=== PATIENT | female | born 1955 | race Caucasian/White ===

== ENCOUNTER 2019-12-10 | Outpatient (REF) | payer OTHER, SELFPAY | END 2019-12-10 00:01 | disposition home or self-care (01) | LOC: HO.LNP | PROVIDERS: Visit Provider Obstetrics & Gynecology | DX: Z13.89 Encounter for screening for other disorder (principal) ==

== ENCOUNTER → 2019-12-10 07:53 | Outpatient (BNVA) | payer OTHER, SELFPAY | PROVIDERS: PCP Internal Medicine; Referring Provider Internal Medicine; Visit Provider Obstetrics & Gynecology | DX: Z01.419 Encounter for gynecological examination (general) (routine) without abnormal findings (principal) | CPT/HCPCS: 87480; 87491; 87510; 87591; 87660 ==

== ENCOUNTER 2020-02-14 11:51 | Outpatient (REF) | payer OTHER, SELFPAY | END 2020-02-14 11:52 | disposition home or self-care (01) | LOC: HO.LAB 11:51 | PROVIDERS: Visit Provider Internal Medicine | DX: Z20.828 Contact with and (suspected) exposure to other viral communicable diseases (principal) | CPT/HCPCS: C9803; U0003 ==

== ENCOUNTER 2020-08-21 08:08 | Outpatient (REF) | payer OTHER, SELFPAY ==
[2020-08-21 09:26] LABS: Alanine Aminotransferase 18 U/L (0-31); Albumin Level 4.1 g/dL (3.5-5.0); Alkaline Phosphatase 56 U/L (39-117); Anion Gap 8 (12-20); Aspartate Amino Transferase 21 U/L (5-31); Bilirubin Total 0.9 mg/dL (0.0-1.0); Blood Urea Nitrogen 20 mg/dL (9-16); Calcium 9.4 mg/dL (8.4-10.2); Carbon Dioxide 30 mmol/L (22-29); Chloride 108 mmol/L (96-108); Cholesterol 204 mg/dL; Estimated Glomerular Filt Rate 52; Glucose Fasting 114 mg/dL (60-99); HDL Cholesterol 61 mg/dL; LDL Cholesterol Calculated 132 mg/dl; Potassium 4.3 mmol/L (3.3-5.1); Sodium 142 mmol/L (135-145); Total Protein 6.7 g/dL (6.5-8.0); Triglycerides 58 mg/dL
[2020-08-21 11:03] LABS: Glucose Urine UA NEG (NEG); Leukocyte Esterase Urine NEG (NEG); Nitrite Urine NEG (NEG); Specific Gravity - Urine 1.025 (1.005-1.025); Urine Blood NEG (NEG); Urine Ketones NEG (NEG); Urine Protein NEG (NEG-TRACE)
[2020-08-21 11:15] LABS: Appearance Urine CLEAR; Color Urine YELLOW
[2020-08-26 13:41] LABS: Vitamin D 25-OH, D2 <4 ng/mL; Vitamin D 25-OH, D3 28 ng/mL; Vitamin D 25-OH, Total 28 ng/mL (30-100)
== END 2020-08-21 08:09 | disposition home or self-care (01) ==
LOC: HO.LAB 08:08
PROVIDERS: PCP Internal Medicine; Visit Provider Internal Medicine
DX: R30.0 Dysuria (principal); E78.5 Hyperlipidemia, unspecified; E55.9 Vitamin D deficiency, unspecified
CPT/HCPCS: 36415; 80053; 80061; 81003; 82306

== ENCOUNTER 2020-11-04 15:59 | Outpatient (REF) | payer OTHER, SELFPAY ==
--- NOTE | ~2020-11-04 | MM_ITS ---
EXAMINATION: MM SCREENING DIGITAL BREAST TOMOSYNTHESIS, BILATERAL CLINICAL INFORMATION: Screening. Asymptomatic. The lifetime risk of breast cancer based on the Tyrer-Cuzick Model is 6%. COMPARISON: Mammography: 10/09/2019, 07/17/2018, 05/11/2017 TECHNIQUE: Digital breast tomosynthesis is performed in both the craniocaudal and mediolateral oblique views along with computer-aided detection (CAD). Synthesized 2D images are generated from the tomosynthesis. FINDINGS: The breasts are heterogeneously dense, which may obscure small masses (ACR BI-RADS breast composition Category c). Tissue composition borders on extremely dense. The parenchymal pattern is similar to prior studies. There is no developing density or interval significant mass or architectural abnormality. There are no abnormal calcifications. Biopsy clip marker again noted on right mid central 9:00 position. The axilla and skin contours are unremarkable. No significant changes. MM/MM tomosynthesis screening BI IMPRESSION: No mammographic evidence of malignancy. ASSESSMENT: BI-RADS 1: Negative RECOMMENDATION: Routine annual mammography screening. This patient's information was entered into a reminder system with a target due date for their next mammogram.
== END 2020-11-04 16:00 | disposition home or self-care (01) ==
LOC: HO.MAMMO 15:59
PROVIDERS: Visit Provider Internal Medicine
DX: Z12.31 Encounter for screening mammogram for malignant neoplasm of breast (principal)
CPT/HCPCS: 77063; 77067

== ENCOUNTER 2020-12-05 08:06 | Outpatient (REF) | payer OTHER, SELFPAY ==
[2020-12-05 09:14] LABS: Alanine Aminotransferase 17 U/L (0-31); Albumin Level 4.4 g/dL (3.5-5.0); Alkaline Phosphatase 63 U/L (39-117); Anion Gap 12 (12-20); Aspartate Amino Transferase 20 U/L (5-31); Bilirubin Total 1.4 mg/dL (0.0-1.0); Blood Urea Nitrogen 23 mg/dL (9-16); Calcium 9.6 mg/dL (8.4-10.2); Carbon Dioxide 26 mmol/L (22-29); Chloride 107 mmol/L (96-108); Estimated Glomerular Filt Rate 52; Glucose Fasting 113 mg/dL (60-99); Potassium 4.1 mmol/L (3.3-5.1); Sodium 141 mmol/L (135-145); Total Protein 7.3 g/dL (6.5-8.0)
== END 2020-12-05 08:07 | disposition home or self-care (01) ==
LOC: HO.LAB 08:06
PROVIDERS: PCP Internal Medicine; Visit Provider Internal Medicine
DX: I10 Essential (primary) hypertension (principal)
CPT/HCPCS: 36415; 80053

== ENCOUNTER 2021-01-18 08:24 | Outpatient (REF) | payer OTHER, SELFPAY ==
[2021-01-23 04:27] LABS: HPV 16 RNA NOT DETECTED (NOT DETECTED); HPV mRNA E6/E7 rflx Detected (Not Detected)
== END 2021-01-18 08:25 | disposition home or self-care (01) ==
LOC: HO.LAB 08:24
PROVIDERS: Visit Provider Advanced Practice Midwife
DX: Z01.419 Encounter for gynecological examination (general) (routine) without abnormal findings (principal); R23.2 Flushing; Z12.11 Encounter for screening for malignant neoplasm of colon
CPT/HCPCS: 87624; 87625; 88142

== ENCOUNTER 2021-02-24 12:47 | Outpatient (REF) | payer OTHER, SELFPAY | END 2021-02-24 12:48 | disposition home or self-care (01) | LOC: HO.LAB 12:47 | PROVIDERS: Visit Provider Obstetrics & Gynecology | DX: R87.610 Atypical squamous cells of undetermined significance on cytologic smear of cervix (ASC-US) (principal); R87.810 Cervical high risk human papillomavirus (HPV) DNA test positive | CPT/HCPCS: 57454; 88305; 88342; 88360 ==

== ENCOUNTER → 2021-03-15 15:26 | Outpatient (BNVA) | payer OTHER, SELFPAY | PROVIDERS: Visit Provider Obstetrics & Gynecology ==

== ENCOUNTER 2021-04-19 11:02 | Outpatient (REF) | payer OTHER, SELFPAY ==
[2021-04-19 12:06] LABS: Appearance Urine CLEAR; Color Urine YELLOW; Glucose Urine UA NEG (NEG); Leukocyte Esterase Urine NEG (NEG); Nitrite Urine NEG (NEG); Specific Gravity - Urine 1.015 (1.005-1.025); Urine Blood NEG (NEG); Urine Ketones NEG (NEG); Urine Protein NEG (NEG-TRACE)
== END 2021-04-19 11:03 | disposition home or self-care (01) ==
LOC: HO.LAB 11:02
PROVIDERS: PCP Internal Medicine; Visit Provider Internal Medicine
DX: R30.0 Dysuria (principal); I10 Essential (primary) hypertension; E78.5 Hyperlipidemia, unspecified; E55.9 Vitamin D deficiency, unspecified; R73.02 Impaired glucose tolerance (oral); R87.810 Cervical high risk human papillomavirus (HPV) DNA test positive; R87.610 Atypical squamous cells of undetermined significance on cytologic smear of cervix (ASC-US)
CPT/HCPCS: 81003

== ENCOUNTER 2021-04-26 05:59 | Outpatient (REF) | payer OTHER, SELFPAY ==
[2021-04-26 06:11] LABS: MANUAL DIFF FLAG NO
[2021-04-26 07:36] LABS: Basophils Percent Auto 0.9 % (0-2); Eosinophils Absolute Auto 0.2 X10*3/uL (0.0-0.4); Eosinophils Percent Auto 3.7 % (0-4); Hematocrit 39.5 % (37.0-47.0); Imm Gran Abs Auto 0.02 X10*3/uL (0.00-0.03); Imm Gran Pct Auto 0.5 % (0.0-0.4); Lymphocytes Absolute Auto 1.3 X10*3/uL (1.2-4.9); Lymphocytes Percent Auto 30.8 % (20-40); Mean Corpuscular HGB Conc 32.9 g/dl (31.0-35.0); Mean Corpuscular Hemoglobin 29.5 pg (27.0-33.0); Mean Corpuscular Volume 89.6 fL (80.0-98.0); Mean Platelet Volume 11.5 fL (9.4-12.3); Monocytes Absolute Auto 0.4 X10*3/uL (0.1-1.2); Monocytes Percent Auto 9.5 % (2-11); Neutrophils Absolute Auto 2.4 x10*3/uL (2.0-8.3); Neutrophils Percent Auto 54.6 % (45-73); Platelet Count 222 X10*3/uL (160-400); Red Blood Count 4.41 X10*6/uL (4.20-5.50); Red Cell Distribution Width 12.4 % (11.0-16.0); White Blood Count 4.3 X10*3/uL (4.8-10.8)
[2021-04-26 08:02] LABS: Alanine Aminotransferase 20 U/L (0-31); Albumin Level 4.3 g/dL (3.5-5.0); Alkaline Phosphatase 61 U/L (39-117); Anion Gap 13 (12-20); Aspartate Amino Transferase 22 U/L (5-31); Bilirubin Total 1.2 mg/dL (0.0-1.0); Blood Urea Nitrogen 27 mg/dL (9-16); Calcium 10.1 mg/dL (8.4-10.2); Carbon Dioxide 31 mmol/L (22-29); Chloride 101 mmol/L (96-108); Cholesterol 212 mg/dL; Estimated Glomerular Filt Rate 52; Glucose Fasting 109 mg/dL (60-99); HDL Cholesterol 64 mg/dL; LDL Cholesterol Calculated 134 mg/dl; Potassium 4.3 mmol/L (3.3-5.1); Sodium 141 mmol/L (135-145); Total Protein 7.3 g/dL (6.5-8.0); Triglycerides 73 mg/dL
[2021-04-30 13:31] LABS: Vitamin D 25-OH, D2 <4 ng/mL; Vitamin D 25-OH, D3 28 ng/mL; Vitamin D 25-OH, Total 28 ng/mL (30-100)
== END 2021-04-26 06:00 | disposition home or self-care (01) ==
LOC: HO.LAB 05:59
PROVIDERS: PCP Internal Medicine; Visit Provider Internal Medicine
DX: E55.9 Vitamin D deficiency, unspecified (principal); R73.02 Impaired glucose tolerance (oral); E78.5 Hyperlipidemia, unspecified; R87.610 Atypical squamous cells of undetermined significance on cytologic smear of cervix (ASC-US); R87.810 Cervical high risk human papillomavirus (HPV) DNA test positive
CPT/HCPCS: 36415; 80053; 80061; 82306; 85025

== ENCOUNTER 2021-05-27 15:41 | Outpatient (REF) | payer OTHER, SELFPAY ==
--- NOTE | ~2021-05-27 | US_ITS ---
EXAMINATION: US PELVIS CLINICAL INFORMATION: Pelvic and perineal pain. COMPARISON: None TECHNIQUE: Ultrasound of the pelvis is performed using both transabdominal and transvaginal transducers along with Doppler. Transvaginal imaging is performed due to inadequate visualization transabdominally. FINDINGS: Uterus: The uterus is anteverted and measures 7.3 x 3.1 x 4.8 cm. Nabothian cysts are visualized at the cervix. The double wall endometrial thickness is 2 mm. Small amount of fluid in the endometrial canal. The uterus is smooth in contour and has normal myometrial echogenicity. No visible fibroid. Adnexa: Both ovaries are visualized. There is normal color flow to the adnexa. There is no ovarian torsion. There is no pelvic ascites or fluid collection. Right ovary measures 1.6 x 0.8 x 1.1 cm. Left ovary measures 2.4 x 1.2 x 0.9 cm. US/US pelvic and transvaginal IMPRESSION: No suspicious findings. No adnexal mass. Trace fluid noted in the endometrial canal.
== END 2021-05-27 15:42 | disposition home or self-care (01) ==
LOC: HO.US 15:41
PROVIDERS: PCP Internal Medicine; Visit Provider Internal Medicine
DX: R10.2 Pelvic and perineal pain (principal)
CPT/HCPCS: 76830; 76856

== ENCOUNTER 2021-10-19 13:15 | Outpatient (REF) | payer OTHER, SELFPAY ==
--- NOTE | ~2021-10-19 | XR_ITS ---
EXAMINATION: XR CHEST CLINICAL INFORMATION: Chest pain COMPARISON: Chest x-ray 08/28/2006 TECHNIQUE: 2 views of the chest were obtained. FINDINGS: The lungs are clear. No airspace consolidation, pleural effusion, or pneumothorax. The cardiomediastinal silhouette is within normal limits. No acute osseous injury. Mild multilevel degenerative disc disease in the thoracic spine. XR/XR chest 2V IMPRESSION: No acute pulmonary process.
== END 2021-10-19 13:16 | disposition home or self-care (01) ==
LOC: HO.HMGCX 13:15
PROVIDERS: PCP Internal Medicine; Visit Provider Physician Assistant
DX: R07.89 Other chest pain (principal)
CPT/HCPCS: 71046

== ENCOUNTER 2021-11-06 08:02 | Outpatient (REF) | payer OTHER, SELFPAY ==
[2021-11-06 09:19] LABS: Alanine Aminotransferase 22 U/L (0-31); Albumin Level 4.1 g/dL (3.5-5.0); Alkaline Phosphatase 58 U/L (39-117); Anion Gap 15 (12-20); Aspartate Amino Transferase 19 U/L (5-31); Bilirubin Total 1.8 mg/dL (0.0-1.0); Blood Urea Nitrogen 20 mg/dL (9-16); Calcium 9.4 mg/dL (8.4-10.2); Carbon Dioxide 26 mmol/L (22-29); Chloride 103 mmol/L (96-108); Cholesterol 235 mg/dL; Estimated Glomerular Filt Rate 49; Glucose Fasting 110 mg/dL (60-99); HDL Cholesterol 58 mg/dL; LDL Cholesterol Calculated 166 mg/dl; Potassium 4.3 mmol/L (3.3-5.1); Sodium 140 mmol/L (135-145); Triglycerides 59 mg/dL
[2021-11-11 12:06] LABS: Vitamin D 25-OH, D2 <4 ng/mL; Vitamin D 25-OH, D3 30 ng/mL; Vitamin D 25-OH, Total 30 ng/mL (30-100)
== END 2021-11-06 08:03 | disposition home or self-care (01) ==
LOC: HO.LAB 08:02
PROVIDERS: PCP Internal Medicine; Visit Provider Internal Medicine
DX: E55.9 Vitamin D deficiency, unspecified (principal); E78.5 Hyperlipidemia, unspecified; I10 Essential (primary) hypertension
CPT/HCPCS: 36415; 80053; 80061; 82306

== ENCOUNTER 2021-11-09 15:47 | Outpatient (REF) | payer OTHER, SELFPAY ==
--- NOTE | ~2021-11-09 | MM_ITS ---
EXAMINATION: MM SCREENING DIGITAL BREAST TOMOSYNTHESIS, BILATERAL CLINICAL INFORMATION: Screening. Asymptomatic. The lifetime risk of breast cancer based on the Tyrer-Cuzick Model is 5.2%. COMPARISON: Mammography: November 04, 2020 and studies dating back to January 27, 2016 TECHNIQUE: Digital breast tomosynthesis is performed in both the craniocaudal and mediolateral oblique views along with computer-aided detection (CAD). Synthesized 2D images are generated from the tomosynthesis. FINDINGS: The breasts are heterogeneously dense, which may obscure small masses (ACR BI-RADS breast composition Category c). There are no new significant masses, abnormal calcifications, or other abnormalities. Circumscribed density seen about the deep aspect of the right breast in mediolateral oblique projection which is stable. MM/MM tomosynthesis screening BI IMPRESSION: No significant changes from prior exam. ASSESSMENT: BI-RADS 1: Negative RECOMMENDATION: Routine annual mammography screening. This patient's information was entered into a reminder system with a target due date for their next mammogram.
== END 2021-11-09 15:48 | disposition home or self-care (01) ==
LOC: HO.MAMMO 15:47
PROVIDERS: PCP Internal Medicine; Visit Provider Internal Medicine
DX: Z12.31 Encounter for screening mammogram for malignant neoplasm of breast (principal)
CPT/HCPCS: 77063; 77067

== ENCOUNTER → 2022-02-15 14:43 | Outpatient (BNVA) | payer OTHER, SELFPAY | PROVIDERS: PCP Internal Medicine; Visit Provider Nurse Practitioner | DX: R19.5 Other fecal abnormalities (principal) ==

== ENCOUNTER 2022-04-26 12:58 | Outpatient (REF) | payer MEDICARE, SELFPAY ==
[2022-04-26 16:00] LABS: Syphilis Screen Nonreactive (Nonreactive)
[2022-04-26 16:02] LABS: HBc Num1 0.11 S/CO (0.00-0.79); HIV AB/AG Nonreactive (Nonreactive); HIV Num 1 0.05 S/CO (0.00-0.99); Hepatitis B Core Antibody Nonreactive (Nonreactive); ~HepC Num1 0.14 S/CO (0.00-0.79); ~Hepatitis C Antibody Nonreactive (Nonreactive)
[2022-04-26 18:24] LABS: CT PCR NOT DETECTED (Not Detect.); NG PCR NOT DETECTED (Not Detect.)
== END 2022-04-26 12:59 | disposition home or self-care (01) ==
LOC: HO.LAB 12:58
PROVIDERS: PCP Internal Medicine; Visit Provider Advanced Practice Midwife
DX: Z01.419 Encounter for gynecological examination (general) (routine) without abnormal findings (principal); Z11.3 Encounter for screening for infections with a predominantly sexual mode of transmission; Z11.4 Encounter for screening for human immunodeficiency virus [HIV]; Z20.2 Contact with and (suspected) exposure to infections with a predominantly sexual mode of transmission; Z86.19 Personal history of other infectious and parasitic diseases
CPT/HCPCS: 0353U; 86704; 86780; 86803; 87389; 87480; 87510; 87624; 87625; 87660; 88142

== ENCOUNTER 2022-04-26 13:30 | Outpatient (REF) | payer MEDICARE, SELFPAY ==
[2022-04-27 13:17] LABS: BV Int Neg Control Negative (Negative); BV Int Pos Control Positive (Positive)
[2022-04-30 01:44] LABS: HPV 16 RNA NOT DETECTED (NOT DETECTED); HPV mRNA E6/E7 rflx Detected (Not Detected)
== END 2022-04-26 13:31 | disposition home or self-care (01) ==
LOC: HO.LNP 13:30
PROVIDERS: Visit Provider Advanced Practice Midwife
DX: Z01.419 Encounter for gynecological examination (general) (routine) without abnormal findings (principal); Z20.2 Contact with and (suspected) exposure to infections with a predominantly sexual mode of transmission; Z86.19 Personal history of other infectious and parasitic diseases
CPT/HCPCS: 87480; 87510; 87624; 87625; 87660; 88142

== ENCOUNTER 2022-05-18 09:04 | Day surgery (SDC) | payer MEDICARE, SELFPAY ==
[2022-05-12 15:02] VITALS: BMI 23.9
--- NOTE | 2022-05-17 13:10 | P.CONAN_ITS ---
Documented by User: Milena Miller NP 05/17/22 13:12 HPI - Anesthesia Eval Consult details Narrative: 67yo F for Colonoscopy PMFSH Active Problems Active Problems: All Active Problems (Updated 05/16/22 @ 17:00 by Willow Murphy MD) Epigastric pain (Acute) Physical exam (Acute) Positive colorectal cancer screening using Cologuard test (Acute) Colon cancer screening (Acute) Pre-op examination (Acute) Pelvic pain in female (Acute) ASCUS with positive high risk HPV cervical (Acute) Impaired glucose tolerance (Acute) Right elbow pain (Acute) Vitamin D insufficiency (Acute) Hypertension (Acute) Dyslipidemia (Acute) Past Medical History Medical History (Updated 05/18/22 @ 09:20 by Merry Osorio, RN) BONIFACIO I (cervical intraepithelial neoplasia I) Dyslipidemia GERD (gastroesophageal reflux disease) Hypercholesterolemia Hypertension Impaired glucose tolerance Pelvic pain in female Right elbow pain Vitamin D deficiency Vitamin D insufficiency Family History Family History Father Lung cancer Mother Stroke Hypertension Surgical History Surgical History (Updated 05/18/22 @ 09:16 by Merry Osorio RN) H/O right breast biopsy Hx of colonoscopy Social History Social History Housing: House Alcohol intake: never Patient Tobacco Use Status: Former Tobacco user Quit Date: 2009 Tobacco use type: Cigarette e-Cigarette/Vaping Use: Never Used Second Hand Smoke Exposure: No service: No Current occupational status: employed Sexual orientation: Straight/Heterosexual Gender identity: Female Cognitive needs: No Hearing needs: No Vision needs: Yes Meds Allergies Allergy/AdvReac Type Severity Reaction Status Date / Time bee pollen [BEE STINGS] Allergy Intermediate Swelling Verified 05/16/22 16:53 Exam Exam Date and Time: May 17, 2022 1310 Height,Weight and Vital Signs: Height 5 ft 7 in Weight 69.4 kg Pertinent Lab Results Pertinent Lab Results: Laboratory Tests 04/26/21 11/06/21 06:08 08:13 WBC 4.3 L Hgb 13.0 Hct 39.5 Plt Count 222 Sodium 140 Potassium 4.3 Chloride 103 Carbon Dioxide 26 BUN 20 H Creatinine 1.12 Narrative Narrative: EKG 09/2021 NSR @ 66 Assessment and Plan Assessment Anesthesia Assessment: Chart Reviewed Documented by User: Kehinde Puente MD 05/18/22 16:21 [facility] Past Medical History Medical History (Updated 05/18/22 @ 09:20 by Merry Osorio RN) BONIFACIO I (cervical intraepithelial neoplasia I) Dyslipidemia GERD (gastroesophageal reflux disease) Hypercholesterolemia Hypertension Impaired glucose tolerance Pelvic pain in female Right elbow pain Vitamin D deficiency Vitamin D insufficiency Functional capacity: independent ambulation Family History Family History Father Lung cancer Mother Stroke Hypertension Family history of problems with anesthesia: No Surgical History Surgical History (Updated 05/18/22 @ 09:16 by Merry Osorio RN) H/O right breast biopsy Hx of colonoscopy History of Problems with Anesthesia: No Social History Social History Housing: House Alcohol intake: never Patient Tobacco Use Status: Former Tobacco user Quit Date: 2009 Tobacco use type: Cigarette e-Cigarette/Vaping Use: Never Used Second Hand Smoke Exposure: No service: No Current occupational status: employed Sexual orientation: Straight/Heterosexual Gender identity: Female Cognitive needs: No Hearing needs: No Vision needs: Yes Meds Allergies Allergy/AdvReac Type Severity Reaction Status Date / Time bee pollen [BEE STINGS] Allergy Intermediate Swelling Verified 05/16/22 16:53 Exam Airway Mallampati Class: III TM Dist: >3cm Neck ROM: Full Loose/Missing/Broken Teeth: Yes Heart: S1,S2 Lungs: b/l breath souds Assessment and Plan Assessment Anesthesia Assessment: Anesthesia Plan Discussed Final Anesthetic Review Family History of Problems with Anesthesia: No History of Problems with Anesthesia: No NPO: Yes ASA Class: II Final Preanesthetic Review: Meds/Allgs Chart Reviewed, Consent Obtained/Reviewed and Anes Risks/Benef Reviewed Patient Risk: Intermediate Procedure Risk: Intermediate Anesthetic Plan Anesthetic Plan: MAC: Disposition: Standard PACU
--- NOTE | 2022-05-18 09:13 | MHC.SHP ---
Pre-Procedural Eval Section A Date of Service: 05/18/22 Section B Chief Complaint: Other fecal abnormalities Details of Present Illness: pos cologuard Relevant Family History (Specify if Yes): No Relevant Social History: None Present Medications: see Short Stay Collaborative assessment Medical History: Significant History (Dyslipidemia GERD (gastroesophageal reflux disease) Hypercholesterolemia Hypertension Impaired glucose tolerance Pelvic pain in female Right elbow pain Vitamin D deficiency Vitamin D insufficiency) History of Previous Operations: Relevant previous surgery/procedure and date(s) (H/O right breast biopsy) Allergies: Allergies Allergy/AdvReac Type Severity Reaction Status Date / Time bee pollen [BEE STINGS] Allergy Intermediate Swelling Verified 05/16/22 16:53 Review of Systems Sugical H&P ROS: Negative: Constitution, Cardiovascular, Respiratory, Neurological, Psychiatric, Hem-Onc, Allergic/Immunologic, Gastrointestinal, Genitourinary, Musculoskeletal, Integumentary, Endocrine and Eyes/Ears/Nose/Throat Exam Surgical H&P Exam: Normal: HEENT, Normal: Heart, Normal: Lungs, Normal: Extremities, Normal: Abdomen, Normal: Skin and Normal: Neurological Plan Diagnosis/Plan: Unchanged I have reviewed the history and physical and performed a pertinent physical examination on my patient. No changes have occurred unless specified. Time Spent With Patient Time: Total time managing care of this patient today ____ minutes.
[2022-05-18 09:32] VITALS: BP 166/64; PULSE 71; RESP 15; TEMP 36.8; O2SAT 99
[2022-05-18] MEDS: Lactated Ringers 1,000 ML 100 ML IVCONT (09:38)
--- NOTE | 2022-05-18 09:50 | P.OP_ITS ---
Operative Note Operative Note Date of Service: 05/18/22 Narrative: Operative Information Procedure Description: Colonoscopy Indication: pos cologuard test Anesthesia: MAC COLONOSCOPY Instrument: Olympus variable stiffness pediatric scope 190L Colonoscopy Monitoring: Vital signs and clinical assessment, continuous EKG monitoring, Pulse oximetry, Carbon Dioxide monitoring and blood pressure monitoring were done throughout the procedure. Colon withdrawal time was 16 minutes. Procedure: The patient was placed in the left lateral decubitis position and pre-procedure medications were administered. After a digital rectal examination of the ano-rectum, the video colonoscope was inserted into the rectum and advanced through the colon to the cecum/TI. The colonoscope was slowly withdrawn in a retrograde panoramic fashion and the colon mucosa was carefully examined including a retroflexed view of the rectum. Findings and interventions are described below. Procedure Difficulty: easy Findings: Terminal Ileum-normal Cecum:normal Ascending Colon: 5-8 mm sessile polyp removed with cold forceps Transverse Colon - 9-10 mm sessile polyp removed with cold snare, few inverted tics noted Descending Colon:normal Sigmoid Colon: mild diverticulosis noted Rectum: Retroflexion with small internal hemorrhoids, grade I Anorectum - normal Colon preparation: [place] Bowel Preparation Scale Right colon; 2 Transverse colon: 2 Left colon; 3 (0 = Unprepared colon segment with mucosa not seen due to solid stool that cannot be cleared. 1 = Portion of mucosa of the colon segment seen, but other areas of the colon segment not well seen due to staining, residual stool and/or opaque liquid. 2 = Minor amount of residual staining, small fragments of stool and/or opaque liquid, but mucosa of colon segment seen well. 3 = Entire mucosa of colon segment seen well with no residual staining, small fragments of stool or opaque liquid) Impression and Post Procedure Diagnosis: polyps internal hemorrhoids diverticular disease Plan: High fiber diet leaflet Avoid straining at stool, epsom salts and sitz bath, anusol supps or cream Repeat Colonoscopy in 5 years due to polyps or earlier if clinically indicated Above findings were reviewed with the patient and relevant handouts were provided if indicated.
[2022-05-18 10:44] VITALS: BP 105/53; PULSE 66; RESP 16; TEMP 36.3; O2SAT 98
[2022-05-18 10:59] VITALS: BP 143/68; PULSE 64; RESP 18; TEMP 36.6; O2SAT 100
== END 2022-05-18 11:27 | disposition home or self-care (01) ==
PROVIDERS: PCP Internal Medicine; Visit Provider Internal Medicine Gastroenterology
PROC: 0DJD8ZZ Inspection of Lower Intestinal Tract, Via Natural or Artificial Opening Endoscopic (ICD-10-PCS; CPT 45378; principal; 2022-05-18 10:10)
DX: R19.5 Other fecal abnormalities (principal); D12.2 Benign neoplasm of ascending colon; D12.3 Benign neoplasm of transverse colon; K57.30 Diverticulosis of large intestine without perforation or abscess without bleeding; K64.0 First degree hemorrhoids; R10.2 Pelvic and perineal pain; K21.9 Gastro-esophageal reflux disease without esophagitis; E78.00 Pure hypercholesterolemia, unspecified; I10 Essential (primary) hypertension; R73.02 Impaired glucose tolerance (oral); E55.9 Vitamin D deficiency, unspecified; Z79.899 Other long term (current) drug therapy; Z87.891 Personal history of nicotine dependence
CPT/HCPCS: 45385; 45380; 88305

== ENCOUNTER → 2022-06-03 14:55 | Outpatient (BNVA) | payer MEDICARE, SELFPAY | PROVIDERS: PCP Internal Medicine; Visit Provider Nurse Practitioner | DX: D12.6 Benign neoplasm of colon, unspecified (principal) | CPT/HCPCS: 99212 ==

== ENCOUNTER 2022-07-01 08:35 | Outpatient (REF) | payer MEDICARE, SELFPAY ==
--- NOTE | ~2022-07-01 | FL_ITS ---
EXAMINATION: XR FLUOROSCOPY UPPER GI WITH AIR CLINICAL INFORMATION: Epigastric pain. COMPARISON: None available. TECHNIQUE: Routine upper GI air-contrast study was performed in upright and lying position. FINDINGS: Following oral administration of thick barium and effervescent granules is normal propagation of bolus from the oral cavity through the pharynx, esophagus into stomach without any evidence of obstruction, narrowing or stricture. On placing patient supine and prone lying the course, caliber and peristalsis of the stomach, duodenal bulb and the sweep is normal. The mucosal pattern of the stomach and duodenum is normal. There is gastroesophageal reflux. There is no evidence of hernia. FLUOROSCOPY TIME: 2 minutes. DOSE AREA PRODUCT: 21.742 uGy-m2 (microgray-meter squared) FL/FL upper GI w air IMPRESSION: Unremarkable upper GI air-contrast study.
== END 2022-07-01 08:36 | disposition home or self-care (01) ==
LOC: HO.XRAY 08:35
PROVIDERS: PCP Internal Medicine; Visit Provider Internal Medicine
DX: R10.13 Epigastric pain (principal)
CPT/HCPCS: 74246

== ENCOUNTER 2022-07-16 10:14 | Outpatient (REF) | payer MEDICARE, SELFPAY ==
[2022-07-16 10:21] LABS: MANUAL DIFF FLAG NO
[2022-07-16 10:30] LABS: Basophils Absolute Auto 0.1 X10*3/uL (0.0-0.2); Basophils Percent Auto 1.2 % (0-2); Eosinophils Absolute Auto 0.2 X10*3/uL (0.0-0.4); Eosinophils Percent Auto 4.5 % (0-4); Hematocrit 39.6 % (37.0-47.0); Hemoglobin 13.6 g/dl (12.0-16.0); Imm Gran Abs Auto 0.01 X10*3/uL (0.00-0.03); Imm Gran Pct Auto 0.2 % (0.0-0.4); Lymphocytes Absolute Auto 1.5 X10*3/uL (1.2-4.9); Lymphocytes Percent Auto 36.2 % (20-40); Mean Corpuscular HGB Conc 34.3 g/dl (31.0-35.0); Mean Corpuscular Hemoglobin 30.5 pg (27.0-33.0); Mean Corpuscular Volume 88.8 fL (80.0-98.0); Mean Platelet Volume 10.7 fL (9.4-12.3); Monocytes Absolute Auto 0.4 X10*3/uL (0.1-1.2); Monocytes Percent Auto 8.5 % (2-11); Neutrophils Absolute Auto 2.1 x10*3/uL (2.0-8.3); Neutrophils Percent Auto 49.4 % (45-73); Platelet Count 224 X10*3/uL (160-400); Red Blood Count 4.46 X10*6/uL (4.20-5.50); Red Cell Distribution Width 12.5 % (11.0-16.0); White Blood Count 4.3 X10*3/uL (4.8-10.8)
[2022-07-16 11:14] LABS: Alanine Aminotransferase 19 U/L (0-31); Albumin Level 4.2 g/dL (3.5-5.0); Alkaline Phosphatase 66 U/L (39-117); Anion Gap 10 (12-20); Aspartate Amino Transferase 20 U/L (5-31); Blood Urea Nitrogen 26 mg/dL (9-16); Calcium 9.7 mg/dL (8.4-10.2); Carbon Dioxide 28 mmol/L (22-29); Chloride 108 mmol/L (96-108); Cholesterol 218 mg/dL; Estimated Glomerular Filt Rate 49; Glucose Fasting 112 mg/dL (60-99); HDL Cholesterol 56 mg/dL; Iron 92 mcg/dL (30-160); LDL Cholesterol Calculated 147 mg/dl; Percent Iron Saturation 29 % (15-50); Potassium 4.8 mmol/L (3.3-5.1); Sodium 141 mmol/L (135-145); Total Iron Binding Capacity 314 mcg/dL (228-428); Triglycerides 78 mg/dL; Unsaturated Iron Binding 222 ug/dL
[2022-07-16 11:42] LABS: Folate 16.1 ng/mL (> or = 4.0); Vitamin B12 294 pg/mL (200-900); Vitamin D 25-OH Total 37.7 ng/mL (>30)
== END 2022-07-16 10:15 | disposition home or self-care (01) ==
LOC: HO.LAB 10:14
PROVIDERS: PCP Internal Medicine; Visit Provider Internal Medicine
DX: Z00.00 Encounter for general adult medical examination without abnormal findings (principal); E55.9 Vitamin D deficiency, unspecified; E78.5 Hyperlipidemia, unspecified; E53.8 Deficiency of other specified B group vitamins; D64.9 Anemia, unspecified
CPT/HCPCS: 36415; 80053; 80061; 82306; 82607; 82746; 83540; 85025

== ENCOUNTER 2022-08-22 08:18 | Outpatient (REF) | payer MEDICARE, SELFPAY ==
--- NOTE | ~2022-08-22 | US_ITS ---
EXAMINATION: US ABDOMEN COMPLETE CLINICAL INFORMATION: Unspecified abdominal pain. COMPARISON: Ultrasound abdomen complete 12/20/2016. Ultrasound abdomen limited 10/02/2014. TECHNIQUE: Real-time imaging of the abdominal viscera. FINDINGS: PANCREAS: Normal. ABDOMINAL AORTA: The proximal, mid, and distal segments are normal in caliber. INFERIOR VENA CAVA: Visualized portions are normal. LIVER: Normal. The liver is normal in size. The liver contour is normal. Parenchymal echogenicity is normal. No focal hepatic lesion. There is no intrahepatic biliary duct dilatation seen. GALLBLADDER: Normal. The gallbladder is physiologically distended without evidence of stones, sludge, polyps, wall thickening or pericholecystic fluid. COMMON BILE DUCT: Normal in caliber measuring 0.6 cm in diameter. RIGHT KIDNEY: Normal. No hydronephrosis. No renal calculi or focal parenchymal lesions. The kidney measures 10.5 cm in maximum dimension. LEFT KIDNEY: Normal. No hydronephrosis. No renal calculi or focal parenchymal lesions. The kidney measures 10.1 cm in maximum dimension. SPLEEN: Normal. The spleen measures 9.8 cm in maximum dimension. FREE FLUID: None. US/US abdomen complete IMPRESSION: Unremarkable examination.
== END 2022-08-22 08:19 | disposition home or self-care (01) ==
LOC: HO.US 08:18
PROVIDERS: PCP Internal Medicine; Visit Provider Internal Medicine
DX: R10.9 Unspecified abdominal pain (principal)
CPT/HCPCS: 76700

== ENCOUNTER → 2022-09-07 09:12 | Outpatient (BNV) | payer MEDICARE, SELFPAY | PROVIDERS: Visit Provider Internal Medicine | DX: D72.819 Decreased white blood cell count, unspecified (principal) | CPT/HCPCS: 99204 ==

== ENCOUNTER 2022-10-24 15:47 | Outpatient (REF) | payer MEDICARE, SELFPAY ==
[2022-10-24 15:58] LABS: MANUAL DIFF FLAG NO
[2022-10-24 16:17] LABS: Basophils Percent Auto 0.5 % (0-2); Eosinophils Absolute Auto 0.2 X10*3/uL (0.0-0.4); Eosinophils Percent Auto 2.6 % (0-4); Hematocrit 36.1 % (37.0-47.0); Hemoglobin 12.2 g/dl (12.0-16.0); Imm Gran Abs Auto 0.02 X10*3/uL (0.00-0.03); Imm Gran Pct Auto 0.3 % (0.0-0.4); Lymphocytes Percent Auto 26.5 % (20-40); Mean Corpuscular HGB Conc 33.8 g/dl (31.0-35.0); Mean Corpuscular Hemoglobin 30.1 pg (27.0-33.0); Mean Corpuscular Volume 89.1 fL (80.0-98.0); Mean Platelet Volume 10.8 fL (9.4-12.3); Monocytes Absolute Auto 0.6 X10*3/uL (0.1-1.2); Monocytes Percent Auto 7.6 % (2-11); Neutrophils Absolute Auto 4.8 x10*3/uL (2.0-8.3); Neutrophils Percent Auto 62.5 % (45-73); Platelet Count 221 X10*3/uL (160-400); Red Blood Count 4.05 X10*6/uL (4.20-5.50); Red Cell Distribution Width 12.4 % (11.0-16.0); White Blood Count 7.7 X10*3/uL (4.8-10.8)
[2022-10-24 16:44] LABS: Alanine Aminotransferase 15 U/L (0-31); Albumin Level 4.1 g/dL (3.5-5.0); Alkaline Phosphatase 58 U/L (39-117); Anion Gap 11 (12-20); Aspartate Amino Transferase 17 U/L (5-31); Blood Urea Nitrogen 17 mg/dL (9-16); Calcium 9.8 mg/dL (8.4-10.2); Carbon Dioxide 27 mmol/L (22-29); Chloride 106 mmol/L (96-108); Estimated Glomerular Filt Rate > 60; Glucose Random 91 mg/dL (60-115); Potassium 4.4 mmol/L (3.3-5.1); Sodium 140 mmol/L (135-145); Total Protein 7.1 g/dL (6.5-8.0)
[2022-10-24 17:15] LABS: Folate 15.6 ng/mL (> or = 4.0); Vitamin B12 395 pg/mL (200-900)
== END 2022-10-24 15:48 | disposition home or self-care (01) ==
LOC: HO.LAB 15:47
PROVIDERS: PCP Internal Medicine; Visit Provider Internal Medicine
DX: E53.8 Deficiency of other specified B group vitamins (principal); K21.9 Gastro-esophageal reflux disease without esophagitis; D64.9 Anemia, unspecified
CPT/HCPCS: 36415; 80053; 82607; 82746; 85025

== ENCOUNTER 2022-11-15 15:32 | Outpatient (REF) | payer MEDICARE, SELFPAY | END 2022-11-15 15:33 | disposition home or self-care (01) | LOC: HO.MAMMO 15:32 | PROVIDERS: PCP Internal Medicine; Visit Provider Internal Medicine | DX: Z12.31 Encounter for screening mammogram for malignant neoplasm of breast (principal) | CPT/HCPCS: 77063; 77067 ==

== ENCOUNTER → 2022-11-15 15:45 | Outpatient (BNV) | payer MEDICARE, SELFPAY | PROVIDERS: PCP Internal Medicine; Visit Provider Radiology Diagnostic Radiology | DX: Z12.31 Encounter for screening mammogram for malignant neoplasm of breast (principal) | CPT/HCPCS: 77063; 77067 ==

== ENCOUNTER 2022-12-29 17:24 | Emergency (ER) | payer MEDICARE, SELFPAY ==
--- NOTE | ~2022-12-29 | XR_ITS ---
EXAMINATION: XR CHEST CLINICAL INFORMATION: Hypertensive, palpitations. COMPARISON: Chest radiograph 10/19/2021. TECHNIQUE: PA view of the chest was obtained. FINDINGS: Normal appearance of the cardiomediastinal silhouette. No focal airspace opacity, pleural effusion or pneumothorax. No acute osseous findings. Visualized upper abdomen is within normal limits. XR/XR chest 1V IMPRESSION: No acute cardiopulmonary findings.
--- NOTE | 2022-12-29 17:32 | ECG_ITS ---
Test Reason : HIGH BP Blood Pressure : / mmHG Vent. Rate : 066 BPM Atrial Rate : 066 BPM P-R Int : 162 ms QRS Dur : 094 ms QT Int : 422 ms P-R-T Axes : 075 066 064 degrees QTc Int : 442 ms Normal sinus rhythm Normal ECG When compared with ECG of 25-DEC-2014 16:12, No significant change was found Referred By: Katelyn Guzman Electronically Signed By:ALONSO ROSADO MD
--- NOTE | 2022-12-29 17:34 | ED_ITS ---
HPI - General Adult General Chief complaint: Headache Stated complaint: elevated bp,headache Time Seen by Provider: 12/29/22 19:02 Source: patient Mode of arrival: ambulatory History of Present Illness HPI narrative: 67-year-old female who presents with headache that wraps around her head and is pressure and throbbing in nature without visual changes or speech changes and denies any unilateral numbness/weakness/tingling. Patient reports that she has recently been evaluated by an stock control clerk 2 months ago and that it was a dilated exam. She also endorses that she carries a diagnosis hypertension but when she developed a cough on lisinopril she was not transition on to an alternative blood pressure medication. Today when she felt the throbbing headache she took her blood pressure and noted that the systolic was over 200. She otherwise does not describe any neck pain or symptoms of infection such as fever or chills. Related Data Previous Rx's Medication Instructions Recorded epinephrine 0.3 mg/0.3 mL 0.3 mg (0.3 mL) IM Q10M PRN 08/25/20 injection, auto-injector (EpiPen anaphylaxis 30 days #1 ea 2-Mirza) cholecalciferol (vitamin D3) 25 25 mcg PO DAILY 90 days #90 caps 03/06/22 mcg (1,000 unit) capsule omeprazole 20 mg capsule,delayed 20 mg PO DAILY PRN heartburn 30 08/27/22 release days #30 caps hydrochlorothiazide 12.5 mg capsule 12.5 mg PO DAILY #14 caps 12/29/22 Allergies Allergy/AdvReac Type Severity Reaction Status Date / Time bee pollen [BEE STINGS] Allergy Intermediate Swelling Verified 08/03/22 08:02 Review of Systems 2 Review of Systems: Pertinent positives and negatives as stated in HPI FORMERLY [facility], [facility] Past Medical History Source: nursing notes reviewed Medical History Pelvic pain in female BONIFACIO I (cervical intraepithelial neoplasia I) Impaired glucose tolerance Right elbow pain Vitamin D insufficiency Dyslipidemia Vitamin D deficiency GERD (gastroesophageal reflux disease) Hypercholesterolemia Hypertension Surgical History Hx of colonoscopy H/O right breast biopsy Family History Family History Father Lung cancer Mother Stroke Hypertension Social History Social History Housing: House Alcohol intake: never Patient Tobacco Use Status: Former Tobacco user Quit Date: 2009 Tobacco use type: Cigarette e-Cigarette/Vaping Use: Never Used Second Hand Smoke Exposure: No Advance Directives: No Advance Directives Information Provided: Yes service: No Current occupational status: employed Current occupational exposures/hazards: No Sexual orientation: Straight/Heterosexual Gender identity: Female Cognitive needs: No Hearing needs: No Vision needs: Yes Physical Exam ED Vital Signs: Vital Signs - 24 hr 12/29/22 17:35 12/29/22 19:40 Temperature 98.3 F 97.7 F Pulse Rate 79 62 Respiratory Rate 18 16 Blood Pressure 186/92 H 165/56 H Pulse Oximetry 99 100 Oxygen Delivery Method Room Air Room Air BMI result Body Mass Index 26.1 VITAL SIGNS: Reviewed. GENERAL: Well developed, well nourished, in no acute distress. HEAD: Normocephalic/atraumatic EYES: PERRLA, EOMI no nystagmus EARS: Ext canals without abnormality, TMs non-bulging and non-erythematous NOSE: Nares patent bilateral OROPHARYNX: no oral lesions noted, posterior pharynx clear and non-erythematous without noted tonsillar enlargement/erythema/exudates NECK: Supple, no adenopathy LUNGS: Normal breath sounds. No adventitious sounds or accessory muscle use. SpO2<100> CARDIOVASCULAR: Regular rate and rhythm without noted murmurs, no JVD or lower extremity edema. ABDOMEN: Soft, non-tender, non-distended with bowel sounds. MUSCULOSKELETAL: No tenderness, deformities, or effusions noted on gross inspection. EXTREMITIES: No cyanosis, clubbing or edema. SKIN: Inspection of the skin reveals no rashes NEUROLOGIC: Alert and oriented x 4. Strength and sensation to light touch were grossly intact x 4 common no facial asymmetry, no pronator drift, cranial nerves 2-12 are grossly intact, heel to jerry is intact as well as past pointing. Course Course Course Narrative: 67 year old female hx of htn, GERD, dyslipidemia presents for fatigue, malise, headache ( diffuse, mild, pressure 6/10, atraumatic), nausea X 1 week Also reporting elevated BP readings at home 200/98 --> took boyfriends BP med lisinopril 4pm ( which she used to be on years ago but was dc secondary to SE cough) here with daughter. Plan- labs, ekg, trop Medical Decision Making Medical Decision Making MDM Narrative: 67-year-old female with history and clinical presentation, DDX: Headache related to elevated blood pressure, elevated blood pressure related to not being managed on medication as well as stress. There are no focal findings, there is no evidence of infection in either the history or clinical exam. Patient will be provided with Tylenol as well as started on hydrochlorothiazide for a very short period of time to bridge her until she is able contact her primary care doctor. I reviewed all investigations and hematologic indices are negative for leukocytosis or left shift, there is no anemia or thrombocytopenia. Chemistry indices do not demonstrate and PRO and there is no electrolyte or liver enzyme derangement, high sensitivity troponin is undetectable in patient did not report chest pain. In other words, there is no evidence of end-organ damage, would not proceed with head CT is there are no focal findings are other concerns to suggest intracranial hemorrhage or ischemic event. COVID-19 testing is negative. Chest x-ray is negative for infiltrate or venous congestion and otherwise my interpretation is in agreement with radiology's impression. EKG does not demonstrate acute changes when compared to prior on 12/25/2014. Patient is otherwise discharged home in stable condition with a prescription for hydrochlorothiazide and instructions to follow-up with her primary care doctor. Differential Diagnosis Differential Diagnoses: The differential diagnosis associated with the presentation includes Please see the discussion above Admission/Observation Consideration of admission/observation: Escalation of care including admission/observation considered Please see the discussion above Lab Data [facility] Lab Attestation statement: I reviewed the patient's lab results. Please see the discussion above 12/29/22 18:04 12/29/22 18:04 Labs: Lab Results 12/29/22 Range/Units 18:04 WBC 4.8 (4.8-10.8) X10*3/uL RBC 4.09 L (4.20-5.50) X10*6/uL Hgb 12.6 (12.0-16.0) g/dl Hct 36.6 L (37.0-47.0) % MCV 89.5 (80.0-98.0) fL MCH 30.8 (27.0-33.0) pg MCHC 34.4 (31.0-35.0) g/dl RDW 12.5 (11.0-16.0) % Plt Count 236 (160-400) X10*3/uL MPV 10.7 (9.4-12.3) fL Immature Gran % (Auto) 0.2 (0.0-0.4) % Neut % (Auto) 56.3 (45-73) % Lymph % (Auto) 31.3 (20-40) % Gray % (Auto) 7.9 (2-11) % Eos % (Auto) 3.5 (0-4) % Baso % (Auto) 0.8 (0-2) % Lymph # (Auto) 1.5 (1.2-4.9) X10*3/uL Gray # (Auto) 0.4 (0.1-1.2) X10*3/uL Eos # (Auto) 0.2 (0.0-0.4) X10*3/uL Baso # (Auto) 0.0 (0.0-0.2) X10*3/uL Abs Immat Gran (auto) 0.01 (0.00-0.03) X10*3/uL Absolute Neuts (auto) 2.7 (2.0-8.3) x10*3/uL Absolute Nucleated RBC 0.000 (0.0-0.012) X10*3/uL Nucleated RBC % (auto) 0.0 (0.0-0.2) /100WBC Sodium 140 (135-145) mmol/L Potassium 4.2 (3.3-5.1) mmol/L Chloride 106 (96-108) mmol/L Carbon Dioxide 25 (22-29) mmol/L Anion Gap 13 (12-20) BUN 13 (9-16) mg/dL Creatinine 0.85 (0.5-1.4) mg/dL Estim Creat Clear Calc 60.6 Estimated GFR > 60 Random Glucose 129 H (60-115) mg/dL Calcium 10.0 (8.4-10.2) mg/dL Magnesium 2.2 (1.6-2.6) mg/dL Total Bilirubin 0.6 (0.0-1.0) mg/dL AST 24 (5-31) U/L ALT 20 (0-31) U/L Alkaline Phosphatase 66 (39-117) U/L Troponin I High Sens < 2.7 (<3.5-17.0) ng/L Total Protein 7.3 (6.5-8.0) g/dL Albumin 4.0 (3.5-5.0) g/dL COVID-19 (JOSÉ MIGUEL) Negative (Negative) COVID-19 Clin Com See Note Independent Interpretation I performed an independent interpretation of an: EKG Interpretation: Normal sinus rhythm, HR-66, no STEMI, FL/QRS/QTC is within normal limits. Radiology Impression Discussion of test interpretation with radiology: I have reviewed the radiologist's reading. Radiologist Impression: Please see the discussion above External Record Review External record reviewed: Outpatient record, Prior outpatient labs and Prior outpatient radiology Chronic Conditions Patient?s care impacted by: Hypertension and Other Impaired glucose tolerance Critical Care Time Critical Care Time Critical Care Time: Yes Total Critical Care Time: 30 Attestation: I personally attest to this time spent taking care of the patient. Discharge Plan Discharge Clinical Impression: Uncontrolled hypertension, Headache Patient Disposition: Home, Self-Care Instructions: DASH Eating Plan (ED), Hypertension (ED), General Headache (ED) Additional Instructions: 1. Resume all home medications as prescribed. 2. Please take the blood pressure medications as prescribed and use [id number] Tylenol for any additional headaches. 3. This note has been sent to your primary care provider but I recommend following up with a phone call on Monday morning to set up an appointment for re-evaluation further outpatient management. Return to the ER for any acute changes such as loss of vision, speech changes, difficulty walking. Prescriptions: New hydrochlorothiazide 12.5 mg capsule 12.5 mg PO DAILY Qty: 14 0RF No Action cholecalciferol (vitamin D3) 25 mcg (1,000 unit) capsule 25 mcg PO DAILY 90 Days Qty: 90 1RF omeprazole 20 mg capsule,delayed release(DR/EC) 20 mg PO DAILY PRN (Reason: heartburn) 30 Days Qty: 30 1RF epinephrine [EpiPen 2-Mirza] 0.3 mg/0.3 mL auto-injector 0.3 mg IM Q10M PRN (Reason: anaphylaxis) 30 Days Qty: 1 1RF Rx Instructions: for 2 doses Referrals: Willow Hill MD [Primary Care Provider] -
[2022-12-29 17:35] VITALS: BP 186/92; PULSE 79; RESP 18; TEMP 36.8; O2SAT 99; BMI 26.1
[2022-12-29 18:08] LABS: MANUAL DIFF FLAG NO
--- NOTE | 2022-12-29 18:08 | MHC.EDTECH ---
Patient ekg taken in triage and was read by Provider ,Blood drawn and covid swab collected and sent to lab .
[2022-12-29 18:22] LABS: COVID-19 Test Negative (Negative); IDNOW Serial# 9DB6401D
[2022-12-29 18:32] LABS: Basophils Percent Auto 0.8 % (0-2); Eosinophils Absolute Auto 0.2 X10*3/uL (0.0-0.4); Eosinophils Percent Auto 3.5 % (0-4); Hematocrit 36.6 % (37.0-47.0); Hemoglobin 12.6 g/dl (12.0-16.0); Imm Gran Abs Auto 0.01 X10*3/uL (0.00-0.03); Imm Gran Pct Auto 0.2 % (0.0-0.4); Lymphocytes Absolute Auto 1.5 X10*3/uL (1.2-4.9); Lymphocytes Percent Auto 31.3 % (20-40); Mean Corpuscular HGB Conc 34.4 g/dl (31.0-35.0); Mean Corpuscular Hemoglobin 30.8 pg (27.0-33.0); Mean Corpuscular Volume 89.5 fL (80.0-98.0); Mean Platelet Volume 10.7 fL (9.4-12.3); Monocytes Absolute Auto 0.4 X10*3/uL (0.1-1.2); Monocytes Percent Auto 7.9 % (2-11); Neutrophils Absolute Auto 2.7 x10*3/uL (2.0-8.3); Neutrophils Percent Auto 56.3 % (45-73); Platelet Count 236 X10*3/uL (160-400); Red Blood Count 4.09 X10*6/uL (4.20-5.50); Red Cell Distribution Width 12.5 % (11.0-16.0); White Blood Count 4.8 X10*3/uL (4.8-10.8)
[2022-12-29 18:33] LABS: Alanine Aminotransferase 20 U/L (0-31); Alkaline Phosphatase 66 U/L (39-117); Anion Gap 13 (12-20); Aspartate Amino Transferase 24 U/L (5-31); Bilirubin Total 0.6 mg/dL (0.0-1.0); Blood Urea Nitrogen 13 mg/dL (9-16); Carbon Dioxide 25 mmol/L (22-29); Chloride 106 mmol/L (96-108); Creatinine Clr Calc Pharmacy 60.6; Estimated Glomerular Filt Rate > 60; Glucose Random 129 mg/dL (60-115); Magnesium 2.2 mg/dL (1.6-2.6); Potassium 4.2 mmol/L (3.3-5.1); Sodium 140 mmol/L (135-145); Total Protein 7.3 g/dL (6.5-8.0)
[2022-12-29 18:38] LABS: Troponin-I High Sensitivity < 2.7 ng/L (<3.5-17.0)
[2022-12-29 19:40] VITALS: BP 165/56; PULSE 62; RESP 16; TEMP 36.5; O2SAT 100
[2022-12-29] MEDS: Acetaminophen 325 MG TABLET 975 MG PO (20:25)
[2022-12-29] MEDS: hydroCHLOROthiazide 12.5 MG TABLET PO (20:25)
[2022-12-29 20:28] VITALS: BP 146/64
== END 2022-12-29 20:33 | disposition home or self-care (01) ==
PROVIDERS: Physician Assistant; Emergency Provider Student in an Organized Health Care Education/Training Program; PCP Internal Medicine
DX: R51.9 Headache, unspecified (principal); I10 Essential (primary) hypertension; R05.9 Cough, unspecified; R00.2 Palpitations; Z11.52 Encounter for screening for COVID-19; Z20.822 Contact with and (suspected) exposure to COVID-19; Z79.899 Other long term (current) drug therapy
CPT/HCPCS: 36415; 71045; 80053; 83735; 84484; 85025; 87635; 93005; 99283; 99284

== ENCOUNTER 2022-12-30 12:53 | Outpatient (AMB) | payer MEDICARE, SELFPAY ==
[2022-12-30 12:53] VITALS: BP 130/80; PULSE 78; O2SAT 97; BMI 25.5
--- NOTE | 2022-12-30 12:53 | A.OFFPC_ITS ---
Vital Signs 12/30/22 12:53 Height 5 ft 3 in Weight 144 lb 4 oz BMI 25.5 BP 130/80 Blood Pressure Location Lt brachial Position Sitting Pulse 78 Pulse Source Pulse Oximeter Pulse Oximetry (%) 97 Oxygen Delivery Method Room Air Intake Visit Reasons: high bp / bp medication Vulnerability Assessment Analyst Required: No Accompanied by: Self / Same As Patient Allergies bee pollen [BEE STINGS] Allergy (Intermediate, Verified 12/30/22 13:17) Swelling Medication List - Last Reconciled 12/30/22 by Ethan Peters MD cholecalciferol (vitamin D3) 25 mcg PO DAILY 90 days epinephrine (EpiPen 2-Mirza) 0.3 mg (0.3 mL) IM Q10M PRN 30 days hydrochlorothiazide 12.5 mg PO DAILY omeprazole 20 mg PO DAILY PRN 30 days Tobacco use date assessed: 12/30/22 Fall risk assessment: No Falls in past year Last assessed Fall Risk: 12/30/22 Dental Screening Dental Screen Date: 12/30/22 Did you have a dental visit in the last 12 months?: Yes Did you have a dental problem in the last 6 months where you did not have access to dental care?: No Was dental information given to patient?: Patient has dentist HPI high bp / bp medication HPI Details Patient comes in today for her HDF follow up visit She went to the ER yesterday when she checked her blood pressure and found her systolic BP to be over 200 mm States that she has been experiencing recurrent throbbing headaches lately, leading her to check her blood pressure Was on Lisinopril several months ago but she stopped taking her Rx after she developed a recurrent cough while on the medication Recalls that at her last visit with her PCP a few months ago, was advised that despite being off her Lisinopril, her blood pressure was not significantly e levated (138/62) so she was recommended to just watch and monitor her BP regularly at the time but her BP has apparently gone up much higher since She was started on HCTZ 12.5 mg QD by the ER yesterday and she was instructed to see her PCP ALEX for follow up Patient states that she currently feels okay and is happy to learn that her blood pressure has gotten a lot better at present She denies any headaches or dizziness Denies any chest pains, no SOB No nausea/vomiting, no abdominal pain No change in bowel habits noted PFSH Medical History Pelvic pain in female BONIFACIO I (cervical intraepithelial neoplasia I) Impaired glucose tolerance Right elbow pain Vitamin D insufficiency Dyslipidemia Vitamin D deficiency GERD (gastroesophageal reflux disease) Hypercholesterolemia Hypertension Surgical History Hx of colonoscopy H/O right breast biopsy Family History Father Lung cancer Mother Stroke Hypertension Social History Housing: House Alcohol intake: never Patient Tobacco Use Status: Former Tobacco user Quit Date: 2009 Tobacco use type: Cigarette e-Cigarette/Vaping Use: Never Used Second Hand Smoke Exposure: No service: No Current occupational status: employed Current occupational exposures/hazards: No Sexual orientation: Straight/Heterosexual Gender identity: Female Cognitive needs: No Hearing needs: No Vision needs: Yes Questionnaire PHQ-9 Over the last 2 weeks, how often have you been bothered by any of the following problems? 1. Little interest or pleasure in doing things: not at all 2. Feeling down, depressed, or hopeless: not at all 3. Trouble falling or staying asleep, or sleeping too much: not at all 4. Feeling tired or having little energy: not at all 5. Poor appetite or overeating: not at all 6. Feeling bad about yourself - or that you are a failure or have let yourself or your family down: not at all 7. Trouble concentrating on things, such as reading the newspaper or watching television: not at all 8. Moving or speaking so slowly that other people could have noticed. Or the opposite - being so fidgety or restless that you have been moving around a lot more than usual: not at all 9. Thoughts that you would be better off or of hurting yourself in some way: not at all Total score: 0 Depression Screening Interpretation: Negative Depression Screening Done: Yes 66908 - PHQ-9 Billing: Yes Source: Developed by Drs. Alex Godinez, Mariah Chen, Jeff Junior and colleagues, with an educational cristobal from [employer]. Thrive Questionnaire Date Thrive assessed: 12/30/22 I am a: Patient What is your living situation today?: I have a steady place to live Within the past 12 months, did the food you bought not last and you didn't have the money to get more?: Never true Within the past 12 months, did you worry whether your food would run out before you got money to buy more?: Never true Do you have trouble paying for medicines?: No Do you have trouble getting transportation to medical appointments?: No Do you have trouble paying your heating and electricity bill?: No Do you have trouble taking care of your child, family member or friend?: No Do you have trouble with day-to-day activities such as bathing, preparing meals, shopping, managing finances, etc.?: No Are you currently unemployed and looking for a job?: No Are you interested in more education?: No Please select the resources that you would like help with: None Currently or been in a relationship where the following occur: no concerns reported AUDIT C Alcohol Use Questionnaire (AUDIT-C) 1. How often do you have a drink containing alcohol?: Never Total Score: 0 Score Reviewed/Action Taken: Yes SALONI-7 AMB Questionnaire SALONI-7 Date SALONI - 7 assessed: 12/30/22 Feeling nervous, anxious, or on edge: 0 = Not at all Not being able to stop or control worryin = Not at all Worrying too much about different things: 0 = Not at all Trouble relaxin = Not at all Being so restless that it is hard to sit still: 0 = Not at all Becoming easily annoyed or irritable: 0 = Not at all Feeling afraid as if something awful might happen: 0 = Not at all Total SALONI-7 score (0-4 normal; 5-9 mild; 10-14 moderate; 15-21 severe): 0 Source: Developed by Drs. Alex Godinez, Mariah Chen, Jeff Junior and colleagues, with an educational cristobal from [employer]. Review of Systems Const Denies chills, Denies fatigue, Denies fever(s) and Denies headache(s) ENT Denies dysphagia, Denies dizziness, Denies otalgia, Denies headache(s), Denies neck pain, Denies odynophagia and Denies sore throat Card Denies chest pain, Denies palpitations and Denies dyspnea Resp Denies cough and Denies dyspnea GI Denies abdominal pain, Denies constipation, Denies dysphagia, Denies heartburn, Denies diarrhea, Denies nausea, Denies odynophagia and Denies vomiting Denies difficulty voiding, Denies nocturia and Denies dysuria Musc Denies neck pain Neuro Denies dizziness and Denies headache(s) Endo Denies fatigue and Denies palpitations Physical exam (Primary Care) Vital Signs: Last Vital Signs Pulse 78 12/30/22 12:53 BP 130/80 12/30/22 12:53 Pulse Ox 97 12/30/22 12:53 Oxygen Delivery Method Room Air 12/30/22 12:53 BMI result Body Mass Index 25.5 Tobacco/Smoking Status: Tobacco use Status Tobacco use date assessed 12/30/22 12/30/22 12:59 Patient Tobacco Use Status Former Tobacco user 12/30/22 12:59 Tobacco use type Cigarette 12/30/22 12:59 e-Cigarette/Vaping Use Never Used 12/30/22 12:59 PHQ-9: PHQ-9 Score PHQ-9: Total score 0 12/30/22 19:05 Depression Screening Interpretation: Negative Thrive Assessment: Date of Thrive Assessment Date Thrive assessed 12/30/22 12/30/22 12:59 Currently or been in a relationship where the following occur: no concerns reported Const General: no acute distress and alert Neck Neck: Yes no lymphadenopathy and Yes supple Resp Auscultation: clear to auscultation bilaterally, no rales and no wheezes Cardio Rate: regular rate Rhythm: regular rhythm Heart sounds: no murmurs GI Palpation (GI): Soft to palpation, nontender and No hepatosplenomegaly present Extrem General: Yes no clubbing, cyanosis or edema Assessment and Plan Assessment & Plan (1) Benign essential hypertension: Code(s): I10 - Essential (primary) hypertension Plan: Reinforced low sodium diet - goal is systolic BP of at least 130 mm or less She is not able to tolerate Lisinopril due to side effects (cough) and appears to be responding well to HCTZ 12.5 mg QD, which was started at the ER yesterday As she was only prescribed a 2 weeks' supply of the Rx, will send in a new Rx for the same - continue HCTZ 12.5 mg QD Patient is advised to monitor her BP regularly Plan To return as scheduled next month for her annual physical examination with her PCP Medications: Changed From hydrochlorothiazide 12.5 mg PO DAILY 14 caps 0RF To hydrochlorothiazide 12.5 mg PO DAILY 30 days 30 caps 1RF Coding Level of Care Code Est Pt Level 3 (34433) Diagnoses Benign essential hypertension I10
== END 2022-12-30 13:24 | disposition home or self-care (01) ==
PROVIDERS: PCP Internal Medicine; Visit Provider Internal Medicine
DX: I10 Essential (primary) hypertension (principal)
CPT/HCPCS: 99213

== ENCOUNTER 2023-02-08 16:47 | Outpatient (AMB) | payer MEDICARE, SELFPAY ==
--- NOTE | 2023-02-08 16:51 | A.OFFPC_ITS ---
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 Accompanied by: Self / Same As Patient Allergies bee pollen [BEE STINGS] Allergy (Intermediate, Verified 02/08/23 17:00) Swelling Medication List - Last Reconciled 02/08/23 by Willow Murphy MD cholecalciferol (vitamin D3) 25 mcg PO DAILY 90 days epinephrine (EpiPen 2-Mirza) 0.3 mg (0.3 mL) IM Q10M PRN 30 days hydrochlorothiazide 12.5 mg PO DAILY 30 days omeprazole 20 mg PO DAILY PRN 30 days Tobacco use date assessed: 12/30/22 Fall risk assessment: No Falls in past year Last assessed Fall Risk: 02/08/23 Dental Screening Dental Screen Date: 02/08/23 Did you have a dental visit in the last 12 months?: Yes Did you have a dental problem in the last 6 months where you did not have access to dental care?: No Was dental information given to patient?: Patient has dentist HPI HPI Comments History of Present Illness Details This is a 67-year-old female that comes for her physical exam. Last mammogram was 2022 and was normal. Last Pap smear was 2022. Last colonoscopy was 2022 showing tubular adenoma. No chest pain or shortness of breath. PFSH Medical History Pelvic pain in female BONIFACIO I (cervical intraepithelial neoplasia I) Impaired glucose tolerance Right elbow pain Vitamin D insufficiency Dyslipidemia Vitamin D deficiency GERD (gastroesophageal reflux disease) Hypercholesterolemia Hypertension Surgical History Hx of colonoscopy H/O right breast biopsy Family History Father Lung cancer Mother Stroke Hypertension Social History Housing: House Alcohol intake: never Patient Tobacco Use Status: Former Tobacco user Quit Date: 2009 Tobacco use type: Cigarette e-Cigarette/Vaping Use: Never Used Second Hand Smoke Exposure: No service: No Current occupational status: employed Current occupational exposures/hazards: No Sexual orientation: Straight/Heterosexual Gender identity: Female Cognitive needs: No Hearing needs: No Vision needs: Yes Questionnaire Thrive Questionnaire Date Thrive assessed: 12/30/22 SALONI-7 AMB Questionnaire SALONI-7 Date SALONI - 7 assessed: 12/30/22 Source: Developed by Drs. Alex Godinez, Mariah Chen, Jeff Junior and colleagues, with an educational cristobal from [employer]. Review of Systems Const All systems reviewed & are unremarkable except as noted in HPI and below Eyes Reports no additional complaints, Denies change in vision and Denies other visual disturbances Card Denies chest pain at rest, Denies chest pain with activity, Denies edema, Denies irregular heart rhythm, Denies claudication, Denies dyspnea, Denies dyspnea on exertion, Denies orthopnea, Denies paroxysmal nocturnal dyspnea and Denies slow heart rate Resp Denies cough, Denies dyspnea and Denies dyspnea on exertion GI Denies abdominal pain, Denies change in bowel habits, Denies excessive flatus, Denies nausea and Denies vomiting Denies urinary incontinence, Denies urinary hesitancy and Denies urinary urgency Musc Denies abnormal gait, Denies atrophy, Denies deformity and Denies limited range of motion Skin/Breast Denies bleeding lesions, Denies changing lesions and Denies rash Neuro Denies abnormal gait and Denies lack of coordination Physical exam (Primary Care) Vital Signs: Last Vital Signs BP 140/70 H 02/08/23 16:52 BMI result Body Mass Index 26.2 Tobacco/Smoking Status: Tobacco use Status Tobacco use date assessed 12/30/22 02/08/23 16:52 Patient Tobacco Use Status Former Tobacco user 02/08/23 16:52 Tobacco use type Cigarette 02/08/23 16:52 e-Cigarette/Vaping Use Never Used 02/08/23 16:52 Thrive Assessment: Date of Thrive Assessment Date Thrive assessed 12/30/22 02/08/23 16:52 Const Orientation/consciousness: patient oriented x3 HENMT Head: Yes normal to inspection, Yes normocephalic and Yes atraumatic Ears: external ears normal Eyes General: appearance normal, both eyes and all related structures Eyelids: Yes eyelids normal Conjunctivae: conjunctivae normal Neck Neck: Yes normal visual inspection and Yes supple Resp Effort & Inspection: normal respiratory effort Auscultation: clear to auscultation bilaterally Cardio Jugular venous distension: no JVD Rate: regular rate Rhythm: regular rhythm Heart sounds: S1 normal heart sound present and S2 normal heart sound present GI Inspection: Yes normal to inspection Palpation (GI): Soft to palpation and nontender Auscultation: normal bowel sounds Skin General skin exam: no rashes or lesions noted Neuro General: patient oriented x3 and no focal motor deficits Extrem General: Yes full ROM Psych Appearance: grossly normal Office Procedures Flu Questionnaire Does the patient have a severe egg allergy?: No Immunizations flu vacc [id number] 6mos up(PF) 60 mcg(15 mcgx4)/0.5 mL IM syringe Performing Provider: Willow Murphy MD [facility] Documented (not given) by: DANIEL Robins on 02/08/23 16:56 Reason Not Given: Patient Refused Assessment and Plan Assessment & Plan (1) Physical exam: Code(s): Z00.00 - Encounter for general adult medical examination without abnormal findings Plan: Repeat in a year. Orders: Orders Vitamin D 25-OH Total Today E55.9 - Vitamin D deficiency, unspecified Lipid Panel Today E78.5 - Hyperlipidemia, unspecified, I10 - Essential (primary) hypertension Comprehensive [place]. Panel Fast Today I10 - Essential (primary) hypertension XR DEXA axial skeleton Today N95.9 - Unspecified menopausal and perimenopausal disorder Influenza [id number] Immunization Today Z23 - Encounter for immunization Medications: Refilled cholecalciferol (vitamin D3) 25 mcg PO DAILY 90 days 90 caps 1RF Coding Level of Care Code Est Pt Prev Care >65y(94512) Diagnoses Physical exam Z00.00 Time Spent (min) 31
[2023-02-08 16:52] VITALS: BP 140/70; BMI 26.2
== END 2023-02-08 17:09 | disposition home or self-care (01) ==
PROVIDERS: PCP Internal Medicine; Visit Provider Internal Medicine
DX: Z00.00 Encounter for general adult medical examination without abnormal findings (principal)
CPT/HCPCS: 99397

== ENCOUNTER 2023-03-02 14:57 | Outpatient (REF) | payer MEDICARE, SELFPAY | END 2023-03-02 14:58 | disposition home or self-care (01) | LOC: HO.MAMMO 14:57 | PROVIDERS: PCP Internal Medicine; Visit Provider Internal Medicine | DX: Z13.820 Encounter for screening for osteoporosis (principal); N95.9 Unspecified menopausal and perimenopausal disorder; Z78.0 Asymptomatic menopausal state | CPT/HCPCS: 77080 ==

== ENCOUNTER 2023-05-04 13:04 | Outpatient (AMB) | payer MEDICARE, SELFPAY ==
--- NOTE | 2023-05-04 13:08 | MHC.OFFVIS ---
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 She is doing well with no concerns. Attempting to eat a healthy diet with calcium and vitamin D and stays active with exercise. Currently not sexually active w/partner.. Denies any vaginal dryness or irritation. STI testing offered; she declines. Last pap smear; history of BONIFACIO 1, HPV positive in 2022 post colpo. Last mammogram; 2022. Colonoscopy is UTD. Denies any family history of breast, ovarian or colon cancer. [facility] Medical History Pelvic pain in female BONIFACIO I (cervical intraepithelial neoplasia I) Impaired glucose tolerance Right elbow pain Vitamin D insufficiency Dyslipidemia Vitamin D deficiency GERD (gastroesophageal reflux disease) Hypercholesterolemia Hypertension Surgical History Hx of colonoscopy H/O right breast biopsy Family History Father Lung cancer Mother Stroke Hypertension Social History Housing: House Alcohol intake: never Patient Tobacco Use Status: Former Tobacco user Quit Date: 2009 Tobacco use type: Cigarette e-Cigarette/Vaping Use: Never Used Second Hand Smoke Exposure: No service: No Current occupational status: employed Current occupational exposures/hazards: No Sexual orientation: Straight/Heterosexual Gender identity: Female Cognitive needs: No Hearing needs: No Vision needs: Yes Female Reproductive History Menstrual Total pregnancies: 3 Full term: 3 Number of Living Children: 3 Date of last pap smear: 04/26/22 (neg +HPV) History of abnormal pap smear: Yes (01/17 ascus +hpv 02/16 colpo cin1) Date of Mammogram: 11/15/22 (Birad 1) Date of last Bone Density Screenin03/02/23 Review of Systems Const All systems reviewed & are unremarkable except as noted in HPI and below Reports as per HPI Eyes Reports no additional complaints ENT Reports no additional complaints Card Reports no additional complaints Resp Reports no additional complaints GI Reports as per HPI and Reports no additional complaints Reports as per HPI Musc Reports no additional complaints Skin/Breast Reports as per HPI Neuro Reports no additional complaints Psych Reports no additional complaints Endo Reports no additional complaints Kailash/Lymph Reports no additional complaints Aller/Immun Reports no additional complaints Physical Exam Vital Signs: Last Vital Signs BP 118/76 05/04/23 13:17 BMI result Body Mass Index 26.2 Const General: cooperative, healthy appearing, no acute distress, well developed and alert Orientation/consciousness: patient oriented x3 HEENT Head: Yes normal to inspection Eyes General: appearance normal, both eyes and all related structures Neck Neck: Yes normal visual inspection Thyroid: Thyroid normal Chest Other: Right nipple inversion since development (per patient) Chest palpation & inspection: normal inspection of the chest and other (no puckering, dimpling, peau de orange, retraction, discharge, masses) Breast/axilla inspection: normal inspection of the breasts Breast/axilla palpation: normal palpation of the breasts Resp Effort & Inspection: normal respiratory effort GI Inspection: Yes normal to inspection Palpation (GI): Soft to palpation Rectal Exam - Female: deferred General: Yes bladder normal to palpation External Female Exam: normal external appearance and normal appearance of the urethra Speculum Exam - Vagina: normal appearance of the vagina, normal palpation, normal vaginal discharge and vagina atrophic Speculum Exam - Cervix: normal appearance of the cervix, normal palpation and Other cervical findings present (bled slightly with pap) Bimanual exam- vagina & uterus: normal bimanual exam, normal palpation, uterine size normal, bladder normal to palpation, normal palpation and non-tender Bimanual Exam- Adnexa, other: no masses Skin General skin exam: no rashes or lesions noted Rashes: no rashes Neuro General: patient oriented x3 Cognition (Neuro): normal cognition Extrem General: Yes normal to inspection Psych Attitude: cooperative Thought process: Normal thought process present Assessment & Plan Assessment & Plan (1) History of abnormal cervical Pap smear: Code(s): Z87.42 - Personal history of other diseases of the female genital tract (2) Encounter for well woman exam with routine gynecological exam: Code(s): Z01.419 - Encounter for gynecological examination (general) (routine) without abnormal findings Plan Discussed: Current recommendations for pap smears per ASCCP guidelines. Breast awareness, periodic self breast exams and yearly mammogram. Maintain a healthy lifestyle, well balanced diet including Calcium 1,200 mg and Vitamin D 600 IU daily, and routine exercise. Contact the office with any postmenopausal bleeding. Patient verbalizes understanding and agrees to the plan of care. She was given opportunity to ask questions and all questions were answered to the best of my ability. 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 This note is constructed using voice recognition software. While every effort has been made to ensure accuracy, it security architect errors may have been included. Coding Level of Care Code Est Pt Prev Care >65y(12859) Diagnoses History of abnormal cervical Pap smear Z87.42 Encounter for well woman exam with routine gynecological exam Z01.419
[2023-05-04 13:17] VITALS: BP 118/76; BMI 26.2
== END 2023-05-04 13:41 | disposition home or self-care (01) ==
LOC: HO.HWS 13:04
PROVIDERS: PCP Internal Medicine; Visit Provider Advanced Practice Midwife
DX: Z01.419 Encounter for gynecological examination (general) (routine) without abnormal findings (principal); Z87.42 Personal history of other diseases of the female genital tract
CPT/HCPCS: G0101; Q0091

== ENCOUNTER 2023-05-04 13:04 | Outpatient (REF) | payer MEDICARE, SELFPAY ==
[2023-05-11 05:09] LABS: HPV 16 RNA NOT DETECTED (NOT DETECTED); HPV mRNA E6/E7 rflx Detected (Not Detected)
== END 2023-05-04 13:05 | disposition home or self-care (01) ==
LOC: HO.LNP 13:04
PROVIDERS: PCP Internal Medicine; Visit Provider Advanced Practice Midwife
DX: Z01.419 Encounter for gynecological examination (general) (routine) without abnormal findings (principal); Z11.51 Encounter for screening for human papillomavirus (HPV); Z87.42 Personal history of other diseases of the female genital tract
CPT/HCPCS: 87624; 87625; 88142; G0101

== ENCOUNTER 2023-05-20 08:30 | Outpatient (REF) | payer MEDICARE, SELFPAY ==
[2023-05-20 09:41] LABS: Alanine Aminotransferase 20 U/L (0-31); Albumin Level 4.1 g/dL (3.5-5.0); Alkaline Phosphatase 57 U/L (39-117); Anion Gap 11 (12-20); Aspartate Amino Transferase 21 U/L (5-31); Bilirubin Total 0.8 mg/dL (0.0-1.0); Blood Urea Nitrogen 23 mg/dL (9-16); Calcium 9.9 mg/dL (8.4-10.2); Carbon Dioxide 31 mmol/L (22-29); Chloride 105 mmol/L (96-108); Cholesterol 241 mg/dL (<200); Estimated Glomerular Filt Rate 55; Glucose Fasting 127 mg/dL (60-99); HDL Cholesterol 58 mg/dL (>40); LDL Cholesterol Calculated 168 mg/dL (<100); Potassium 4.2 mmol/L (3.3-5.1); Sodium 143 mmol/L (135-145); Total Protein 7.3 g/dL (6.5-8.0); Triglycerides 76 mg/dL (<150)
[2023-05-20 10:02] LABS: Vitamin D 25-OH Total 35.9 ng/mL (>30)
== END 2023-05-20 08:31 | disposition home or self-care (01) ==
LOC: HO.LAB 08:30
PROVIDERS: PCP Internal Medicine; Visit Provider Internal Medicine
DX: E55.9 Vitamin D deficiency, unspecified (principal); E78.5 Hyperlipidemia, unspecified; I10 Essential (primary) hypertension
CPT/HCPCS: 36415; 80053; 80061; 82306

== ENCOUNTER 2023-05-29 16:53 | Outpatient (AMB) | payer MEDICARE, SELFPAY ==
[2023-05-29 16:58] VITALS: BP 160/74; BMI 27.1
--- NOTE | 2023-05-29 16:58 | A.OFFPC_ITS ---
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 Accompanied by: Self / Same As Patient Allergies bee pollen [BEE STINGS] Allergy (Intermediate, Verified 05/29/23 17:12) Swelling Medication List - Last Reconciled 05/29/23 by Willow Murphy MD cholecalciferol (vitamin D3) 25 mcg PO DAILY 90 days epinephrine (EpiPen 2-Mirza) 0.3 mg (0.3 mL) IM Q10M PRN 30 days hydrochlorothiazide 12.5 mg PO DAILY 90 days Tobacco use date assessed: 05/29/23 Fall risk assessment: No Falls in past year Last assessed Fall Risk: 05/29/23 Dental Screening Dental Screen Date: 05/29/23 Did you have a dental visit in the last 12 months?: Yes Did you have a dental problem in the last 6 months where you did not have access to dental care?: No Was dental information given to patient?: Patient has dentist HPI HPI Comments History of Present Illness Details This is a 68-year-old female with hypertension, pure hypercholesterol emia, impaired glucose tolerance and low vitamin-D that comes today for follow- up on her conditions. Blood pressure elevated and will be recheck in 3 weeks by nurse navigator. Cholesterol also elevated and I will start her on low-dose statin. Has elevated blood glucose but denies any polyuria, polydipsia or unintentional weight loss. She will start following a low-carbohydrate diet and fasting labs will be repeated in 4 months. On vitamin-D supplements for her low vitamin-D. No chest pain or shortness a breath. [facility] Medical History (Updated 05/29/23 @ 17:18 by Willow Murphy MD) Pelvic pain in female BONIFACIO I (cervical intraepithelial neoplasia I) Impaired glucose tolerance Right elbow pain Vitamin D insufficiency Dyslipidemia Vitamin D deficiency GERD (gastroesophageal reflux disease) Hypercholesterolemia Hypertension Surgical History Hx of colonoscopy H/O right breast biopsy Family History Father Lung cancer Mother Stroke Hypertension Social History Housing: House Alcohol intake: never Patient Tobacco Use Status: Former Tobacco user Quit Date: 2009 Tobacco use type: Cigarette e-Cigarette/Vaping Use: Never Used Second Hand Smoke Exposure: No service: No Current occupational status: employed Current occupational exposures/hazards: No Sexual orientation: Straight/Heterosexual Gender identity: Female Cognitive needs: No Hearing needs: No Vision needs: Yes Questionnaire PHQ-9 Over the last 2 weeks, how often have you been bothered by any of the following problems? 1. Little interest or pleasure in doing things: not at all 2. Feeling down, depressed, or hopeless: not at all 3. Trouble falling or staying asleep, or sleeping too much: not at all 4. Feeling tired or having little energy: not at all 5. Poor appetite or overeating: not at all 6. Feeling bad about yourself - or that you are a failure or have let yourself or your family down: not at all 7. Trouble concentrating on things, such as reading the newspaper or watching television: not at all 8. Moving or speaking so slowly that other people could have noticed. Or the opposite - being so fidgety or restless that you have been moving around a lot more than usual: not at all 9. Thoughts that you would be better off or of hurting yourself in some way: not at all Total score: 0 Depression Screening Interpretation: Negative Depression Screening Done: Yes 24784 - PHQ-9 Billing: Yes Source: Developed by Drs. Alex Godinez, Mariah Chen, Jeff Junior and colleagues, with an educational cristobal from [employer]. Thrive Questionnaire Date Thrive assessed: 05/29/23 I am a: Patient What is your living situation today?: I have a steady place to live Within the past 12 months, did the food you bought not last and you didn't have the money to get more?: Never true Within the past 12 months, did you worry whether your food would run out before you got money to buy more?: Never true Do you have trouble paying for medicines?: No Do you have trouble getting transportation to medical appointments?: No Do you have trouble paying your heating and electricity bill?: No Do you have trouble taking care of your child, family member or friend?: No Do you have trouble with day-to-day activities such as bathing, preparing meals, shopping, managing finances, etc.?: No Are you currently unemployed and looking for a job?: No Are you interested in more education?: No Please select the resources that you would like help with: None Currently or been in a relationship where the following occur: no concerns reported THRIVE Score: 0 AUDIT C Alcohol Use Questionnaire (AUDIT-C) 1. How often do you have a drink containing alcohol?: Never Total Score: 0 Score Reviewed/Action Taken: No SALONI-7 AMB Questionnaire SALONI-7 Date SALONI - 7 assessed: 05/29/23 Feeling nervous, anxious, or on edge: 0 = Not at all Not being able to stop or control worryin = Not at all Worrying too much about different things: 0 = Not at all Trouble relaxin = Not at all Being so restless that it is hard to sit still: 0 = Not at all Becoming easily annoyed or irritable: 0 = Not at all Feeling afraid as if something awful might happen: 0 = Not at all Total SALONI-7 score (0-4 normal; 5-9 mild; 10-14 moderate; 15-21 severe): 0 Source: Developed by Drs. Alex Godinez, Mariah Chen, Jeff Junior and colleagues, with an educational cristobal from [employer]. SALONI-7 Assessment Billing SALONI-7 Assessment Tool: SALONI-7 Assessment 73023 Review of Systems Const All systems reviewed & are unremarkable except as noted in HPI and below Eyes Reports no additional complaints, Denies change in vision and Denies other visual disturbances Card Denies chest pain at rest, Denies chest pain with activity, Denies edema, Denies irregular heart rhythm, Denies claudication, Denies dyspnea, Denies dyspnea on exertion, Denies orthopnea, Denies paroxysmal nocturnal dyspnea and Denies slow heart rate Resp Denies cough, Denies dyspnea and Denies dyspnea on exertion GI Denies abdominal pain, Denies change in bowel habits, Denies excessive flatus, Denies nausea and Denies vomiting Denies urinary incontinence, Denies urinary hesitancy and Denies urinary urgency Musc Denies abnormal gait, Denies atrophy, Denies deformity and Denies limited range of motion Skin/Breast Denies bleeding lesions, Denies changing lesions and Denies rash Neuro Denies abnormal gait and Denies lack of coordination Physical exam (Primary Care) Vital Signs: Last Vital Signs BP 160/74 H 05/29/23 16:58 BMI result Body Mass Index 27.1 Tobacco/Smoking Status: Tobacco use Status Tobacco use date assessed 05/29/23 05/29/23 17:03 Patient Tobacco Use Status Former Tobacco user 05/29/23 17:03 Tobacco use type Cigarette 05/29/23 17:03 e-Cigarette/Vaping Use Never Used 05/29/23 17:03 PHQ-9: PHQ-9 Score PHQ-9: Total score 0 05/29/23 17:14 Depression Screening Interpretation: Negative Thrive Assessment: Date of Thrive Assessment Date Thrive assessed 05/29/23 05/29/23 17:03 Currently or been in a relationship where the following occur: no concerns reported Cardio Jugular venous distension: no JVD Rate: regular rate Rhythm: regular rhythm Heart sounds: S1 normal heart sound present and S2 normal heart sound present Extrem General: Yes full ROM Assessment and Plan Assessment & Plan (1) Benign essential hypertension: Code(s): I10 - Essential (primary) hypertension Plan: Continue hydrochlorothiazide. Blood pressure goal is equal or less than 130/80. Recheck blood pressure with nurse navigator in 3 weeks. (2) Pure hypercholesterolemia: Code(s): E78.00 - Pure hypercholesterolemia, unspecified Plan: Start statins. Repeat lipid panel in 4 months. Start low-cholesterol diet. (3) Hypovitaminosis D: Code(s): E55.9 - Vitamin D deficiency, unspecified Plan: Continue vitamin-D supplements. (4) Impaired glucose tolerance: Code(s): R73.02 - Impaired glucose tolerance (oral) Plan: Start low-carbohydrate diet. Repeat fasting blood glucose in 4 months. Orders: Orders Lipid Panel 4 Months E78.5 - Hyperlipidemia, unspecified Comprehensive [place]. Panel Fast 4 Months E78.00 - Pure hypercholesterolemia, unspecified Medications: New rosuvastatin 10 mg PO BEDTIME 90 tabs 1RF 90 days E78.00 - Pure hypercholesterolemia, unspecified Coding Level of Care Code Est Pt Level 4 (55372) Diagnoses Benign essential hypertension I10 Pure hypercholesterolemia E78.00 Hypovitaminosis D E55.9 Impaired glucose tolerance R73.02 Additional Codes SALONI-7 Assessment Billing - SALONI-7 Assessment Tool: SALONI-7 Assessment [id number] ([id number]) Time Spent (min) 23
[2023-05-29 17:44] VITALS: BP 160/78
== END 2023-05-29 17:24 | disposition home or self-care (01) ==
PROVIDERS: PCP Internal Medicine; Visit Provider Internal Medicine
DX: I10 Essential (primary) hypertension (principal); E78.00 Pure hypercholesterolemia, unspecified; E55.9 Vitamin D deficiency, unspecified; R73.02 Impaired glucose tolerance (oral)
CPT/HCPCS: 99214

== ENCOUNTER 2023-05-31 21:00 | Emergency (ER) | payer MEDICARE, SELFPAY ==
--- NOTE | 2023-05-31 | ECG_ITS ---
Test Reason : CHEST PAIN Blood Pressure : / mmHG Vent. Rate : 067 BPM Atrial Rate : 067 BPM P-R Int : 172 ms QRS Dur : 098 ms QT Int : 424 ms P-R-T Axes : 071 039 042 degrees QTc Int : 448 ms Normal sinus rhythm Low voltage QRS Borderline ECG When compared with ECG of 29-DEC-2022 17:50, No significant change was found Referred By: Generic ED Physician Electronically Signed By:JEFF KIRK MD
--- NOTE | ~2023-05-31 | CT_ITS ---
EXAMINATION: CT HEAD WITHOUT CONTRAST CLINICAL INFORMATION: Headache. Elevated blood pressure. COMPARISON: Brain MRI performed 12/20/2018. TECHNIQUE: Contiguous axial imaging was performed from the skull base to vertex without intravenous administration of contrast. This CT examination was performed using dose optimization techniques as appropriate, variously including the following: *Automated exposure control *Adjustment of mA and/or kV according to patient size (this includes techniques or standardized protocols for targeted exams where dose is matched to indication/reason for exam; i.e. extremities or head) *Use of iterative reconstruction technique DLP: 604 mGy-cm FINDINGS: The lateral, third and fourth ventricles are normally outlined. The cortical sulci and basal cisterns are normally outlined as well. There is no acute territorial defect, hemorrhage or midline shift. The extra-axial spaces are unremarkable. Calvarium: Intact. Maxillofacial sinuses and mastoids: Clear as visualized. CT/CT head/brain wo IV con IMPRESSION: No acute intracranial pathology.
[2023-05-31 21:15] VITALS: BP 173/79; PULSE 79; RESP 19; TEMP 36.3; O2SAT 97; BMI 23.5
[2023-05-31 22:04] LABS: MANUAL DIFF FLAG NO
[2023-05-31 22:07] LABS: Basophils Percent Auto 0.5 % (0-2); Eosinophils Absolute Auto 0.2 X10*3/uL (0.0-0.4); Hematocrit 34.9 % (37.0-47.0); Imm Gran Abs Auto 0.01 X10*3/uL (0.00-0.03); Imm Gran Pct Auto 0.2 % (0.0-0.4); Lymphocytes Absolute Auto 2.1 X10*3/uL (1.2-4.9); Lymphocytes Percent Auto 36.1 % (20-40); Mean Corpuscular HGB Conc 34.4 g/dl (31.0-35.0); Mean Corpuscular Hemoglobin 30.4 pg (27.0-33.0); Mean Corpuscular Volume 88.4 fL (80.0-98.0); Mean Platelet Volume 11.2 fL (9.4-12.3); Monocytes Absolute Auto 0.4 X10*3/uL (0.1-1.2); Monocytes Percent Auto 7.5 % (2-11); Neutrophils Absolute Auto 2.9 x10*3/uL (2.0-8.3); Neutrophils Percent Auto 51.7 % (45-73); Platelet Count 190 X10*3/uL (160-400); Red Blood Count 3.95 X10*6/uL (4.20-5.50); Red Cell Distribution Width 13.2 % (11.0-16.0); White Blood Count 5.7 X10*3/uL (4.8-10.8)
[2023-05-31 22:25] LABS: Alanine Aminotransferase 27 U/L (0-31); Albumin Level 3.9 g/dL (3.5-5.0); Alkaline Phosphatase 52 U/L (39-117); Anion Gap 11 (12-20); Aspartate Amino Transferase 24 U/L (5-31); Bilirubin Direct 0.1 mg/dL (0.0-0.5); Bilirubin Total 0.3 mg/dL (0.0-1.0); Blood Urea Nitrogen 21 mg/dL (9-16); Calcium 9.5 mg/dL (8.4-10.2); Carbon Dioxide 26 mmol/L (22-29); Chloride 108 mmol/L (96-108); Creatinine Clr Calc Pharmacy 64.8; Estimated Glomerular Filt Rate > 60; Glucose Random 115 mg/dL (60-115); Potassium 3.5 mmol/L (3.3-5.1); Sodium 141 mmol/L (135-145); Total Protein 6.7 g/dL (6.5-8.0)
[2023-05-31 22:32] LABS: Troponin-I High Sensitivity < 2.7 ng/L (<3.5-17.0)
--- NOTE | 2023-06-01 00:26 | ED.GENADULT ---
HPI - General Adult General Chief complaint: General Medical Stated complaint: high BP, headache, heart palpitations Time Seen by Provider: 06/01/23 00:12 Source: patient and family (Daughter) Mode of arrival: ambulatory Limitations: no limitations History of Present Illness HPI narrative: 68-year-old female history essential hypertension, patient was started on HCTZ 12.5 mg in the ED about 5 months ago, patient was seen by her PCP found to have high blood pressure in her office and patient has a follow-up appointment with PCP in 3 weeks. Patient been having intermittent headache and intermittent feeling of palpitation for the past few weeks patient checked her blood pressure today found to be 170 systolic at home patient took extra 12.5 mg of HCTZ with no relief of her symptoms, patient in the ED has no headache or chest pain or shortness of breath, no vomiting, no nausea. Related Data Previous Rx's Medication Instructions Recorded epinephrine 0.3 mg/0.3 mL 0.3 mg (0.3 mL) IM Q10M PRN 08/25/20 injection, auto-injector (EpiPen anaphylaxis 30 days #1 ea 2-Mirza) cholecalciferol (vitamin D3) 25 25 mcg PO DAILY 90 days #90 caps 05/14/23 mcg (1,000 unit) capsule hydrochlorothiazide 12.5 mg capsule 12.5 mg PO DAILY 90 days #90 caps 05/14/23 simvastatin 10 mg tablet 10 mg PO BEDTIME 90 days #90 tabs 05/31/23 Allergies Allergy/AdvReac Type Severity Reaction Status Date / Time bee pollen [BEE STINGS] Allergy Intermediate Swelling Verified 05/31/23 21:15 Review of Systems Review of Systems: All other systems are reviewed and are negative Constitutional: Reports as per HPI and Reports no additional constitutional complaints Eyes: Reports as per HPI and Reports no additional eye complaints Reports system reviewed and no additional complaints, except as documented Cardiovascular: Reports as per HPI and Reports no additional cardiovascular complaints Respiratory: Reports as per HPI and Reports no additional respiratory complaints Gastrointestinal: Reports as per HPI and Reports no additional gastrointestinal complaints Genitourinary: Reports no additional female genitourinary complaints Musculoskeletal: Reports no additional musculoskeletal complaints Skin/Breast: Reports system reviewed and no additional complaints, except as docu Psychiatric: Reports no additional psychiatric complaints Endocrine: Reports no additional endocrine complaints Hematologic/Lymphatic: Reports no additional hematologic/lymphatic complaints Allergic/Immunologic: Reports no additional allergic/immunologic complaints Reports system reviewed and no additional complaints, except as documented and Reports Abnormal speech present [facility] Past Medical History Medical History Pelvic pain in female BONIFACIO I (cervical intraepithelial neoplasia I) Impaired glucose tolerance Right elbow pain Vitamin D insufficiency Dyslipidemia Vitamin D deficiency GERD (gastroesophageal reflux disease) Hypercholesterolemia Hypertension Surgical History Hx of colonoscopy H/O right breast biopsy Family History Family History Father Lung cancer Mother Stroke Hypertension Social History Social History Housing: House Alcohol intake: never Patient Tobacco Use Status: Former Tobacco user Quit Date: 2009 Tobacco use type: Cigarette Smoked in Last 30 Days: No e-Cigarette/Vaping Use: Never Used Second Hand Smoke Exposure: No Use of substances other than those prescribed or required for medical reasons: No Advance Directives: No Advance Directives Information Provided: Yes service: No Current occupational status: employed Current occupational exposures/hazards: No Sexual orientation: Straight/Heterosexual Gender identity: Female Cognitive needs: No Hearing needs: No Vision needs: Yes Physical Exam ED Vital Signs: Vital Signs - 24 hr 05/31/23 21:15 06/01/23 00:39 Temperature 97.3 F 98.2 F Pulse Rate 79 64 Respiratory Rate 19 16 Blood Pressure 173/79 H 168/74 H Pulse Oximetry 97 98 Oxygen Delivery Method Room Air Room Air BMI result Body Mass Index 23.5 Vital signs have been reviewed and appear to be correct. Blood pressure elevated. Heart rate normal. Respiratory rate normal. Temperature normal. Oxygen saturation normal. Appearance: Alert. Oriented X3. No acute distress. Head: Normal external exam. Normocephalic. Atraumatic. No Nettles signs noted. No raccoon eyes noted Eyes: PERRLA. EOMI. Conjunctiva and sclera normal. Eyelids normal. ENT: TM's Normal. Pharynx normal. Uvula midline. Moist mucous membranes. No trismus noted. No drooling noted. No muffled voice noted. Neck: Normal inspection. Neck supple. FROM. No adenopathy. Thyroid Normal. No meningeal signs. No neck mass noted. CVS: Normal heart rate and rhythm. Heart sound normal. No murmurs noted. Pulses normal throughout. Respiratory: No respiratory distress. Painless inspiration. Breath sounds normal. No wheezes/rales/rhonchi noted. Chest nontender. No accessory muscle usage noted or decreased air movement noted. Abdomen: Soft and nontender. Bowel sounds normal in all 4 quadrants. No distention noted. No organomegaly noted. No visible injury noted. Back: No CVA tenderness. Full range of motion noted. Skin: Skin warm and dry. Normal skin color. Normal skin turgor. No rashes/lesions/lacerations noted. Extremities: No lower extremity edema. Extremities exhibit normal range of motion. Extremities nontender. Neuro: Oriented X 3. Cranial nerve exam: II-XII are grossly intact No motor deficit. No sensory deficit. Reflexes normal. Course Reevaluation(s) Reevaluation #1: The plan was discussed with the patient and her daughter is to increase hydrochlorothiazide to 25 mg daily instead of 12.5 and keep the appointment with her doctor in 3 months. Normal neuro exam, head CT is unremarkable, no sign of emergent or urgent hypertension therefore there is no need for emergent intervention to control blood pressure. Patient was given Dr. Garcia's office information to set up an outpatient appointment for follow-up on patient palpitation and hypertension management. Time: 01:45 Medical Decision Making Differential Diagnosis Differential Diagnoses: The differential diagnosis associated with the presentation includes (Hypertensive urgency, intracranial bleed, electrolyte derangement, severe anemia, arrhythmia.) Admission/Observation Consideration of admission/observation: Escalation of care including admission/observation considered Lab Data MDM Lab Attestation statement: I reviewed the patient's lab results. 05/31/23 21:59 05/31/23 21:59 Labs: Lab Results 05/31/23 Range/Units 21:59 WBC 5.7 (4.8-10.8) X10*3/uL RBC 3.95 L (4.20-5.50) X10*6/uL Hgb 12.0 (12.0-16.0) g/dl Hct 34.9 L (37.0-47.0) % MCV 88.4 (80.0-98.0) fL MCH 30.4 (27.0-33.0) pg MCHC 34.4 (31.0-35.0) g/dl RDW 13.2 (11.0-16.0) % Plt Count 190 (160-400) X10*3/uL MPV 11.2 (9.4-12.3) fL Immature Gran % (Auto) 0.2 (0.0-0.4) % Neut % (Auto) 51.7 (45-73) % Lymph % (Auto) 36.1 (20-40) % Ada % (Auto) 7.5 (2-11) % Eos % (Auto) 4.0 (0-4) % Baso % (Auto) 0.5 (0-2) % Lymph # (Auto) 2.1 (1.2-4.9) X10*3/uL Ada # (Auto) 0.4 (0.1-1.2) X10*3/uL Eos # (Auto) 0.2 (0.0-0.4) X10*3/uL Baso # (Auto) 0.0 (0.0-0.2) X10*3/uL Abs Immat Gran (auto) 0.01 (0.00-0.03) X10*3/uL Absolute Neuts (auto) 2.9 (2.0-8.3) x10*3/uL Absolute Nucleated RBC 0.000 (0.0-0.012) X10*3/uL Nucleated RBC % (auto) 0.0 (0.0-0.2) /100WBC Sodium 141 (135-145) mmol/L Potassium 3.5 (3.3-5.1) mmol/L Chloride 108 (96-108) mmol/L Carbon Dioxide 26 (22-29) mmol/L Anion Gap 11 L (12-20) BUN 21 H (9-16) mg/dL Creatinine 0.83 (0.5-1.4) mg/dL Estim Creat Clear Calc 64.8 Estimated GFR > 60 Random Glucose 115 (60-115) mg/dL Calcium 9.5 (8.4-10.2) mg/dL Total Bilirubin 0.3 (0.0-1.0) mg/dL Direct Bilirubin 0.1 (0.0-0.5) mg/dL AST 24 (5-31) U/L ALT 27 (0-31) U/L Alkaline Phosphatase 52 (39-117) U/L Troponin I High Sens < 2.7 (<3.5-17.0) ng/L Total Protein 6.7 (6.5-8.0) g/dL Albumin 3.9 (3.5-5.0) g/dL Independent Interpretation I performed an independent interpretation of an: EKG (Normal sinus rhythm at 67 beats per minute, normal axis deviation, normal intervals, no significant change from previous EKG.) and CT Scan (Head: No acute intracranial pathology.) Radiology Impression Discussion of test interpretation with radiology: I have reviewed the radiologist's reading. Chronic Conditions Patient?s care impacted by: Hypertension Discharge Plan Discharge Clinical Impression: Hypertension Patient Disposition: Home, Self-Care Instructions: Hypertension (ED) Additional Instructions: Increased hydrochlorothiazide dose from 12.5 mg to 25 mg day V and keep your appointment with your PCP in 3 weeks. Keep monitoring your blood pressure you should see improvement BP numbers in 2-3 days. Seek immediate medical attention for CP, palpitation, severe headache, or vomiting. Prescriptions: No Action hydrochlorothiazide 12.5 mg capsule 12.5 mg PO DAILY 90 Days Qty: 90 1RF cholecalciferol (vitamin D3) 25 mcg (1,000 unit) capsule 25 mcg PO DAILY 90 Days Qty: 90 1RF simvastatin 10 mg tablet 10 mg PO BEDTIME 90 Days Qty: 90 1RF epinephrine [EpiPen 2-Mirza] 0.3 mg/0.3 mL auto-injector 0.3 mg IM Q10M PRN (Reason: anaphylaxis) 30 Days Qty: 1 1RF Rx Instructions: for 2 doses Referrals: Willow Hill MD [Primary Care Provider] - Red Garcia MD [Physician] -
[2023-06-01 00:39] VITALS: BP 168/74; PULSE 64; RESP 16; TEMP 36.8; O2SAT 98
== END 2023-06-01 01:51 | disposition home or self-care (01) ==
PROVIDERS: Emergency Provider Emergency Medicine; PCP Internal Medicine
DX: R51.9 Headache, unspecified (principal); I10 Essential (primary) hypertension; R00.2 Palpitations; Z87.891 Personal history of nicotine dependence; Z79.899 Other long term (current) drug therapy
CPT/HCPCS: 36415; 70450; 80048; 80076; 84484; 85025; 93005; 99284

== ENCOUNTER → 2023-05-31 21:50 | Outpatient (BNV) | payer MEDICARE, SELFPAY | PROVIDERS: Emergency Provider Emergency Medicine; PCP Internal Medicine; Visit Provider Internal Medicine Cardiovascular Disease | DX: R07.9 Chest pain, unspecified (principal) | CPT/HCPCS: 93010 ==

== ENCOUNTER 2023-06-21 07:25 | Outpatient (REF) | payer MEDICARE, SELFPAY | END 2023-06-21 07:26 | disposition home or self-care (01) | LOC: HO.LNP 07:25 | PROVIDERS: PCP Internal Medicine; Visit Provider Obstetrics & Gynecology | DX: A63.0 Anogenital (venereal) warts (principal) | CPT/HCPCS: 57454; 88300; 88305; 88342; 88360 ==

== ENCOUNTER 2023-06-21 07:25 | Outpatient (AMB) | payer MEDICARE, SELFPAY ==
[2023-06-21 07:27] VITALS: BP 120/78; BMI 23.5
--- NOTE | 2023-06-21 07:27 | A.OFFVIS_ITS ---
Vital Signs 06/21/23 07:27 Height 5 ft 7 in Weight 149 lb 14.629 oz BMI 23.5 BP 120/78 Intake Visit Reasons: Colposcopy Pharmacy Resource Tech Required: No Information Interpreted: non-clinical & clinical Quality Control Auditor: Quality Control Auditor Present (Dejah Noyola DANIEL) Accompanied by: Self / Same As Patient Allergies bee pollen [BEE STINGS] Allergy (Intermediate, Verified 06/21/23 07:33) Swelling Post menopausal: Yes HPI Comments Details: Presenting referred from [place] [facility] regarding normal Pap/HPV E6/E7 positive, HPV 16/18/45 negative, last year Pap smear was negative/HPV E6/E7 was positive, HPV 16/18/45 negative PFSH Medical History Pelvic pain in female BONIFACIO I (cervical intraepithelial neoplasia I) Impaired glucose tolerance Right elbow pain Vitamin D insufficiency Dyslipidemia Vitamin D deficiency GERD (gastroesophageal reflux disease) Hypercholesterolemia Hypertension Surgical History Hx of colonoscopy H/O right breast biopsy Family History Father Lung cancer Mother Stroke Hypertension Social History Housing: House Alcohol intake: never Patient Tobacco Use Status: Former Tobacco user Quit Date: 2009 Tobacco use type: Cigarette e-Cigarette/Vaping Use: Never Used Second Hand Smoke Exposure: No service: No Current occupational status: employed Current occupational exposures/hazards: No Sexual orientation: Straight/Heterosexual Gender identity: Female Cognitive needs: No Hearing needs: No Vision needs: Yes Review of Systems Const All systems reviewed & are unremarkable except as noted in HPI and below Reports as per HPI and Reports no additional complaints GI Reports no additional complaints Reports no additional complaints Physical Exam Vital Signs: Last Vital Signs BP 120/78 06/21/23 07:27 BMI result Body Mass Index 23.5 Office Procedures Colposcopy Before the procedure was started discussed with the patient the procedure, alternatives & all the risks associated with the procedure (bleeding, infection, injury to vagina, bladder, vessels, possible need for transfusion with all its risks) then patient signed the consent UPT done in the office & negative Pap smear = negative Pap/HPV E6/E7 positive, HPV 16/18/45 negative Speculum inserted, acetic acid used Colposcopy done Transformation zone seen, acetowhite lesions identified at 9+11+12+1+3+5 o?clock, cervical biopsies taken from 9+11+12+1+3+5 o?clock, ECC done afterwards. Vaginoscopy of the upper vagina showed no evidence of any aceto-white lesions Monsel solution used for hemostasis. The patient tolerated well . At the end the patient was instructed to call if temp>100.4, abdominal pain, n/v, bleeding; The patient was given the following instructions: nothing per vagina, no intercourse or bath tub use. All questions answered the patient verbalized understanding. Instructed the patient to make an appointment in 2 weeks for follow-up This note was generated with a voice recognition program. Some errors may have been overlooked during the review of this note. Sometimes these errors may affect the content or meaning of a given sentence. 27084-[id number] of cervix including upper vagina with biopsy and ECC Procedure code (CPT) selection complete Assessment & Plan Assessment & Plan (1) HPV in female: Code(s): B97.7 - Papillomavirus as the cause of diseases classified elsewhere Category: Medical Plan: Discussed with the patient the result of her normal Pap/HPV positive, its significance, risk of progression, persistence, and regression. the false positive/negative rate of a Pap smear as a screening test in detecting cervical cancer and the indication for a diagnostic test -colposcopy, biopsy, endocervical curettage. Colposcopy done, see procedure note. The patient verbalized understanding and agreed with the plan, all questions answered. Orders: Orders AMB Colposcopy Today B97.7 - Papillomavirus as the cause of diseases classified elsewhere Coding Level of Care Code Procedure Only Diagnoses HPV in female B97.7 CPT Codes Colposcopy - CPT: 42107-[id number] of cervix including upper vagina with biopsy and ECC ([id number])
== END 2023-06-21 08:30 | disposition home or self-care (01) ==
LOC: HO.HWS 07:25
PROVIDERS: PCP Internal Medicine; Visit Provider Obstetrics & Gynecology
DX: R87.810 Cervical high risk human papillomavirus (HPV) DNA test positive (principal)
CPT/HCPCS: 57454

== ENCOUNTER 2023-07-06 07:54 | Outpatient (REF) | payer MEDICARE, SELFPAY | END 2023-07-06 07:55 | disposition home or self-care (01) | LOC: HO.LNP 07:54 | PROVIDERS: PCP Internal Medicine; Visit Provider Obstetrics & Gynecology | DX: A63.0 Anogenital (venereal) warts (principal); B97.7 Papillomavirus as the cause of diseases classified elsewhere | CPT/HCPCS: 88305; 99212 ==

== ENCOUNTER 2023-07-06 07:54 | Outpatient (AMB) | payer MEDICARE, SELFPAY ==
--- NOTE | 2023-07-06 07:55 | MHC.OFFVIS ---
Vital Signs 07/06/23 08:00 BP 110/66 Intake Visit Reasons: Colpo results . Repeat ecc per Dr. Ybarra Allergies bee pollen [BEE STINGS] Allergy (Intermediate, Verified 06/21/23 07:33) Swelling HPI Comments Details: Presenting post colpo for follow-up. The patient is doing well with no complaints. The pathology showed the following: A. Endocervix, curettage: No tissue present for evaluation. B. Cervix, 1:00, biopsy: Squamous mucosa with atrophic and reactive changes; negative for dysplasia; no endocervical glandular component present. C. Cervix, 3:00, biopsy: Squamous mucosa with atrophic and reactive changes; negative for dysplasia; no endocervical glandular component present. D. Cervix, 5:00, biopsy: Squamous mucosa with atrophic and reactive changes; negative for dysplasia; no endocervical glandular component present. E. Cervix, 9:00, biopsy: Atrophic squamous and endocervical glandular mucosa with inflammation; negative for dysplasia. F. Cervix, 11:00, biopsy: Squamous mucosa with atrophic and reactive changes and detached endocervical glandular epithelium; negative for dysplasia. G. Cervix, 12:00, biopsy: Squamous mucosa with atrophic and reactive changes, and detached endocervical glandular epithelium; negative for dysplasia [facility] Medical History Pelvic pain in female BONIFACIO I (cervical intraepithelial neoplasia I) Impaired glucose tolerance Right elbow pain Vitamin D insufficiency Dyslipidemia Vitamin D deficiency GERD (gastroesophageal reflux disease) Hypercholesterolemia Hypertension Surgical History Hx of colonoscopy H/O right breast biopsy Family History Father Lung cancer Mother Stroke Hypertension Social History Housing: House Alcohol intake: never Patient Tobacco Use Status: Former Tobacco user Quit Date: 2009 Tobacco use type: Cigarette e-Cigarette/Vaping Use: Never Used Second Hand Smoke Exposure: No service: No Current occupational status: employed Current occupational exposures/hazards: No Sexual orientation: Straight/Heterosexual Gender identity: Female Cognitive needs: No Hearing needs: No Vision needs: Yes Review of Systems Const All systems reviewed & are unremarkable except as noted in HPI and below Reports as per HPI and Reports no additional complaints GI Reports no additional complaints Reports no additional complaints Assessment & Plan Assessment & Plan (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 Before the procedure was started discussed with the patient the procedure, alternatives & all the risks associated with the procedure (bleeding, infection, injury to vagina, bladder, vessels, possible need for transfusion with all its risks) then patient signed the consent ECC done. The patient tolerated well . At the end the patient was instructed to call if temp>100.4, abdominal pain, n/v, bleeding; The patient was given the following instructions: nothing per vagina, no intercourse or bath tub use. All questions answered the patient verbalized understanding. Instructed the patient to make an appointment in 2 weeks for follow-up This note was generated with a voice recognition program. Some errors may have been overlooked during the review of this note. Sometimes these errors may affect the content or meaning of a given sentence. Coding Level of Care Code Est Pt Level 3 (25780) Diagnoses HPV in female B97.7
[2023-07-06 08:00] VITALS: BP 110/66
== END 2023-07-06 08:21 | disposition home or self-care (01) ==
LOC: HO.HWS 07:54
PROVIDERS: PCP Internal Medicine; Visit Provider Obstetrics & Gynecology
DX: R87.810 Cervical high risk human papillomavirus (HPV) DNA test positive (principal)
CPT/HCPCS: 99213

== ENCOUNTER 2023-07-13 10:28 | Outpatient (AMB) | payer MEDICARE, SELFPAY ==
--- NOTE | 2023-07-13 10:36 | A.OFFVIS_ITS ---
Vital Signs 07/13/23 10:37 Height 5 ft 7 in Weight 149 lb 14.629 oz BMI 23.5 BP 116/60 Intake Visit Reasons: ecc results Pharmacovigilance Scientist Required: No Information Interpreted: non-clinical & clinical Accompanied by: Self / Same As Patient Allergies bee pollen [BEE STINGS] Allergy (Intermediate, Verified 07/13/23 10:39) Swelling Post menopausal: Yes HPI Comments Details: Presenting post ECC doing well with no complaints. The pathology showed the following: Endocervix, curettage: Fragments of benign endocervical glands and stroma with prior biopsy site changes; negative for squamous intraepithelial lesion. COMMENT: Note is made of the patient's previous Pap smear ([id number]; NILM; HPV+) On 06/21/2023 colposcopy was done the pathology report showed the following: A. Endocervix, curettage: No tissue present for evaluation. B. Cervix, 1:00, biopsy: Squamous mucosa with atrophic and reactive changes; negative for dysplasia; no endocervical glandular component present. C. Cervix, 3:00, biopsy: Squamous mucosa with atrophic and reactive changes; negative for dysplasia; no endocervical glandular component present. D. Cervix, 5:00, biopsy: Squamous mucosa with atrophic and reactive changes; negative for dysplasia; no endocervical glandular component present. E. Cervix, 9:00, biopsy: Atrophic squamous and endocervical glandular mucosa with inflammation; negative for dysplasia. F. Cervix, 11:00, biopsy: Squamous mucosa with atrophic and reactive changes and detached endocervical glandular epithelium; negative for dysplasia. G. Cervix, 12:00, biopsy: Squamous mucosa with atrophic and reactive changes, and detached endocervical glandular epithelium; negative for dysplasia. Comment: The patient's previous negative Pap test ([id number]) concurs with the current biopsy. PENDING SALE TO [facility] Medical History Pelvic pain in female BONIFACIO I (cervical intraepithelial neoplasia I) Impaired glucose tolerance Right elbow pain Vitamin D insufficiency Dyslipidemia Vitamin D deficiency GERD (gastroesophageal reflux disease) Hypercholesterolemia Hypertension Surgical History Hx of colonoscopy H/O right breast biopsy Family History Father Lung cancer Mother Stroke Hypertension Social History Housing: House Alcohol intake: never Patient Tobacco Use Status: Former Tobacco user Quit Date: 2009 Tobacco use type: Cigarette e-Cigarette/Vaping Use: Never Used Second Hand Smoke Exposure: No service: No Current occupational status: employed Current occupational exposures/hazards: No Sexual orientation: Straight/Heterosexual Gender identity: Female Cognitive needs: No Hearing needs: No Vision needs: Yes Review of Systems Const All systems reviewed & are unremarkable except as noted in HPI and below Reports as per HPI and Reports no additional complaints GI Reports no additional complaints Reports no additional complaints Physical Exam Vital Signs: Last Vital Signs BP 116/60 07/13/23 10:37 BMI result Body Mass Index 23.5 Assessment & Plan Assessment & Plan (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 Discussed with the patient the sensitivity specificity, positive and negative predictive value in detecting cervical cancer in addition discussed the regression, persistence and progression rates. Recommended co-testing in 12 months, if cytology and or HPV are abnormal will proceed was colposcopy biopsy and endocervical curettage, if lesions gets worse or stays persistent for 2 years will proceed with loop electric excision procedure. Instructions given to the patient to schedule a co test appointment in 1 year. All questions answered the patient verbalized understanding. Coding Level of Care Code Est Pt Level 3 (20755) Diagnoses HPV in female B97.7
[2023-07-13 10:37] VITALS: BP 116/60; BMI 23.5
== END 2023-07-13 11:29 | disposition home or self-care (01) ==
PROVIDERS: PCP Internal Medicine; Visit Provider Obstetrics & Gynecology
DX: R87.810 Cervical high risk human papillomavirus (HPV) DNA test positive (principal)
CPT/HCPCS: 99213

== ENCOUNTER → 2023-07-13 10:28 | Outpatient (BNVA) | payer MEDICARE, SELFPAY | PROVIDERS: PCP Internal Medicine; Visit Provider Obstetrics & Gynecology | DX: Z71.2 Person consulting for explanation of examination or test findings (principal); B97.7 Papillomavirus as the cause of diseases classified elsewhere | CPT/HCPCS: 99212 ==

== ENCOUNTER 2023-11-11 18:50 | Inpatient (IN) | payer MEDICARE, SELFPAY ==
--- NOTE | ~2023-11-11 | CT_ITS ---
EXAMINATION: CT ABDOMEN AND PELVIS WITH CONTRAST CLINICAL INFORMATION: Abdominal discomfort and UTI COMPARISON: None available. TECHNIQUE: Multidetector volumetric images were obtained from the superior aspect of the liver through the pubic symphysis following administration 85 mL of Omnipaque 350 intravenous contrast. Sagittal and coronal reformatted images were obtained on the technologist's workstation. Oral contrast: No This CT examination was performed using dose optimization techniques as appropriate, variously including the following: *Automated exposure control *Adjustment of mA and/or kV according to patient size (this includes techniques or standardized protocols for targeted exams where dose is matched to indication/reason for exam; i.e. extremities or head) *Use of iterative reconstruction technique DLP: 437 mGy-cm FINDINGS: LUNG BASES: The visualized lung bases are unremarkable. LIVER, GALLBLADDER, AND BILIARY TREE: The liver is normal in size, shape, and attenuation. No focal hepatic lesion or biliary ductal dilatation is present. The gallbladder is unremarkable with no evidence of radiopaque gallstones, gallbladder wall thickening, or obvious pericholecystic inflammatory changes. PANCREAS: Unremarkable. SPLEEN: Unremarkable. ADRENAL GLANDS: Unremarkable. KIDNEYS AND URETERS: There are multiple wedge-shaped areas of hypoattenuation seen in both kidneys which are heterogeneous. No discrete renal masses are seen. No hydronephrosis, hydroureter, or calculi seen. No perinephric stranding. BLADDER: Unremarkable. GASTROINTESTINAL TRACT: The small and large bowel are unremarkable. The appendix is unremarkable. ABDOMINAL WALL: No significant hernia is appreciated. LYMPH NODES: No retroperitoneal lymphadenopathy VASCULAR: Unremarkable. Reflux is present in both ovarian veins with moderate pelvic varices, left greater than right. Both renal veins appear normal. There are single renal arteries present bilaterally which are patent. PELVIC VISCERA: The uterus and adnexa are unremarkable. OSSEOUS STRUCTURES: Degenerative changes are present in the spine most marked from L4 through S1 CT/CT abdomen pelvis w IV con IMPRESSION: 1. Multiple wedge-shaped areas of hypoattenuation are present in both kidneys. The most likely diagnosis is multifocal bacterial nephritis (i.e, Pyelonephritis) along with renal infarcts. 2. 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 3. Degenerative changes in the spine. Fleischner guidelines were followed. Electronically signed by: Jeremi Lujan MD 11/12/2023 12:23 AM EDT RP
--- NOTE | ~2023-11-11 | XR_ITS ---
EXAMINATION: XR CHEST CLINICAL INFORMATION: Upper respiratory tract infection COMPARISON: 12/29/2022 TECHNIQUE: Frontal view of the chest was obtained. FINDINGS: No significant abnormality is noted involving the heart, lungs, mediastinum, bony thorax or soft tissues. XR/XR chest 1V IMPRESSION: Unremarkable examination. Electronically signed by: Jeremi Lujan MD 11/11/2023 10:47 PM EDT RP
--- NOTE | 2023-11-11 19:07 | ED_ITS ---
HPI - General Adult General Chief complaint: Fever Stated complaint: fatigue fever chills Time Seen by Provider: 11/11/23 19:27 Source: patient Mode of arrival: ambulatory Limitations: no limitations History of Present Illness ED Provider: Jackie MERRITT HPI narrative: This is a 68-year-old female past medical history significant for Lyme disease, upset HPV, GERD, tubular adenoma of colon, hypertension, dyslipidemia presenting to the emergency department complaints of fatigue, malaise, myalgias, global weakness, fevers, headache ( diffuse no visual changes, dizziness, trauma) ongoing for the past 4 days. Patient reports in July 2023 was dx w/ lyme but never saw a doctor for it and never was treated for it. She had atbx in July 2023 for dental implant but not for lyme specifically. Endorses headache, nausea, weakness, dizziness. Denies abd pain, vomiting, neck pain, cp, sob, vision changes, trauma. Related Data Previous Rx's ?Medication ?Instructions ?Recorded epinephrine 0.3 mg/0.3 mL 0.3 mg (0.3 mL) IM Q10M PRN 08/25/20 injection, auto-injector (EpiPen anaphylaxis 30 days #1 ea 2-Mirza) cholecalciferol (vitamin D3) 25 25 mcg PO DAILY 90 days #90 caps 05/14/23 mcg (1,000 unit) capsule simvastatin 10 mg tablet 10 mg PO BEDTIME 90 days #90 tabs 05/31/23 hydrochlorothiazide 25 mg tablet 25 mg PO DAILY 90 days #90 tabs 06/28/23 cefuroxime axetil 250 mg tablet 250 mg PO BID 7 days #14 tabs 11/11/23 doxycycline hyclate 100 mg capsule 100 mg PO BID 14 days #28 caps 11/11/23 Allergies Allergy/AdvReac Type Severity Reaction Status Date / Time bee pollen [BEE STINGS] Allergy Intermediate Swelling Verified 11/11/23 19:18 Review of Systems 2 Review of Systems: Yes all other systems are reviewed and are negative PMFSH Past Medical History Attestation statement: The following information was validated with the patient. Source: old records reviewed and nursing notes reviewed Medical History Pelvic pain in female BONIFACIO I (cervical intraepithelial neoplasia I) Impaired glucose tolerance Right elbow pain Vitamin D insufficiency Dyslipidemia Vitamin D deficiency GERD (gastroesophageal reflux disease) Hypercholesterolemia Hypertension Surgical History Hx of colonoscopy H/O right breast biopsy Family History Family History Father Lung cancer Mother Stroke Hypertension Social History Social History Housing: House Alcohol intake: never Patient Tobacco Use Status: Former Tobacco user Tobacco use type: Cigarette e-Cigarette/Vaping Use: Never Used Second Hand Smoke Exposure: No Advance Directives: No Advance Directives Information Provided: No Do you have a plan to hurt others: No Plan service: No Current occupational status: employed Current occupational exposures/hazards: No Sexual orientation: Straight/Heterosexual Gender identity: Female Cognitive needs: No Hearing needs: No Vision needs: Yes Physical Exam ED Vital Signs: Vital Signs - 24 hr 11/11/23 19:16 11/11/23 21:34 11/11/23 22:29 Temperature 99.8 F 97.9 F 98.3 F Pulse Rate 83 80 78 Respiratory Rate 14 18 20 Blood Pressure 106/60 124/68 117/56 L Pulse Oximetry 97 99 98 Oxygen Delivery Method Room Air Room Air Room Air 11/11/23 23:04 Temperature 98.5 F Pulse Rate 80 Respiratory Rate 19 Blood Pressure 94/48 L Pulse Oximetry 98 Oxygen Delivery Method Room Air BMI result Body Mass Index 24.6 vss Appearance: Alert.? Oriented X3.? No acute distress.? Head: Normocephalic, atraumatic, no step-offs or deformities Eyes: Pupils equal, round and reactive to light.? ENT: Pharynx normal.? Neck: Normal inspection.? Neck supple.? CVS: Normal heart rate and rhythm.? Pulses normal.? Respiratory: No respiratory distress.? Breath sounds normal.? Abdomen: Soft and nontender.?No suprapubic tenderness. No CVA tenderness b/l Skin: Skin warm and dry.? Normal skin color.? Normal skin turgor.? Extremities: No lower extremity edema.? No calf ttp. 5/5 strength to bilateral upper and lower extremities Neuro: Oriented X 3.? No motor deficit.? No sensory deficit. CN 2-12 intact Course Course Course Narrative: This is an RME performed by Nanci Simon CNP: Additional HPI, ROS, PE not included below will be deferred to primary provider. Patient is a 68-year-old female who presents to the emergency department for evaluation of 4 days high fever, H/A, nausea, fatigue, myalgias of bilateral legs, generalized weakness. Denies ABD pain, symptoms, known sick contacts. She presented to urgent care prior to arrival and tested negative for COVID-19 and influenza. Reports July of 2023 she tested seropositive for Lyme disease in [place], but she never saw a doctor this was just done at a lab. She was subsequently treated with a course of antibiotics due to a dental implant in July of 2023. Reevaluation(s) Reevaluation #1: CBC slight leukocytosis with a left shift. Chemistry with elevated BUN, will give IV hydration at this time and encourage p.o. hydration. BUN is chronically elevated however today slightly higher than usual. Total bilirubin 1.5 will obtain abd imaging at this time . Lipase normal. UA with evidence of infection. Lyme testing pending, flu, COVID, RSV pending, CT abdomen pelvis pending. Time: 20:09 Reevaluation #2: Flu, COVID, RSV negative. CT abdomen and pelvis still pending. Patient's pressure has been soft. Due to multiple things going on such as UTI possible tick-borne illness will admit patient for UTI, IV antibiotics, p.o. antibiotics doxycycline. Family and patient aware of this and are agreeable Time: 23:53 Medications Administered Discontinued Medications Generic Name Dose Route Start Last Admin Trade Name Thanh PRN Reason Stop Dose Admin Sodium Chloride 1,947 mls @ 1,947 mls/hr 11/11/23 20:11 11/11/23 22:27 Ns 30 ml/kg infuse over 1 hr (1947 ml) 11/11/23 21:10 Infused IV Infusion .Q1H STA Ceftriaxone Sodium 1 gm/ 50 mls @ 100 mls/hr 11/11/23 20:11 11/11/23 21:26 Sodium Chloride IV 11/11/23 20:40 Infused ONCE ONE Infusion Iohexol 85 ml 11/11/23 21:31 11/11/23 21:31 Iohexol 350 Mg/Ml 100 Ml Infus..Btl IV 11/11/23 21:32 85 ml ONCE ONE Administration Medical Decision Making Medical Decision Making [facility] Narrative: 2003 68-year-old female presents with fatigue, malaise, myalgias, headache ongoing for the past 4 days. Also reports high fevers at home. Also was told she had Lyme in July however did not receive treatment Physical exam benign. History and physical exam concerning for Lyme disease versus UTI versus metabolic derangements. Unlikely meningitis, encephalitis, intracranial hemorrhage, stroke, posterior stroke. Plan labs, tick panel, Lyme testing, chest x-ray Differential Diagnosis Differential Diagnoses: The differential diagnosis associated with the presentation includes History and physical exam concerning for Lyme disease versus UTI versus metabolic derangements. Unlikely meningitis, encephalitis, intracranial hemorrhage, stroke, posterior stroke. Admission/Observation Consideration of admission/observation: Escalation of care including admission/observation considered possible Lab Data [facility] Lab Attestation statement: I reviewed the patient's lab results. 11/11/23 19:27 11/11/23 19:27 Labs: Lab Results 11/11/23 11/11/23 11/11/23 Range/Units 19:27 19:33 20:31 WBC 12.0 H (4.8-10.8) X10*3/uL RBC 3.97 L (4.20-5.50) X10*6/uL Hgb 12.2 (12.0-16.0) g/dl Hct 34.2 L (37.0-47.0) % MCV 86.1 (80.0-98.0) fL MCH 30.7 (27.0-33.0) pg MCHC 35.7 H (31.0-35.0) g/dl RDW 12.7 (11.0-16.0) % Plt Count 187 (160-400) X10*3/uL MPV 10.6 (9.4-12.3) fL Immature Gran % (Auto) 0.5 H (0.0-0.4) % Neut % (Auto) 82.9 H (45-73) % Lymph % (Auto) 6.8 L (20-40) % [place] % (Auto) 9.3 (2-11) % Eos % (Auto) 0.2 (0-4) % Baso % (Auto) 0.3 (0-2) % Lymph # (Auto) 0.8 L (1.2-4.9) X10*3/uL [place] # (Auto) 1.1 (0.1-1.2) X10*3/uL Eos # (Auto) 0.0 (0.0-0.4) X10*3/uL Baso # (Auto) 0.0 (0.0-0.2) X10*3/uL Abs Immat Gran (auto) 0.06 H (0.00-0.03) X10*3/uL Absolute Neuts (auto) 10.0 H (2.0-8.3) x10*3/uL Absolute Nucleated RBC 0.000 (0.0-0.012) X10*3/uL Nucleated RBC % (auto) 0.0 (0.0-0.2) /100WBC Sodium 135 (135-145) mmol/L Potassium 3.5 (3.3-5.1) mmol/L Chloride 93 L (96-108) mmol/L Carbon Dioxide 30 H (22-29) mmol/L Anion Gap 16 (12-20) BUN 25 H (9-16) mg/dL Creatinine 1.37 (0.5-1.4) mg/dL Estim Creat Clear Calc 34.9 Estimated GFR 39 Random Glucose 133 H (60-115) mg/dL Lactic Acid 1.0 (0.5-2.0) mmol/L Calcium 9.9 (8.4-10.2) mg/dL Total Bilirubin 1.5 H (0.0-1.0) mg/dL AST 19 (5-31) U/L ALT 16 (0-31) U/L Alkaline Phosphatase 56 (39-117) U/L Total Protein 7.4 (6.5-8.0) g/dL Albumin 3.9 (3.5-5.0) g/dL Lipase 7 L (8-78) U/L Urine Color Dark Yellow Urine Appearance Turbid Urine pH 5.5 (5.0-9.0) Ur Specific [place] 1.020 (1.005-1.025) Urine Protein 30 (1+) H (Neg-Trace) mg/dL Urine Glucose (UA) Negative (Negative) mg/dL Urine Ketones Trace (Negative) mg/dL Urine Blood Small (1+) H (Negative) Urine Nitrite Positive H (Negative) Ur Leukocyte Esterase Large (3+) H (Negative) Urine RBC 6-10 H (0-2) /HPF Urine WBC >50 H (0-5) /HPF Ur Squamous Epith Cells 0-2 (0-2) /HPF Urine Bacteria 4+ (None Seen) Hyaline Casts 11-20 (0-2) /LPF Influenza Type A (PCR) NEGATIVE (Negative) Influenza Type B (PCR) NEGATIVE (Negative) RSV RNA Qual (PCR) NEGATIVE (Negative) SARS-CoV-2 RNA (RT-PCR) NEGATIVE (Negative) Independent Interpretation I performed an independent interpretation of an: Plain X-Ray (XR/XR chest 1V IMPRESSION: Unremarkable examination. ) Radiology Impression Discussion of test interpretation with radiology: I have reviewed the radiologist's reading. External Record Review External record reviewed: Office record, Outpatient record, Prior outpatient labs, Prior outpatient radiology and Primary care record Prescription Management I considered prescription management with: Antibiotic Chronic Conditions Patient?s care impacted by: Other (HPV, GERD, hyperlipidemia, hypertension) Critical Care Time Critical Care Time Critical Care Time: Yes Total Critical Care Time: 35 Attestation: I attest to this time spent taking care of the patient, obtaining history, physical, reviewing labs, imaging, treatment of patients condition +/- specialist/hospitalist consult Discharge Plan Discharge Clinical Impression: Fever, UTI (urinary tract infection), At high risk for tick borne illness Patient Disposition: Admitted As Inpatient Instructions: Urinary Tract Infection in Women (ED), Fever in Adults (ED) Additional Instructions: Take your medications as prescribed. If you were prescribed antibiotics today, it is important that you take your medication to their entirety, do not skip any doses, do not finish them early. Follow-up with your primary care provider this week. Return to the emergency department with new or worsening symptoms. Such as fevers, chills, chest pain, shortness of breath, nausea, vomiting, dizziness, headache, vision changes, lethargy In case of emergency call 911 Your test for Lyme disease and other tick-borne illnesses are still pending. I have sent doxycycline over to the pharmacy which treats Lyme disease, I have sent 14 days over, if test is positive he may require more days. Ceftin as an antibiotic that has been sent over for urinary tract infection. Prescriptions: New doxycycline hyclate 100 mg capsule 100 mg PO BID 14 Days Qty: 28 0RF cefuroxime axetil 250 mg tablet 250 mg PO BID 7 Days Qty: 14 0RF No Action cholecalciferol (vitamin D3) 25 mcg (1,000 unit) capsule 25 mcg PO DAILY 90 Days Qty: 90 1RF simvastatin 10 mg tablet 10 mg PO BEDTIME 90 Days Qty: 90 1RF hydrochlorothiazide 25 mg tablet 25 mg PO DAILY 90 Days Qty: 90 1RF epinephrine [EpiPen 2-Mirza] 0.3 mg/0.3 mL auto-injector 0.3 mg IM Q10M PRN (Reason: anaphylaxis) 30 Days Qty: 1 1RF Rx Instructions: for 2 doses Referrals: Willow Hill MD [Primary Care Provider] - 2 days Print Language: American
[2023-11-11 19:16] VITALS: BP 106/60; PULSE 83; RESP 14; TEMP 37.7; O2SAT 97; BMI 24.6
[2023-11-11 19:34] LABS: MANUAL DIFF FLAG NO
[2023-11-11 19:36] LABS: Basophils Percent Auto 0.3 % (0-2); Eosinophils Percent Auto 0.2 % (0-4); Hematocrit 34.2 % (37.0-47.0); Hemoglobin 12.2 g/dl (12.0-16.0); Imm Gran Abs Auto 0.06 X10*3/uL (0.00-0.03); Imm Gran Pct Auto 0.5 % (0.0-0.4); Lymphocytes Absolute Auto 0.8 X10*3/uL (1.2-4.9); Lymphocytes Percent Auto 6.8 % (20-40); Mean Corpuscular HGB Conc 35.7 g/dl (31.0-35.0); Mean Corpuscular Hemoglobin 30.7 pg (27.0-33.0); Mean Corpuscular Volume 86.1 fL (80.0-98.0); Mean Platelet Volume 10.6 fL (9.4-12.3); Monocytes Absolute Auto 1.1 X10*3/uL (0.1-1.2); Monocytes Percent Auto 9.3 % (2-11); Neutrophils Percent Auto 82.9 % (45-73); Platelet Count 187 X10*3/uL (160-400); Red Blood Count 3.97 X10*6/uL (4.20-5.50); Red Cell Distribution Width 12.7 % (11.0-16.0)
[2023-11-11 19:46] LABS: Appearance Urine Turbid; Color Urine Dark Yellow; Glucose Urine UA Negative (Negative); Leukocyte Esterase Urine Large (3+) (Negative); Nitrite Urine Positive (Negative); PH 5.5 (5.0-9.0); UMIC TRIGGER UACC YES; Urine Blood Small (1+) (Negative); Urine Ketones Trace mg/dL (Negative); Urine Protein 30 (1+) mg/dL (Neg-Trace)
[2023-11-11 19:54] LABS: Alanine Aminotransferase 16 U/L (0-31); Albumin Level 3.9 g/dL (3.5-5.0); Alkaline Phosphatase 56 U/L (39-117); Anion Gap 16 (12-20); Aspartate Amino Transferase 19 U/L (5-31); Bilirubin Total 1.5 mg/dL (0.0-1.0); Blood Urea Nitrogen 25 mg/dL (9-16); Calcium 9.9 mg/dL (8.4-10.2); Carbon Dioxide 30 mmol/L (22-29); Chloride 93 mmol/L (96-108); Creatinine Clr Calc Pharmacy 34.9; Estimated Glomerular Filt Rate 39; Glucose Random 133 mg/dL (60-115); Lipase 7 U/L (8-78); Potassium 3.5 mmol/L (3.3-5.1); Sodium 135 mmol/L (135-145); Total Protein 7.4 g/dL (6.5-8.0)
[2023-11-11 19:59] LABS: Bacteria Urine 4+ (None Seen); Squamous Epithelial Cell Urine 0-2 /HPF (0-2); UACC Culture Trigger YES; WBC Urine >50 /HPF (0-5)
[2023-11-11] MEDS: cefTRIAXone sodium 1 GM in 0.9 % Sodium Chloride 50 ML IV (20:56)
[2023-11-11 21:19] LABS: Influenza A PCR NEGATIVE (Negative); Influenza B PCR NEGATIVE (Negative); Resp Syncy Virus RNA Qual PCR NEGATIVE (Negative); SARS COV2 PCR INHOUSE NEGATIVE (Negative)
[2023-11-11] MEDS: iohexoL 350 MG/ML 100 ML INFUS..BTL 85 ML IV (21:31)
[2023-11-11 21:34] VITALS: BP 124/68; PULSE 80; RESP 18; TEMP 36.6; O2SAT 99
[2023-11-11 22:29] VITALS: BP 117/56; PULSE 78; RESP 20; TEMP 36.8; O2SAT 98
[2023-11-11 23:04] VITALS: BP 94/48; PULSE 80; RESP 19; TEMP 36.9; O2SAT 98
[2023-11-12] VITALS (7 sets, daily range): BP systolic 104–132; BP diastolic 47–60; PULSE 65–88; RESP 16–20; TEMP 36.1–37.9; O2SAT 94–97; BMI 24.5
[2023-11-12] MEDS: Doxycycline Monohydrate 100 MG CAPSULE PO ×3 (00:06→19:50)
--- NOTE | 2023-11-12 01:04 | P.HPHOSP_ITS ---
History of Present Illness Date of Service: 11/12/23 Attending physician on admission: Hebert Andrews Chief Complaint: Headache, fever and chills Jazmyn Narvaez this is a 68 years old woman with past medical history significant for hypertension on hydrochlorothiazide presents to the emergency department complaining of bilateral leg pain diastolic associated with fever and chills. She also reported generalized headache, fatigue and nausea without episodes of vomiting. She denied any sore throat, ear pain, cough, shortness of breath, abdominal pain or any acute urinary changes. Denied any rash. She stated that she has been taking Tylenol as needed. Patient mentioned that on June of this year she was found to have a tick inside her left ear. It is unclear to me if the patient was tested for Lyme or tested for Lyme disease. Denied tobacco smoking, alcohol abuse or illicit drug use. In the ED, she was found to have stable vital signs. Blood workup showed leukocytosis of 12.0, hemoglobin and platelets are normal. There is no lactic acidosis. There are no significant electrolyte imbalances. Chloride is 93. CO2 is 30. Anion gap is normal and BUN is 25. Creatinine is 1.37. LFTs are normal. Total bilirubin is 1.5. Urinalysis consistent with urinary tract infection, microscopic hematuria and proteinuria. Viral testing for influenza, RSV and COVID is negative. Abdominal pelvis CT scan showed finding likely consistent with multifocal bacterial nephritis/pyelonephritis along with renal infarcts. CXR is negative. ED tx: NS bolus 2 L, ceftriaxone 1 g IV, doxycycline 100 mg p.o. Review of Systems 2 Review of Systems: All 12 systems were reviewed and normal except as noted in HPI. [facility] Medical History Pelvic pain in female BONIFACIO I (cervical intraepithelial neoplasia I) Impaired glucose tolerance Right elbow pain Vitamin D insufficiency Dyslipidemia Vitamin D deficiency GERD (gastroesophageal reflux disease) Hypercholesterolemia Hypertension Family History Father Lung cancer Mother Stroke Hypertension Surgical History Hx of colonoscopy H/O right breast biopsy Social History Housing: House Alcohol intake: never Patient Tobacco Use Status: Former Tobacco user Tobacco use type: Cigarette e-Cigarette/Vaping Use: Never Used Second Hand Smoke Exposure: No Advance Directives: No Advance Directives Information Provided: No Do you have a plan to hurt others: No Plan service: No Current occupational status: employed Current occupational exposures/hazards: No Sexual orientation: Straight/Heterosexual Gender identity: Female Cognitive needs: No Hearing needs: No Vision needs: Yes Meds Allergies Allergy/AdvReac Type Severity Reaction Status Date / Time bee pollen [BEE STINGS] Allergy Intermediate Swelling Verified 11/11/23 19:18 Active Medications: Current Medications Acetaminophen (Acetaminophen 325 Mg Tablet) 975 mg PO Q6H PRN PRN Reason: Pain, Mild (Pain Scale 1-3), fever or headache Doxycycline Monohydrate (Doxycycline Monohydrate 100 Mg Capsule) 100 mg PO BID [facility] Heparin Sodium (Porcine) (Heparin Sodium,Porcine 5,000 Unit/Ml Vial) 5,000 unit SUBCUT Q8H [facility] Lactated Ringer's (Lr) 1,000 mls @ 999 mls/hr IV .Q1H1M [facility] Stop: 11/12/23 02:00 Ceftriaxone Sodium 1 gm/ (Sodium Chloride) 50 mls @ 100 mls/hr IV Q24H [facility] Lactated Ringer's (Lr) 1,000 mls @ 125 mls/hr IVCONT .Q8H [facility] Melatonin (Melatonin 3 Mg Tablet) 6 mg PO BEDTIME PRN PRN Reason: Insomnia Ondansetron HCl (Ondansetron Hcl 4 Mg/2 Ml Vial) 4 mg IVPUSH Q8H PRN PRN Reason: Nausea and Vomiting Sodium Chloride (0.9 % Sodium Chloride Flush 3 Ml Syringe) 3 ml IVFLUSH QSHIFT [facility] Physical Exam 2 Vital Signs and Narrative: Vital Signs: Last Vital Signs Temp 99.7 F 11/12/23 00:59 Pulse 88 11/12/23 00:59 Resp 18 11/12/23 00:59 BP 110/47 L 11/12/23 00:59 Pulse Ox 96 11/12/23 00:59 O2 Del Method Room Air 11/12/23 00:59 BMI result Body Mass Index 24.6 Constitutional - Awake and Alert, No apparent distress. Febrile. Acutely ill. Pleasant. Cooperative. HEENT - PERRL, EOMI. Dry oral mucosa. Tympanic membranes intact. Heart - S1S2, RRR. Lungs - Normal lung expansion, Normal respiratory effort, No respiratory distress, CTA bilaterally Abdomen - NT / ND; +BS; No rebound or guarding - No CVA tenderness Extremities - no calf tenderness bilaterally, no swelling Musculoskeletal - Normal inspection, normal ROM Skin - Warm/Dry. No rashes. No pallor. No jaundice. Neurological - Alert & oriented x3. No focal weakness grossly noted. Normal speech. Psychological - Appropriate affect Results Labs 11/11/23 19:27 11/11/23 19:27 Labs: Laboratory Results - last 24 hr 11/11/23 11/11/23 11/11/23 19:27 19:33 20:31 MCV 86.1 MCH 30.7 MCHC 35.7 H RDW 12.7 Plt Count 187 MPV 10.6 Immature Gran % (Auto) 0.5 H Neut % (Auto) 82.9 H Lymph % (Auto) 6.[address] [place] % (Auto) 9.3 Eos % (Auto) 0.2 Baso % (Auto) 0.3 Lymph # (Auto) 0.[address] [place] # (Auto) 1.1 Eos # (Auto) 0.0 Baso # (Auto) 0.0 Abs Immat Gran (auto) 0.06 H Absolute Neuts (auto) 10.0 H Absolute Nucleated RBC 0.000 Nucleated RBC % (auto) 0.0 Anion Gap 16 Estim Creat Clear Calc 34.9 Estimated GFR 39 Random Glucose 133 H Lactic Acid 1.0 Calcium 9.9 Total Bilirubin 1.5 H AST 19 ALT 16 Alkaline Phosphatase 56 Total Protein 7.4 Albumin 3.9 Lipase 7 L Urine Color Dark Yellow Urine Appearance Turbid Urine pH 5.5 Ur Specific [place] 1.020 Urine Protein 30 (1+) H Urine Glucose (UA) Negative Urine Ketones Trace Urine Blood Small (1+) H Urine Nitrite Positive H Ur Leukocyte Esterase Large (3+) H Urine RBC 6-10 H Urine WBC >50 H Ur Squamous Epith Cells 0-2 Urine Bacteria 4+ Hyaline Casts 11-20 Influenza Type A (PCR) NEGATIVE Influenza Type B (PCR) NEGATIVE RSV RNA Qual (PCR) NEGATIVE SARS-CoV-2 RNA (RT-PCR) NEGATIVE Imaging Radiologist's Impressions: Impressions Chest X-Ray 11/11/23 18:55 IMPRESSION: Unremarkable examination. Electronically signed by: Jeremi Lujan MD 11/11/2023 10:47 PM EDT RP Abdomen/Pelvis CT 11/11/23 21:00 IMPRESSION: 1. Multiple wedge-shaped areas of hypoattenuation are present in both kidneys. The most likely diagnosis is multifocal bacterial nephritis (i.e, Pyelonephritis) along with renal infarcts. 2. 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 3. Degenerative changes in the spine. Fleischner guidelines were followed. Electronically signed by: Jeremi Lujan MD 11/12/2023 12:23 AM EDT RP Assessment and Plan (1) UTI (urinary tract infection): Qualifiers: Urinary tract infection type: acute pyelonephritis Qualified Code(s): N 10 - Acute pyelonephritis Status: Acute (2) Benign essential hypertension: Status: Acute (3) PRO (acute kidney injury): Status: Acute Plan Jazmyn Narvaez this is a 68 y/o woman admitted with: * Pyelonephritis. Admit to hospitalist service. Continue IV fluids and other supportive therapy. Continue empiric IV antibiotic therapy with ceftriaxone. Blood and urine culture were obtained -will follow results. Lyme disease testing ordered by ED -will follow results. * Metabolic alkalosis, contraction. Due to dehydration. Continue IV fluids. Continue to monitor CO2 levels. * Acute kidney injury. Secondary to poor p.o. intake and febrile disease. Continue IV fluids. Continue to monitor renal function. Hydrochlorothiazide on hold. Avoid nephrotoxic agents. * Essential hypertension. Hydrochlorothiazide on hold, due to soft BP, dehydration. DVT prophylaxis: Heparin Code status: Full Patient will need hospitalization for at least 2 midnights for pyelonephritis/febrile illness treatment with IV antibiotic therapy, IV fluids and close monitoring of vital signs. Quality Stroke Does the patient have a stroke diagnosis?: No VTE Prior VTE?: No VTE Risk Level:: Medical - moderate - high VTE Device Contraindication: Treatment Not Indicated VTE Drug Contraindication: N/A - Med Ordered
[2023-11-12] MEDS: Lactated Ringers 1,000 ML 999 ML IV (01:23)
[2023-11-12] MEDS: Lactated Ringers 1,000 ML 125 ML IVCONT ×3 (01:24→18:12)
[2023-11-12] MEDS: ondansetron HCL 4 MG/2 ML VIAL IVPUSH (01:24)
[2023-11-12] MEDS: Heparin Sodium,Porcine 5,000 UNIT/ML VIAL 5000 UNIT SUBCUT ×3 (05:52→22:14)
--- NOTE | 2023-11-12 09:05 | PHA.MEDREC ---
Addendum entered by Tiffany Roe RPh 11/12/23 09:13: reviewed by [facility]. Original Note: Pharmacy Consult ? Medication Reconciliation Pharmacy has completed the medication reconciliation. Spoke with patient to confirm medications. She last took everything on Monday. She was not on any antibiotics before coming here.
[2023-11-12 10:14] LABS: MANUAL DIFF FLAG NO
--- NOTE | 2023-11-12 10:25 | PM.EVENT ---
Event Note Date of Service: 11/12/23 Event Note: a 68 y/o woman admitted with Pyelonephritis Pyelonephritis. Continue IV fluids and other supportive therapy. Continue empiric IV antibiotic therapy with ceftriaxone. Blood and urine culture were obtained -will follow results. Lyme disease testing ordered by ED -will follow results. Metabolic alkalosis, contraction. Due to dehydration. Continue IV fluids. Continue to monitor CO2 levels. Acute kidney injury. Secondary to poor p.o. intake and febrile disease. Continue IV fluids. Continue to monitor renal function. Hydrochlorothiazide on hold. Avoid nephrotoxic agents. Essential hypertension. Hydrochlorothiazide on hold, due to soft BP, dehydration. DVT prophylaxis: Heparin Attending Dr. Gregg Code status: Full Patient will need hospitalization for at least 2 midnights for pyelonephritis/febrile illness treatment with IV antibiotic therapy, IV fluids and close monitoring of vital signs. Time Spent With Patient Time: Total time managing care of this patient today ____ minutes.
[2023-11-12 10:26] LABS: Basophils Percent Auto 0.2 % (0-2); Hematocrit 29.2 % (37.0-47.0); Hemoglobin 10.2 g/dl (12.0-16.0); Imm Gran Abs Auto 0.04 X10*3/uL (0.00-0.03); Imm Gran Pct Auto 0.5 % (0.0-0.4); Lymphocytes Absolute Auto 0.9 X10*3/uL (1.2-4.9); Lymphocytes Percent Auto 10.4 % (20-40); Mean Corpuscular HGB Conc 34.9 g/dl (31.0-35.0); Mean Corpuscular Hemoglobin 30.5 pg (27.0-33.0); Mean Corpuscular Volume 87.4 fL (80.0-98.0); Mean Platelet Volume 10.7 fL (9.4-12.3); Monocytes Absolute Auto 1.1 X10*3/uL (0.1-1.2); Monocytes Percent Auto 12.1 % (2-11); Neutrophils Absolute Auto 6.7 x10*3/uL (2.0-8.3); Neutrophils Percent Auto 76.8 % (45-73); Platelet Count 148 X10*3/uL (160-400); Red Blood Count 3.34 X10*6/uL (4.20-5.50); White Blood Count 8.8 X10*3/uL (4.8-10.8)
[2023-11-12 11:42] LABS: Alanine Aminotransferase 16 U/L (0-31); Alkaline Phosphatase 45 U/L (39-117); Anion Gap 12 (12-20); Aspartate Amino Transferase 20 U/L (5-31); Bilirubin Total 0.7 mg/dL (0.0-1.0); Blood Urea Nitrogen 15 mg/dL (9-16); Calcium 8.5 mg/dL (8.4-10.2); Carbon Dioxide 28 mmol/L (22-29); Chloride 99 mmol/L (96-108); Creatinine Clr Calc Pharmacy 56.2; Estimated Glomerular Filt Rate > 60; Glucose Random 122 mg/dL (60-115); Sodium 136 mmol/L (135-145); Total Protein 5.8 g/dL (6.5-8.0)
[2023-11-12 11:50] LABS: Potassium 2.7 mmol/L (3.3-5.1)
[2023-11-12] MEDS: Atorvastatin Calcium 10 MG TABLET PO (11:51)
[2023-11-12] MEDS: Acetaminophen 325 MG TABLET 975 MG PO (12:17)
[2023-11-12] MEDS: Potassium Chloride ER 20 MEQ TAB.ER.PRT 40 MEQ PO (13:18)
[2023-11-12] MEDS: Potassium Chloride/H20 10 MEQ/100 ML PIGGYBACK 100 MEQ IV ×2 (13:19→14:28)
--- NOTE | 2023-11-12 15:45 | MHC.CM.PN ---
PT REPORTS SHE LIVES ALONE BUT IF SHE NEEDS ANYTHING HER DAUGHTERS ARE NEARBY SHE DENIES USE OF DME OR HOME SERVICES PT COMPLETED A HCP TODAY NAMING HER DAUGHTERS MARILYN AND BHAKTI HER AGENTS PCP: ELLEN FLORES IMM DELIVERED DCP: HOME NO SERVICES VIA FAMILY TRANSPORT
[2023-11-12] MEDS: 0.9 % Sodium Chloride Flush 3 ML SYRINGE IVFLUSH (15:47)
[2023-11-12] MEDS: cefTRIAXone sodium 1 GM in 0.9 % Sodium Chloride 50 ML IV (19:50)
[2023-11-13] MEDS: Lactated Ringers 1,000 ML 125 ML IVCONT ×2 (02:47→17:49)
[2023-11-13 03:32] VITALS: BP 122/60; PULSE 75; RESP 18; TEMP 37.3; O2SAT 95
[2023-11-13] MEDS: Heparin Sodium,Porcine 5,000 UNIT/ML VIAL 5000 UNIT SUBCUT ×3 (05:30→22:27)
[2023-11-13 07:45] VITALS: BP 128/61; PULSE 80; RESP 16; TEMP 37.8; O2SAT 96
[2023-11-13] MEDS: Atorvastatin Calcium 10 MG TABLET PO (07:47)
[2023-11-13] MEDS: Acetaminophen 325 MG TABLET 975 MG PO ×2 (07:47→17:44)
[2023-11-13] MEDS: Doxycycline Monohydrate 100 MG CAPSULE PO ×2 (07:47→19:37)
--- NOTE | 2023-11-13 09:07 | P.PNIM_ITS ---
Subjective Subjective Date of Service: 11/13/23 Review of Systems Follow up Pyelonephritis Feeling better appetite better Physical Exam 2 Vital Signs: Vital Signs: Last Vital Signs Temp 100.1 F 11/13/23 07:45 Pulse 80 11/13/23 07:45 Resp 16 11/13/23 07:45 BP 128/61 11/13/23 07:45 Pulse Ox 96 11/13/23 07:45 O2 Del Method Room Air 11/13/23 07:45 BMI result Body Mass Index 24.5 Appearing in no acute distress lung sounds are clear to auscultation heart regular rate rhythm, clear S1, S2 positive bowel sounds, abdomen is soft, nontender neuro patient is alert x3, no focal deficits Objective Data Active Medications Acetaminophen (Acetaminophen 325 Mg Tablet) 975 mg PO Q6H PRN PRN Reason: Pain, Mild (Pain Scale 1-3), fever or headache Last Admin: 11/13/23 07:47 Dose: 975 mg Documented By: THOMAS Atorvastatin Calcium (Atorvastatin Calcium 10 Mg Tablet) 10 mg PO DAILY [facility] Last Admin: 11/13/23 07:47 Dose: 10 mg Documented By: THOMAS Doxycycline Monohydrate (Doxycycline Monohydrate 100 Mg Capsule) 100 mg PO BID [facility] Last Admin: 11/13/23 07:47 Dose: 100 mg Documented By: THOMAS Heparin Sodium (Porcine) (Heparin Sodium,Porcine 5,000 Unit/Ml Vial) 5,000 unit SUBCUT Q8H [facility] Last Admin: 11/13/23 05:30 Dose: 5,000 unit Documented By: ALINA Ceftriaxone Sodium 1 gm/ (Sodium Chloride) 50 mls @ 100 mls/hr IV Q24H [facility] Last Infusion: 11/12/23 20:20 Dose: Infused Documented By: ALINA Lactated Ringer's (Lr) 1,000 mls @ 125 mls/hr IVCONT .Q8H [facility] Last Admin: 11/13/23 02:47 Dose: 125 mls/hr Documented By: ALINA Melatonin (Melatonin 3 Mg Tablet) 6 mg PO BEDTIME PRN PRN Reason: Insomnia Ondansetron HCl (Ondansetron Hcl 4 Mg/2 Ml Vial) 4 mg IVPUSH Q8H PRN PRN Reason: Nausea and Vomiting Last Admin: 11/12/23 01:24 Dose: 4 mg Documented By: LEATHA Sodium Chloride (0.9 % Sodium Chloride Flush 3 Ml Syringe) 3 ml IVFLUSH QSHIFT [facility] Last Admin: 11/13/23 07:49 Dose: Not Given Documented By: THOMAS Non-Admin Reason: IV Running Labs 11/13/23 09:02 11/13/23 09:02 Labs: Laboratory Results - last 24 hr 11/12/23 09:58 MCV 87.4 MCH 30.5 MCHC 34.9 RDW 13.0 Plt Count 148 L MPV 10.7 Immature Gran % (Auto) 0.5 H Neut % (Auto) 76.8 H Lymph % (Auto) 10.4 L Mcclain % (Auto) 12.1 H Eos % (Auto) 0.0 Baso % (Auto) 0.2 Lymph # (Auto) 0.9 L Mcclain # (Auto) 1.1 Eos # (Auto) 0.0 Baso # (Auto) 0.0 Abs Immat Gran (auto) 0.04 H Absolute Neuts (auto) 6.7 Absolute Nucleated RBC 0.000 Nucleated RBC % (auto) 0.0 Anion Gap 12 Estim Creat Clear Calc 56.2 Estimated GFR > 60 Random Glucose 122 H Calcium 8.5 D Magnesium 2.0 Total Bilirubin 0.7 AST 20 ALT 16 Alkaline Phosphatase 45 Total Protein 5.8 L Albumin 3.0 L Microbiology Microbiology Results: Microbiology 11/11/23 20:36 Blood Culture - Preliminary Blood - Venous Gram negative billie 11/11/23 19:33 Urine Culture - Final Urine clean catch - Clean Catch Midstream Escherichia coli 11/11/23 20:30 Blood Culture - Preliminary Blood - Venous No growth after 24 hours. Assessment and Plan (1) UTI (urinary tract infection): Status: Acute (2) Pyelonephritis: Status: Acute Plan 68 y/o woman admitted with Pyelonephritis GNR bacteremia, Ecoli UTI 1/2 positive continue Rocephin Pyelonephritis. Continue IV fluids and other supportive therapy. Continue ceftriaxone. Lyme disease testing ordered and pending Hypokalemia repleted Metabolic alkalosis, contraction. Due to dehydration. Continue IV fluids. Continue to monitor CO2 levels. Acute kidney injury. Secondary to poor p.o. intake and febrile disease. Continue IV fluids. Continue to monitor renal function. Hydrochlorothiazide on hold. Avoid nephrotoxic agents. Essential hypertension. Hydrochlorothiazide on hold, due to soft BP, dehydration. DVT prophylaxis: Heparin Attending Dr. Torres Code status: Full Quality Stroke Does the patient have a stroke diagnosis?: No VTE Prior VTE?: No VTE Risk Level:: Medical - moderate - high VTE Device Contraindication: Treatment Not Indicated VTE Drug Contraindication: N/A - Med Ordered
[2023-11-13 09:34] LABS: Hematocrit 30.7 % (37.0-47.0); Hemoglobin 10.7 g/dl (12.0-16.0); Mean Corpuscular HGB Conc 34.9 g/dl (31.0-35.0); Mean Corpuscular Hemoglobin 30.6 pg (27.0-33.0); Mean Corpuscular Volume 87.7 fL (80.0-98.0); Platelet Count 171 X10*3/uL (160-400); Red Cell Distribution Width 12.8 % (11.0-16.0); White Blood Count 7.3 X10*3/uL (4.8-10.8)
[2023-11-13 10:00] LABS: Anion Gap 13 (12-20); Blood Urea Nitrogen 11 mg/dL (9-16); Calcium 8.9 mg/dL (8.4-10.2); Carbon Dioxide 30 mmol/L (22-29); Chloride 99 mmol/L (96-108); Creatinine Clr Calc Pharmacy 48.7; Estimated Glomerular Filt Rate 57; Glucose Random 200 mg/dL (60-115); Potassium 3.5 mmol/L (3.3-5.1); Sodium 138 mmol/L (135-145)
--- NOTE | 2023-11-13 11:01 | MHC.CM.PN ---
PER MD ROUNDS, PT WILL LIKELY BE READY TO DC TOMORROW DCP: HOME WITH FAMILY SUPPORT DAUGHTER TO TRANSPORT
[2023-11-13 15:04] VITALS: BP 122/57; PULSE 72; RESP 18; TEMP 37.5; O2SAT 96
[2023-11-13 17:50] VITALS: TEMP 38.5
[2023-11-13 18:48] VITALS: TEMP 37.8
[2023-11-13 19:28] VITALS: BP 135/62; PULSE 73; RESP 16; TEMP 37.7; O2SAT 96
[2023-11-13] MEDS: cefTRIAXone sodium 1 GM in 0.9 % Sodium Chloride 50 ML IV (19:37)
[2023-11-13] MEDS: 0.9 % Sodium Chloride Flush 3 ML SYRINGE IVFLUSH (22:32)
[2023-11-14 03:40] VITALS: BP 142/64; PULSE 74; RESP 16; TEMP 36.7; O2SAT 94
[2023-11-14] MEDS: Heparin Sodium,Porcine 5,000 UNIT/ML VIAL 5000 UNIT SUBCUT ×3 (05:54→20:11)
[2023-11-14] MEDS: 0.9 % Sodium Chloride Flush 3 ML SYRINGE IVFLUSH ×3 (07:15→20:11)
[2023-11-14 07:36] VITALS: BP 151/70; PULSE 80; RESP 16; TEMP 37.3; O2SAT 94
[2023-11-14] MEDS: Atorvastatin Calcium 10 MG TABLET PO (08:39)
[2023-11-14] MEDS: Doxycycline Monohydrate 100 MG CAPSULE PO ×2 (08:39→20:11)
--- NOTE | 2023-11-14 08:44 | HO.PM.IMPN ---
Subjective Subjective Date of Service: 11/14/23 Review of Systems Follow up Pyelonephritis Feeling better appetite better Physical Exam Vital Signs: Vital Signs: Last Vital Signs Temp 99.2 F 11/14/23 07:36 Pulse 80 11/14/23 07:36 Resp 16 11/14/23 07:36 BP 151/70 H 11/14/23 07:36 Pulse Ox 94 11/14/23 07:36 O2 Del Method Room Air 11/14/23 07:36 BMI result Body Mass Index 24.5 Appearing in no acute distress lung sounds are clear to auscultation heart regular rate rhythm, clear S1, S2 positive bowel sounds, abdomen is soft, nontender neuro patient is alert x3, no focal deficits Objective Data Active Medications Acetaminophen (Acetaminophen 325 Mg Tablet) 975 mg PO Q6H PRN PRN Reason: Pain, Mild (Pain Scale 1-3), fever or headache Last Admin: 11/13/23 17:44 Dose: 975 mg Documented By: THOMAS Atorvastatin Calcium (Atorvastatin Calcium 10 Mg Tablet) 10 mg PO DAILY [facility] Last Admin: 11/14/23 08:39 Dose: 10 mg Documented By: DANDRE Doxycycline Monohydrate (Doxycycline Monohydrate 100 Mg Capsule) 100 mg PO BID [facility] Last Admin: 11/14/23 08:39 Dose: 100 mg Documented By: DANDRE Heparin Sodium (Porcine) (Heparin Sodium,Porcine 5,000 Unit/Ml Vial) 5,000 unit SUBCUT Q8H [facility] Last Admin: 11/14/23 05:54 Dose: 5,000 unit Documented By: ALINA Ceftriaxone Sodium 1 gm/ (Sodium Chloride) 50 mls @ 100 mls/hr IV Q24H [facility] Last Infusion: 11/13/23 20:28 Dose: Infused Documented By: ALINA Melatonin (Melatonin 3 Mg Tablet) 6 mg PO BEDTIME PRN PRN Reason: Insomnia Ondansetron HCl (Ondansetron Hcl 4 Mg/2 Ml Vial) 4 mg IVPUSH Q8H PRN PRN Reason: Nausea and Vomiting Last Admin: 11/12/23 01:24 Dose: 4 mg Documented By: LEATHA Sodium Chloride (0.9 % Sodium Chloride Flush 3 Ml Syringe) 3 ml IVFLUSH QSHIFT [facility] Last Admin: 11/14/23 07:15 Dose: 3 ml Documented By: DANDRE Labs 11/13/23 09:02 11/13/23 09:02 Labs: Laboratory Results - last 24 hr 11/13/23 09:02 MCV 87.7 MCH 30.6 MCHC 34.9 RDW 12.8 Plt Count 171 MPV 11.0 Absolute Nucleated RBC 0.000 Nucleated RBC % (auto) 0.0 Anion Gap 13 Estim Creat Clear Calc 48.7 Estimated GFR 57 Random Glucose 200 H Calcium 8.9 Microbiology Microbiology Results: Microbiology 11/11/23 20:36 Blood Culture - Final Blood - Venous Escherichia coli 11/11/23 20:30 Blood Culture - Preliminary Blood - Venous No growth after 48 hours. 11/11/23 19:33 Urine Culture - Final Urine clean catch - Clean Catch Midstream Escherichia coli Assessment and Plan (1) UTI (urinary tract infection): Status: Acute (2) Pyelonephritis: Status: Acute Plan 68 y/o woman admitted with Pyelonephritis Ecoli bacteremia, Ecoli UTI 1/2 positive continue Rocephin fevers overnight Pyelonephritis. s/p IV fluids Continue ceftriaxone. Lyme disease testing ordered and pending Hypokalemia repleted and resolved Metabolic alkalosis, contraction. Resolved Due to dehydration. s/p IV fluids. Acute kidney injury. Resolved Secondary to poor p.o. intake and febrile disease. s/p IV fluids. Continue to monitor renal function. Hydrochlorothiazide on hold. Avoid nephrotoxic agents. Essential hypertension. stop HCTZ and change to lisinopril DVT prophylaxis: Heparin Attending Dr. Torres Code status: Full Quality Stroke Does the patient have a stroke diagnosis?: No VTE Prior VTE?: No VTE Risk Level:: Medical - moderate - high VTE Device Contraindication: Treatment Not Indicated VTE Drug Contraindication: N/A - Med Ordered
[2023-11-14] MEDS: hydroCHLOROthiazide 25 MG TABLET PO (11:33)
[2023-11-14 15:33] VITALS: BP 103/54; PULSE 68; RESP 18; TEMP 36.4; O2SAT 98
--- NOTE | 2023-11-14 16:23 | W.PM.IDCN ---
History of Present Illness Data of Consult Service Date: 11/14/23 Requesting physician: Magdalena Sam Primary Care Provider: Willow Murphy MD HPI Reason for consult: E coli bacteremia,sepsis She presents with fever for four days as well as chills. She reports that she had weakness. She has no specific abdominal discomfort but some bilateral flank discomfort. She has no diarrhea. Blood cultures 11/10 1/ E coli as is urine. She has had left renal probable infarct,pyelonephritis. CXR is negative. She says she had blood test in [place] shows Lyme disease that she requested apparently as routine although no specific tick bites mentioned. PMFSH Past Medical History Medical History Pyelonephritis Pelvic pain in female BONIFACIO I (cervical intraepithelial neoplasia I) Impaired glucose tolerance Right elbow pain Vitamin D insufficiency Dyslipidemia Vitamin D deficiency GERD (gastroesophageal reflux disease) Hypercholesterolemia Hypertension Family History Family History Father Lung cancer Mother Stroke Hypertension Family history: reviewed and not pertinent Surgical History Surgical History Hx of colonoscopy H/O right breast biopsy Social History Social History Household Members: None Housing: House Do you presently have visiting nurse or other home services: No Alcohol intake: never Patient Tobacco Use Status: Former Tobacco user Tobacco use type: Cigarette Smoked in Last 30 Days: No e-Cigarette/Vaping Use: Never Used Second Hand Smoke Exposure: No Use of substances other than those prescribed or required for medical reasons: No Currently Displaying Signs/Symptoms of Drug Intoxication Withdrawal: No Have you been hit, kicked, punched, or otherwise hurt by someone within the past year? If so, by whom?: No Do you feel safe in your current relationship?: Yes Is there a partner from a previous relationship who is making you feel unsafe now?: No Are you made to feel afraid or neglected: No Advance Directives: No Advance Directives Information Provided: No Do you have a plan to hurt others: No Plan Recently lost weight without trying: No Eating poorly because of decreased appetite: No Nutrition Risks: No Nutritional Risk Patient : No : No Poor oral hygiene: No service: No Current occupational status: employed Current occupational exposures/hazards: No Sexual orientation: Straight/Heterosexual Gender identity: Female Cognitive needs: No Hearing needs: No Vision needs: Yes Meds Allergies Allergy/AdvReac Type Severity Reaction Status Date / Time bee pollen [BEE STINGS] Allergy Intermediate Swelling Verified 11/11/23 19:18 Active Medications: Current Medications Acetaminophen (Acetaminophen 325 Mg Tablet) 975 mg PO Q6H PRN PRN Reason: Pain, Mild (Pain Scale 1-3), fever or headache Last Admin: 11/13/23 17:44 Dose: 975 mg Atorvastatin Calcium (Atorvastatin Calcium 10 Mg Tablet) 10 mg PO DAILY [facility] Last Admin: 11/14/23 08:39 Dose: 10 mg Doxycycline Monohydrate (Doxycycline Monohydrate 100 Mg Capsule) 100 mg PO BID [facility] Last Admin: 11/14/23 08:39 Dose: 100 mg Heparin Sodium (Porcine) (Heparin Sodium,Porcine 5,000 Unit/Ml Vial) 5,000 unit SUBCUT Q8H [facility] Last Admin: 11/14/23 13:32 Dose: 5,000 unit Hydrochlorothiazide (Hydrochlorothiazide 25 Mg Tablet) 25 mg PO DAILY [facility]; Protocol Last Admin: 11/14/23 11:33 Dose: 25 mg Ceftriaxone Sodium 1 gm/ (Sodium Chloride) 50 mls @ 100 mls/hr IV Q24H [facility] Last Infusion: 11/13/23 20:28 Dose: Infused Melatonin (Melatonin 3 Mg Tablet) 6 mg PO BEDTIME PRN PRN Reason: Insomnia Ondansetron HCl (Ondansetron Hcl 4 Mg/2 Ml Vial) 4 mg IVPUSH Q8H PRN PRN Reason: Nausea and Vomiting Last Admin: 11/12/23 01:24 Dose: 4 mg Sodium Chloride (0.9 % Sodium Chloride Flush 3 Ml Syringe) 3 ml IVFLUSH QSHIFT [facility] Last Admin: 11/14/23 13:34 Dose: 3 ml Home Medications ?Medication ?Instructions ?Recorded ?Confirmed ?Last Taken ?Type biotin 1 mg tablet 1 mg PO DAILY 11/12/23 11/12/23 11/10/23 History ondansetron 4 mg disintegrating 4 mg PO Q8H PRN Nausea And Vomiting 11/12/23 11/12/23 11/10/23 History tablet Physical Exam Vital Signs: Vital Signs: Last Vital Signs Temp 97.6 F 11/14/23 15:33 Pulse 68 11/14/23 15:33 Resp 18 11/14/23 15:33 BP 103/54 L 11/14/23 15:33 Pulse Ox 98 11/14/23 15:33 O2 Del Method Room Air 11/14/23 15:33 BMI result Body Mass Index 24.5 Const: General: cooperative HEENT: Head: Yes normal to inspection Face and sinus: Yes normal facial exam Mouth: Normal oral and palatal mucosa present Teeth and gingiva: dentition normal Eyes: General: appearance normal, both eyes and all related structures Pupils: Equal, round and reactive pupils present Resp: Effort & Inspection: normal respiratory effort Cardio: Rate: regular rate Rhythm: regular rhythm GI: Palpation (GI): Soft to palpation and nontender : General: Yes no CVA tenderness Back/Spine/Pelvis: Back: no CVA tenderness Skin: General skin exam: no rashes or lesions noted Neuro: General: moves all extremities Cranial nerves: Yes Equal, round and reactive pupils present Extrem: General: Yes normal to inspection Psych: Appearance: grossly normal Results Labs 11/13/23 09:02 11/13/23 09:02 Microbiology Microbiology Results: Microbiology 11/11/23 20:36 Blood - Venous Blood Culture - Final Escherichia coli 11/11/23 20:30 Blood - Venous Blood Culture - Preliminary No growth after 48 hours. 11/11/23 19:33 Urine clean catch - Clean Catch Midstream Urine Culture - Final Escherichia coli Assessment and Plan (1) Pyelonephritis: Status: Acute (2) PRO (acute kidney injury): Status: Acute (3) UTI (urinary tract infection): Qualifiers: Urinary tract infection type: acute pyelonephritis Qualified Code(s): N10 - Acute pyelonephritis Status: Acute (4) Fever: Status: Acute Plan She has E coli pyelonephritis She has fairly sensitive organism She has no obstruction but possible renal infarct. Would continue Ceftriaxone and switch to po cephalosporin total 14 days antibiotics. Would stop Doxycycline as no signs of Lyme disease.
[2023-11-14 19:41] VITALS: BP 135/63; PULSE 66; RESP 18; TEMP 36.4; O2SAT 99
[2023-11-14] MEDS: cefTRIAXone sodium 1 GM in 0.9 % Sodium Chloride 50 ML IV (20:11)
[2023-11-14 22:43] LABS: Lyme Abs Screen <0.90 index
[2023-11-14 23:43] LABS: A. Phagocytphilium DNA,RT-PCR NOT DETECTED (NOT DETECTED); Babesia Microti DNA, RT-PCR NOT DETECTED (NOT DETECTED); Borrelia Miyamotoi,DNA RT-PCR NOT DETECTED (NOT DETECTED); E.Chaffeensis DNA RT-PCR NOT DETECTED (NOT DETECTED); Lyme(Borrelia ssp)DNA RT-PCR NOT DETECTED (NOT DETECTED)
[2023-11-15 03:52] VITALS: BP 142/67; PULSE 63; RESP 16; TEMP 36.8; O2SAT 97
[2023-11-15] MEDS: Heparin Sodium,Porcine 5,000 UNIT/ML VIAL 5000 UNIT SUBCUT (05:31)
[2023-11-15 07:34] VITALS: BP 139/63; PULSE 70; RESP 17; TEMP 36; O2SAT 94
[2023-11-15] MEDS: Atorvastatin Calcium 10 MG TABLET PO (08:27)
[2023-11-15] MEDS: Doxycycline Monohydrate 100 MG CAPSULE PO (08:27)
[2023-11-15] MEDS: hydroCHLOROthiazide 25 MG TABLET PO (08:27)
[2023-11-15] MEDS: 0.9 % Sodium Chloride Flush 3 ML SYRINGE IVFLUSH (08:27)
--- NOTE | 2023-11-15 10:47 | PM.DS ---
DS: Providers Provider Date of Service: 11/15/23 Date of admission: 11/12/23 00:56 Primary care physician: Willow Murphy MD Consults: 11/14/23 11:04 Consult to Infectious Diseases Routine Consulting Provider: [facility] Reason for consultation: ecoli bacteremia DS: Diagnosis Discharge Diagnosis (1) Pyelonephritis: Status: Acute (2) PRO (acute kidney injury): Status: Acute (3) UTI (urinary tract infection): Status: Acute (4) Fever: Status: Acute DS: Summary Hospital Course Hospital Course: History of presenting illness: Date of Service: 11/12/23 Attending physician on admission: Hebert Andrews Chief Complaint: Headache, fever and chills Jazmyn Narvaez this is a 68 years old woman with past medical history significant for hypertension on hydrochlorothiazide presents to the emergency department complaining of bilateral leg pain diastolic associated with fever and chills. She also reported generalized headache, fatigue and nausea without episodes of vomiting. She denied any sore throat, ear pain, cough, shortness of breath, abdominal pain or any acute urinary changes. Denied any rash. She stated that she has been taking Tylenol as needed. Patient mentioned that on June of this year she was found to have a tick inside her left ear. It is unclear to me if the patient was tested for Lyme or tested for Lyme disease. Denied tobacco smoking, alcohol abuse or illicit drug use. In the ED, she was found to have stable vital signs. Blood workup showed leukocytosis of 12.0, hemoglobin and platelets are normal. There is no lactic acidosis. There are no significant electrolyte imbalances. Chloride is 93. CO2 is 30. Anion gap is normal and BUN is 25. Creatinine is 1.37. LFTs are normal. Total bilirubin is 1.5. Urinalysis consistent with urinary tract infection, microscopic hematuria and proteinuria. Viral testing for influenza, RSV and COVID is negative. Abdominal pelvis CT scan showed finding likely consistent with multifocal bacterial nephritis/pyelonephritis along with renal infarcts. CXR is negative. ED tx: NS bolus 2 L, ceftriaxone 1 g IV, doxycycline 100 mg p.o. Hospital course: 68-year-old patient with past medical history of hypertension presented to [facility] due to symptoms of fever chills, generalized fatigue, nausea, and headache, patient had no urinary symptoms however urinalysis was positive for UTI, abdominal and pelvic CT scan showed findings consistent with pyelonephritis along with renal infarction, patient admitted to hospital with a diagnosis of acute pyelonephritis associated with the PRO and metabolic alkalosis, treated with IV fluids and IV antibiotics, urine and blood culture grew pansensitive E coli, treated with IV ceftriaxone with good response, renal function returned back to normal, all symptoms of weakness, headache ,and nausea resolved, therefore she is being discharged home to finish a total 14 day course of Ceftin patient is recommended to rest and drink plenty of fluids. Time Attestation Discharge Coordination Time (in mins): 36 Quality: Safe Use of Opioids Does Pt have an Active Cancer Diagnosis on the Problem List?: No Quality: Stroke Does the patient have a stroke diagnosis?: No Physical Exam Vital Signs: Vital Signs: Last Vital Signs Temp 96.8 F 11/15/23 07:34 Pulse 70 11/15/23 07:34 Resp 17 11/15/23 07:34 BP 139/63 11/15/23 07:34 Pulse Ox 94 11/15/23 07:34 O2 Del Method Room Air 11/15/23 07:34 BMI result Body Mass Index 24.5 Const: Other: General awake alert x3, in no acute distress. Neck no JVD. CVS regular rate rhythm, Respiratory lungs clear to auscultation, no respiratory distress, no wheeze, no rhonchi. Gastrointestinal abdomen soft, non tender, bowel sounds audible Extremities no edema. Neuro non focal Skin no rash Psych appropriate affect DS: Data Data Completed and Pending Labs on day of discharge: Laboratory Results - last 24 hr 11/11/23 19:27 A.phagocytophil DNA PCR NOT DETECTED Babesia microti DNA PCR NOT DETECTED Borrelia sp DNA (PCR) NOT DETECTED Lyme Screen IgG & IgM <0.90 Borrelia miyamotoi (PCR) NOT DETECTED E.chaffeensis DNA (PCR) NOT DETECTED Tick-borne Disease PCR SEE NOTE Preliminary micro results at discharge 11/11/23 20:30 Blood Culture - Preliminary Blood - Venous No growth after 48 hours. Discharge Plan Discharge Anticipated Discharge Date/Time: 11/15/23 10:36 Patient Disposition: Home, Self-Care Discharge Diagnosis: E coli bacteremia due to acute pyelonephritis Referrals: Willow Hill MD [Primary Care Provider] - 2 days Discharge Medications: New cefuroxime axetil 500 mg tablet 500 mg PO Q12H Qty: 22 0RF Continued cholecalciferol (vitamin D3) 25 mcg (1,000 unit) capsule 25 mcg PO DAILY 90 Days Qty: 90 1RF simvastatin 10 mg tablet 10 mg PO BEDTIME 90 Days Qty: 90 1RF hydrochlorothiazide 25 mg tablet 25 mg PO DAILY 90 Days Qty: 90 1RF ondansetron 4 mg tablet,disintegrating 4 mg PO Q8H PRN (Reason: Nausea And Vomiting) biotin 1 mg Tablet 1 mg PO DAILY Discharge Orders: Discharge Order (Routine); Ordered 11/15/23 Ordered By: Cassandra Tinoco Diet: Advance to usual diet Activity on Discharge: As tolerated Stand Alone Forms: Patient Portal Discharge page, Work/School Release Print Language: Citizen Of [place] Activity Restrictions/Additional Instructions: Take your medications as prescribed. If you were prescribed antibiotics today, it is important that you take your medication to their entirety, do not skip any doses, do not finish them early. Care Plan Goals: Take Ceftin 1 tablet twice daily starting today for total knee 11 days Drink fluids/rest Health Concerns: Continue all home medications Plan of Treatment: Outpatient follow-up with primary care physician call for appointment Assessment: As above Patient Instructions: Urinary Tract Infection in Women (ED), Fever in Adults (ED)
--- NOTE | 2023-11-15 10:50 | MHC.CM.PN ---
IMM 11/15/23 Patient is discharged to home with family support and transport.
== END 2023-11-15 11:54 | disposition home or self-care (01) | DRG 690 ==
LOC: HO.ED 23:54 → HO.EDOVER 11-12 01:03 → HO.S3 11-12 07:44
PROVIDERS: Nurse Practitioner Acute Care; Nurse Practitioner Family; Physician Assistant; Admitting Provider Internal Medicine; Emergency Provider Emergency Medicine Emergency Medical Services; PCP Internal Medicine; Visit Provider Hospitalist
DX: N10 Acute pyelonephritis (principal); E87.3 Alkalosis; R78.81 Bacteremia; N17.9 Acute kidney failure, unspecified; E86.0 Dehydration; B96.20 Unspecified Escherichia coli [E. coli] as the cause of diseases classified elsewhere; I10 Essential (primary) hypertension; E87.6 Hypokalemia; Z20.822 Contact with and (suspected) exposure to COVID-19; Z87.891 Personal history of nicotine dependence; Z79.899 Other long term (current) drug therapy
CPT/HCPCS: 0241U; 36415; 71045; 74177; 80048; 80053; 81001; 83605; 83690; 83735; 85025; 85027; 86617; 86618; 87040; 87077; 87086; 87088; 87186; 87205; 87468; 87469; 87478; 87484; 87798; 99285; J0696; J1644; J2405; J3480; J7120; Q9967

== ENCOUNTER → 2023-11-12 00:56 | Outpatient (BNV) | payer MEDICARE, SELFPAY | PROVIDERS: Admitting Provider Internal Medicine; Emergency Provider Emergency Medicine Emergency Medical Services; PCP Internal Medicine; Visit Provider Internal Medicine | DX: N12 Tubulo-interstitial nephritis, not specified as acute or chronic (principal); N17.9 Acute kidney failure, unspecified; N10 Acute pyelonephritis; R50.9 Fever, unspecified | CPT/HCPCS: 99222 ==

== ENCOUNTER → 2023-11-12 00:56 | Outpatient (BNV) | payer MEDICARE, SELFPAY | PROVIDERS: Admitting Provider Internal Medicine; Emergency Provider Emergency Medicine Emergency Medical Services; PCP Internal Medicine; Visit Provider Internal Medicine | DX: N12 Tubulo-interstitial nephritis, not specified as acute or chronic (principal); N17.9 Acute kidney failure, unspecified; N10 Acute pyelonephritis; R50.9 Fever, unspecified | CPT/HCPCS: 99223; 99232; 99239; 99499 ==

== ENCOUNTER 2023-11-24 08:55 | Outpatient (AMB) | payer MEDICARE, SELFPAY ==
--- NOTE | 2023-11-24 09:08 | A.OFFPC_ITS ---
Vital Signs 11/24/23 09:11 Height 5 ft 4 in Weight 141 lb BMI 24.2 BP 142/72 H Blood Pressure Location Lt brachial Position Sitting Pulse 73 Pulse Source Pulse Oximeter Pulse Oximetry (%) 98 Oxygen Delivery Method Room Air Intake Visit Reasons: [facility] [place]14 Allergies bee pollen [BEE STINGS] Allergy (Intermediate, Verified 11/11/23 19:18) Swelling Tobacco use date assessed: 05/29/23 Dental Screening Dental Screen Date: 05/29/23 HPI TCM TCM Information Date of Discharge 11/15/23 Discharged From [facility] Interactive Contact Date (Reference documentation from this date) 11/16/23 HPI Comments History of Present Illness Details 68 y/o female patient who presents to [facility] for HDF. Patient was admitted at [facility] on 11/12/23 due to Pyelonephritis and discharged home 11/15/23 on Oral Abx. Today patient asking to repeat Blood work to check if infection is gone. Denies fevers, chills, nausea or vomiting. [facility] Medical History Pyelonephritis Pelvic pain in female BONIFACIO I (cervical intraepithelial neoplasia I) Impaired glucose tolerance Right elbow pain Vitamin D insufficiency Dyslipidemia Vitamin D deficiency GERD (gastroesophageal reflux disease) Hypercholesterolemia Hypertension Surgical History Hx of colonoscopy H/O right breast biopsy Family History Father Lung cancer Mother Stroke Hypertension Social History Household Members: None Housing: House Do you presently have visiting nurse or other home services: No Alcohol intake: never Patient Tobacco Use Status: Former Tobacco user Tobacco use type: Cigarette e-Cigarette/Vaping Use: Never Used Second Hand Smoke Exposure: No service: No Current occupational status: employed Current occupational exposures/hazards: No Sexual orientation: Straight/Heterosexual Gender identity: Female Cognitive needs: No Hearing needs: No Vision needs: Yes Questionnaire Thrive Questionnaire Date Thrive assessed: 11/12/23 Are you currently unemployed and looking for a job?: No SALONI-7 AMB Questionnaire SALONI-7 Date SALONI - 7 assessed: 05/29/23 Source: Developed by Drs. Alex Godinez, Mariah Chen, Jeff Junior and colleagues, with an educational cristobal from [employer]. Review of Systems Const All systems reviewed & are unremarkable except as noted in HPI and below Physical exam (Primary Care) Vital Signs: Last Vital Signs Pulse 73 11/24/23 09:11 BP 142/72 H 11/24/23 09:11 Pulse Ox 98 11/24/23 09:11 Oxygen Delivery Method Room Air 11/24/23 09:11 BMI result Body Mass Index 24.2 Tobacco/Smoking Status: Tobacco use Status Tobacco use date assessed 05/29/23 11/24/23 09:08 Patient Tobacco Use Status Former Tobacco user 11/24/23 09:08 Tobacco use type Cigarette 11/24/23 09:08 e-Cigarette/Vaping Use Never Used 11/24/23 09:08 Thrive Assessment: Date of Thrive Assessment Date Thrive assessed 11/12/23 11/24/23 09:08 Const General: cooperative and no acute distress Orientation/consciousness: patient oriented x3 HENMT Head: Yes normocephalic General: Yes no CVA tenderness Back/Spine/Pelvis Back: no CVA tenderness Skin General skin exam: no rashes or lesions noted Neuro General: patient oriented x3, gait normal and moves all extremities Psych Speech and movement: Normal speech and movement present Assessment and Plan Assessment & Plan (1) Pyelonephritis: Code(s): N12 - Tubulo-interstitial nephritis, not specified as acute or chronic Plan: Currently taking Antibiotics. Will order CBC per Pt's request. F/U with PCP. Coding Level of Care Code TCM Mod MDM <= 7 Days Diagnoses Pyelonephritis N12 Time Spent (min) 20 Comment Spent reviewing hospital notes and patient education.
[2023-11-24 09:11] VITALS: BP 142/72; PULSE 73; O2SAT 98; BMI 24.2
== END 2023-11-24 10:40 | disposition home or self-care (01) ==
PROVIDERS: PCP Internal Medicine; Visit Provider Nurse Practitioner Family
DX: N12 Tubulo-interstitial nephritis, not specified as acute or chronic (principal)

== ENCOUNTER → 2023-11-24 08:55 | Outpatient (BNVA) | payer MEDICARE, SELFPAY | PROVIDERS: PCP Internal Medicine; Visit Provider Nurse Practitioner Family | DX: N12 Tubulo-interstitial nephritis, not specified as acute or chronic (principal) | CPT/HCPCS: 99212 ==

== ENCOUNTER 2023-12-12 15:50 | Outpatient (REF) | payer MEDICARE, SELFPAY ==
[2023-12-12 16:01] LABS: MANUAL DIFF FLAG NO
[2023-12-12 17:15] LABS: Basophils Percent Auto 0.7 % (0-2); Eosinophils Absolute Auto 0.2 X10*3/uL (0.0-0.4); Eosinophils Percent Auto 3.6 % (0-4); Hematocrit 37.3 % (37.0-47.0); Hemoglobin 12.7 g/dl (12.0-16.0); Imm Gran Abs Auto 0.02 X10*3/uL (0.00-0.03); Imm Gran Pct Auto 0.3 % (0.0-0.4); Lymphocytes Absolute Auto 2.1 X10*3/uL (1.2-4.9); Lymphocytes Percent Auto 34.3 % (20-40); Mean Corpuscular Hemoglobin 30.2 pg (27.0-33.0); Mean Corpuscular Volume 88.6 fL (80.0-98.0); Mean Platelet Volume 10.7 fL (9.4-12.3); Monocytes Absolute Auto 0.6 X10*3/uL (0.1-1.2); Monocytes Percent Auto 9.1 % (2-11); Neutrophils Absolute Auto 3.2 x10*3/uL (2.0-8.3); Platelet Count 214 X10*3/uL (160-400); Red Blood Count 4.21 X10*6/uL (4.20-5.50); Red Cell Distribution Width 13.1 % (11.0-16.0); White Blood Count 6.1 X10*3/uL (4.8-10.8)
== END 2023-12-12 15:51 | disposition home or self-care (01) ==
LOC: HO.LAB 15:50
PROVIDERS: PCP Internal Medicine; Visit Provider Nurse Practitioner Family
DX: N10 Acute pyelonephritis (principal); N12 Tubulo-interstitial nephritis, not specified as acute or chronic
CPT/HCPCS: 36415; 85025

== ENCOUNTER 2024-03-04 16:35 | Outpatient (AMB) | payer MEDICARE, SELFPAY ==
--- NOTE | 2024-03-04 16:38 | A.OFFPC_ITS ---
Vital Signs 03/04/24 16:41 Height 5 ft 4 in Weight 149 lb 6 oz BMI 25.6 BP 158/80 H Blood Pressure Location Lt brachial Position Sitting Pulse 72 Pulse Source Pulse Oximeter Pulse Oximetry (%) 99 Oxygen Delivery Method Room Air Intake Visit Reasons: Rsch - from 09/26 - BP -Glucose Wage And Salary Specialist Required: No Accompanied by: Self / Same As Patient Allergies bee pollen [BEE STINGS] Allergy (Intermediate, Verified 03/04/24 16:53) Swelling Medication List - Last Reconciled 03/04/24 by Willow Murphy MD biotin 1 mg PO DAILY cefuroxime axetil 500 mg PO Q12H cholecalciferol (vitamin D3) 25 mcg PO DAILY 90 days hydrochlorothiazide 25 mg PO DAILY 90 days ondansetron 4 mg PO Q8H PRN simvastatin 10 mg PO BEDTIME 90 days Tobacco use date assessed: 03/04/24 Fall risk assessment: No Falls in past year Last assessed Fall Risk: 03/04/24 Dental Screening Dental Screen Date: 03/04/24 Did you have a dental visit in the last 12 months?: Yes Did you have a dental problem in the last 6 months where you did not have access to dental care?: No Was dental information given to patient?: Patient has dentist HPI HPI Comments History of Present Illness Details The patient is a 68-year-old female presenting with complaints of oral lesion and concerns about elevated blood pressure. Initially noted after recent dental procedures, the patient describes the lesions as red and bumpy, affecting the tongue and gum, and persisting despite antibiotic treatment. The lesions have raised concerns for further evaluation by an ear, nose, and throat specialist. Past medical history is significant for a hospitalization due to pyelonephritis in October, essential hypertension, and hyperlipidemia. The patient is adherent to a medication regimen that includes hydrochlorothiazide and simvastatin. Previous colonoscopy showed a tubular adenoma. [facility] Medical History (Updated 03/04/24 @ 17:01 by Willow Murphy MD) Pyelonephritis Pelvic pain in female BONIFACIO I (cervical intraepithelial neoplasia I) Impaired glucose tolerance Right elbow pain Vitamin D insufficiency Dyslipidemia Vitamin D deficiency GERD (gastroesophageal reflux disease) Hypercholesterolemia Hypertension Surgical History Hx of colonoscopy H/O right breast biopsy Family History Father Lung cancer Mother Stroke Hypertension Social History Household Members: None Housing: House Do you presently have visiting nurse or other home services: No Alcohol intake: never Patient Tobacco Use Status: Former Tobacco user Tobacco use type: Cigarette e-Cigarette/Vaping Use: Never Used Second Hand Smoke Exposure: No service: No Current occupational status: employed Current occupational exposures/hazards: No Sexual orientation: Straight/Heterosexual Gender identity: Female Cognitive needs: No Hearing needs: No Vision needs: Yes Questionnaire PHQ-9 Over the last 2 weeks, how often have you been bothered by any of the following problems? 1. Little interest or pleasure in doing things: not at all 2. Feeling down, depressed, or hopeless: not at all 3. Trouble falling or staying asleep, or sleeping too much: not at all 4. Feeling tired or having little energy: not at all 5. Poor appetite or overeating: not at all 6. Feeling bad about yourself - or that you are a failure or have let yourself or your family down: not at all 7. Trouble concentrating on things, such as reading the newspaper or watching television: not at all 8. Moving or speaking so slowly that other people could have noticed. Or the opposite - being so fidgety or restless that you have been moving around a lot more than usual: not at all 9. Thoughts that you would be better off or of hurting yourself in some way: not at all Total score: 0 Depression Screening Interpretation: Negative Depression Screening Done: Yes 05211 - PHQ-9 Billing: Yes Source: Developed by Drs. Alex Godinez, Mariah Chen, Jeff Junior and colleagues, with an educational cristobal from [employer]. Thrive Questionnaire Date Thrive assessed: 03/04/24 I am a: Patient What is your living situation today?: I have a steady place to live Within the past 12 months, did the food you bought not last and you didn't have the money to get more?: Never true Within the past 12 months, did you worry whether your food would run out before you got money to buy more?: Never true Do you have trouble paying for medicines?: No Do you have trouble getting transportation to medical appointments?: No Do you have trouble paying your heating and electricity bill?: No Do you have trouble taking care of your child, family member or friend?: No Do you have trouble with day-to-day activities such as bathing, preparing meals, shopping, managing finances, etc.?: No Are you currently unemployed and looking for a job?: No Are you interested in more education?: No Please select the resources that you would like help with: None Currently or been in a relationship where the following occur: No concerns reported THRIVE Score: 0 AUDIT C Alcohol Use Questionnaire (AUDIT-C) 1. How often do you have a drink containing alcohol?: Never 3. How often do you have six or more drinks on one occasion?: Never Total Score: 0 Score Reviewed/Action Taken: No SALONI-7 AMB Questionnaire SALONI-7 Date SALONI - 7 assessed: 03/04/24 Feeling nervous, anxious, or on edge: 0 = Not at all Not being able to stop or control worryin = Not at all Worrying too much about different things: 0 = Not at all Trouble relaxin = Not at all Being so restless that it is hard to sit still: 0 = Not at all Becoming easily annoyed or irritable: 0 = Not at all Feeling afraid as if something awful might happen: 0 = Not at all Total SALONI-7 score (0-4 normal; 5-9 mild; 10-14 moderate; 15-21 severe): 0 Source: Developed by Drs. Alex Godinez, Mariah Chen, Jeff Junior and colleagues, with an educational cristobal from [employer]. SALONI-7 Assessment Billing SALONI-7 Assessment Tool: SALONI-7 Assessment 27551 Review of Systems Const All systems reviewed & are unremarkable except as noted in HPI and below ENT Reports other (tongue lesion) Card Denies chest pain at rest, Denies chest pain with activity, Denies edema, Denies irregular heart rhythm, Denies claudication, Denies dyspnea, Denies dyspnea on exertion, Denies orthopnea, Denies paroxysmal nocturnal dyspnea and Denies slow heart rate Resp Denies cough, Denies dyspnea and Denies dyspnea on exertion GI Denies abdominal pain, Denies change in bowel habits, Denies excessive flatus, Denies nausea and Denies vomiting Physical exam (Primary Care) Vital Signs: Last Vital Signs Pulse 72 03/04/24 16:41 BP 158/80 H 03/04/24 16:41 Pulse Ox 99 03/04/24 16:41 Oxygen Delivery Method Room Air 03/04/24 16:41 BMI result Body Mass Index 25.6 Tobacco/Smoking Status: Tobacco use Status Tobacco use date assessed 03/04/24 03/04/24 16:45 Patient Tobacco Use Status Former Tobacco user 03/04/24 16:38 Tobacco use type Cigarette 03/04/24 16:38 e-Cigarette/Vaping Use Never Used 03/04/24 16:38 PHQ-9: PHQ-9 Score PHQ-9: Total score 0 03/04/24 17:05 Depression Screening Interpretation: Negative Thrive Assessment: Date of Thrive Assessment Date Thrive assessed 03/04/24 03/04/24 16:45 Currently or been in a relationship where the following occur: No concerns reported HENMT Other: tongue lesion Resp Effort & Inspection: normal respiratory effort Auscultation: clear to auscultation bilaterally Cardio Jugular venous distension: no JVD Rate: regular rate Rhythm: regular rhythm Heart sounds: S1 normal heart sound present and S2 normal heart sound present Extrem General: Yes full ROM Coding Level of Care Code Est Pt Level 4 (05407) Complex EM visit Add On G2211 Diagnoses Tongue lesion K14.8 Benign essential hypertension I10 Pure hypercholesterolemia E78.00 Hypovitaminosis D E55.9 Additional Codes SALONI-7 Assessment Billing - SALONI-7 Assessment Tool: SALONI-7 Assessment 27245 ([id number]) PHQ-9 - 17505 - PHQ-9 Billing: Yes ([id number]) Time Spent (min) 21 Assessment & Plan Assessment & Plan (1) Tongue lesion: Code(s): K14.8 - Other diseases of tongue Category: Medical (2) Benign essential hypertension: Code(s): I10 - Essential (primary) hypertension Category: Medical (3) Pure hypercholesterolemia: Code(s): E78.00 - Pure hypercholesterolemia, unspecified Category: Medical (4) Hypovitaminosis D: Code(s): E55.9 - Vitamin D deficiency, unspecified Category: Medical Plan - Arrange referral to ENT specialist, Dr. Alex Crocker, for evaluation of oral lesions. - Blood pressure management: monitor and consider adjusting antihypertensive therapy. - Follow-up blood tests to assess renal function, random blood glucose levels, and lipid profile. - Schedule mammography for routine cancer screening. - Track blood pressure readings at home with a phone consultation follow-up in three weeks. - Note to verify patient's insurance coverage for upcoming consultations. Patient was informed and verbally consented to the use of an ambient scribe for clinic note documentation during this visit. During the visit, I discussed with the patient the necessity of an urgent ENT consultation for adequate evaluation and possible biopsy of the oral lesion. Emphasized the importance of monitoring blood pressure, given the current elevated readings. Advised laboratory tests to reassess renal function and blood glucose due to prior pyelonephritis and hyperglycemia. We also discussed rescheduling a mammogram and endorsed continuity of colon cancer surveillance following her history of tubular adenoma. The patient expressed concerns over healthcare costs which I acknowledged, advising her on steps to ensure coverage for assessments. Orders: Orders Lipid Panel Today E78.5 - Hyperlipidemia, unspecified Vitamin D 25-OH Total Today E55.9 - Vitamin D deficiency, unspecified Comprehensive [place]. Panel Fast Today I10 - Essential (primary) hypertension MM tomosynthesis screening BI Today Z12.31 - Encounter for screening mammogram for malignant neoplasm of breast Referrals Ear/Nose/Throat Referral K14.8 - Other diseases of tongue Patient Instructions: - Schedule an appointment with ENT for lesion evaluation. - Monitor your blood pressure at home, record readings, and follow up by phone in three weeks. - Schedule and attend upcoming blood tests. - Continue adherence to current medication regimen and monitor symptoms. - Ensure insurance covers necessary appointments to prevent unexpected charges. - Follow through with referrals for mammography and ENT visit. - Seek medical attention sooner if lesions worsen or new symptoms develop.
[2024-03-04 16:41] VITALS: BP 158/80; PULSE 72; O2SAT 99; BMI 25.6
== END 2024-03-04 17:10 | disposition home or self-care (01) ==
PROVIDERS: PCP Internal Medicine; Visit Provider Internal Medicine
DX: K14.8 Other diseases of tongue (principal); I10 Essential (primary) hypertension; E78.00 Pure hypercholesterolemia, unspecified; E55.9 Vitamin D deficiency, unspecified

== ENCOUNTER → 2024-03-04 16:35 | Outpatient (BNVA) | payer MEDICARE, SELFPAY | PROVIDERS: PCP Internal Medicine; Visit Provider Internal Medicine | DX: K14.8 Other diseases of tongue (principal); I10 Essential (primary) hypertension; E78.00 Pure hypercholesterolemia, unspecified; E55.9 Vitamin D deficiency, unspecified | CPT/HCPCS: 96127; 99212 ==

== ENCOUNTER 2024-03-15 14:02 | Outpatient (REF) | payer MEDICARE, SELFPAY | END 2024-03-15 14:03 | disposition home or self-care (01) | LOC: HO.MAMMO 14:02 | PROVIDERS: PCP Internal Medicine; Visit Provider Internal Medicine | DX: Z12.31 Encounter for screening mammogram for malignant neoplasm of breast (principal) | CPT/HCPCS: 77063; 77067 ==

== ENCOUNTER 2024-06-29 10:26 | Outpatient (REF) | payer MEDICARE, SELFPAY ==
--- OUTSIDE RECORDS SUMMARY | 2024-06-29 10:29 | XMS_ITS | Data Portability ---
Author Organization [place] - [facility], Allergy Address [address] [place] [id number] Care Team Providers Care Director Product Development Name Role Phone DIEGO GARCIA Referring Provider [phone] ELLEN CAPPS Primary Care Provider Assessment No assessment recorded. Plan of Treatment Reminders Order Date Submit Date Provider Last Modified By Organization Details Last Modified Time Details Appointments Establish ed 30 2024 04:00P M TRACEE Wylie MD Not available Not available Not available Lab None recorded. Referral None recorded. Procedures None recorded. Surgeries None recorded. Imaging None recorded. Medication Orders None recorded. Patient TargetsNo targets recorded. Patient InstructionsNo instructions recorded. Reason for Referral None Reported. Problems Name Problem SNOMED Code Status Onset Date Resolution Date Notes Provider Name and Address Organization Details Recorded Time Tension-t ype headache 596182530 Active 2018 Tension headache NOS; Note: Date Diagnosed: 12/31/2018 3:26 PM (G44.209) Not Available [facility] 4 03:19:33 Dysphonia 68785239 Active 2021 Hoarseness ; Note: Date Diagnosed: 11/02/2021 5:23 PM (R49.0) Not Available [facility] 4 03:19:34 Chronic sialadeni tis 444599617 Active 2020 Chronic sialoadeni tis; Note: Date Diagnosed: 08/11/2020 3:39 PM (K11.21) Not Available [facility] 4 03:19:33 Tinnitus of vascular origin 229794242 Active 2017 Pulsatile tinnitus, bilateral; Note: Date Diagnosed: 10/23/2017 4:16 PM (H93.A3) Not Available [facility] 4 03:19:33 Posterior rhinorrhe a 44579870 Active 2021 Postnasal drip; Note: Date Diagnosed: 12/23/2021 5:52 PM (R09.82) Not Available [facility] 4 03:19:33 Acute sialoaden itis 550019769 Active 2024 TRACEE NOLEN MD [address],[place] [facility], [place], [address] , [facility] - [facility] 5 10:50:18 Sialolith iasis 38678302 Active 2024 TRACEE NOLEN MD [address],[place] [address], [place], [phone] , [facility] - [facility] [place] 5 10:50:24 Problem Notes None recorded. Procedures Surgical History Date Name Laterality Status Provider Name and Address Organization Details Recorded Time salivary stone removal completed TRACEE NOLEN MD [address] [place] [address], [place], [phone], [facility] - [facility] [place] 03/15/2024 10:51:04 Imaging Results None recorded. Procedure Notes None recorded. Medical Equipment None Reported. Allergies No known drug allergies Medications Name Sig Start Date Stop Date Status Note LastModified by Organization Details LastModified Time ibuprofen 800 mg tablet TAKE 1 TABLET BY MOUTH EVERY 8 HOURS NEEDED FOR PAIN 03/15 completed Not Available Not Available Not Available simvastat in 10 mg tablet TAKE 1 TABLET BY MOUTH EVERYDAY AT BEDTIME active Not Available Not Available No t Available triamcino lone acetonide 55 mcg nasal spray aerosol 2018 active Medicati on ID: [id number] D uration Value: 30 Brand Name: triamcin olone acetonid e Send Method: E-Prescr ibed Sub s Allowed: subs OK Speci al Instruct ion: SPRAY 1 SPRAY INTO EACH NOSTRIL EVERY DAY Medi cationGe nericNam e: triamcin olone acetonid e Not Available Not Available Not Available hydrochlo rothiazid e 12.5 mg capsule TAKE 1 CAPSULE BY MOUTH EVERY DAY active Not Available Not Available No t Available amoxicill in 250 mg capsule TAKE 1 CAPSULE BY MOUTH EVERY 8 HOURS UNTIL FINISHED 03/15 completed Not Available Not Available Not Available hydrochlo rothiazid e 25 mg tablet TAKE 1 TABLET BY MOUTH EVERY DAY active Not Available Not Available No t Available ondansetr on 4 mg disintegr ating tablet TAKE 1 TABLET BY MOUTH EVERY 8 HOURS 03/15 completed Not Available Not Available Not Available Vitamin D3 25 mcg (1,000 unit) capsule TAKE 1 CAPSULE BY MOUTH DAILY FOR 90 DAYS active Not Available Not Available No t Available Allergy Relief (loratadi ne) 10 mg tablet 2018 active Medicati on ID: [id number] D uration Value: 30 Brand Name: loratadi ne Send Method: E-Prescr ibed Sub s Allowed: subs OK Speci al Instruct ion: TAKE 1 TABLET BY MOUTH EVERY DAY Medi cationGe nericNam e: loratadi ne Not Available Not Available Not Available Flonase Allergy Relief 50 mcg/actua tion nasal spray,zia pension [place] 2 spray into both nostrils once a day 03/15 completed Medicati on ID: [id number] D uration Value: 30 Brand Name: Flonase Allergy Relief S end Method: E-Prescr ibed Sub s Allowed: subs OK Medic ationGen ericName : Flonase Allergy Relief Not Available Not Available Not Available Vitals Date Recorded Body height Body mass index (BMI) Body weight Provider Name and Address Organization Details Last Updated DateTime 03/15/2024 152.4 cm 28.5 kg/m2 61651.49 g Huber Stevenson [place] - [facility] 03/15/2024 10:28:53 Social History None recorded. Functional Status None recorded. Mental Status None recorded. Family History Nothing Reported. Medical History No medical history recorded. Gynecological HistoryNo gynecological history recorded. Obstetrics History GPAL:G 0 P 0 0 0 0 Past Encounters Encounter ID Performer Location Encounter Start Date Encounter Closed Date Diagnosis/Indication Diagnosis SNOMED-CT Code Diagnosis ICD10 Code Diagnosis Note [id number] TRACEE NOLEN MD [facility] [id number] [place] [address] 03/15/2024 10:01:34 03/15/2024 10:50:26 Acute sialoadenitis 625689042 K11.21 resolved, no purulence after stone removal Sialolithiasis 69050104 K11.5 informed consent for stone removal obtained, stone removed, she tolerated well, i encouraged hydration and massage, f/u 4 months for a recheck. no need for additional abx. Health Concerns Section Related Observation LastModified by Organization Detai ls LastModified Time None Recorded Concern Status LastModified by Organization Details LastModified Time None Recorded Advance Directives Directive None Recorded Payers Encounter Date Sequence Insurance Name Policy Number Policy Dai Covered Member ID Dai Member ID Guarantor Name 03/15/2024 1 [place] [employer] Jazmyn Narvaez [id number] Jazmyn Narvaez 03/15/2024 2 [place] [id number] Jazmyn Narvaez [id number] Jazmyn Narvaez Notes Date Note Type Note Provider Name and Address Organization Details Recorded Time 03/15/2024 text/html She noted a michael le bump under the ventral surface of her tongue 2 weeks ago. She had some associated pain. She noted some adjacent redness. She was seen by her dentist. Her dentist put her on abx. After she took abx for 7 days and the pain and redness improved. She reports the bump is still there. She notes occasional right submandibular swelling after eating. TRACEE NOLEN MD [address] [place] [address], [phone], [facility] - [facility] 03/15/2024 10:52:48 OBGyn Episode No OBEpisode recorded.
[2024-06-29 11:39] LABS: Alanine Aminotransferase 23 U/L (0-31); Albumin Level 4.1 g/dL (3.5-5.0); Anion Gap 13 (12-20); Aspartate Amino Transferase 25 U/L (5-31); Bilirubin Total 1.1 mg/dL (0.0-1.0); Blood Urea Nitrogen 19 mg/dL (9-16); Calcium 9.7 mg/dL (8.4-10.2); Carbon Dioxide 30 mmol/L (22-29); Chloride 104 mmol/L (96-108); Cholesterol 169 mg/dL (<200); Estimated Glomerular Filt Rate 59; Glucose Fasting 113 mg/dL (60-99); HDL Cholesterol 63 mg/dL (>40); LDL Cholesterol Calculated 90 mg/dL (<100); Potassium 3.5 mmol/L (3.3-5.1); Sodium 143 mmol/L (135-145); Total Protein 7.1 g/dL (6.5-8.0); Triglycerides 84 mg/dL (<150)
[2024-06-29 12:01] LABS: Vitamin D 25-OH Total 39.1 ng/mL (>30)
[2024-06-29 13:12] LABS: Alkaline Phosphatase 48 U/L (39-117)
== END 2024-06-29 10:27 | disposition home or self-care (01) ==
LOC: HO.LAB 10:26
PROVIDERS: PCP Internal Medicine; Visit Provider Internal Medicine
DX: E78.5 Hyperlipidemia, unspecified (principal); E78.00 Pure hypercholesterolemia, unspecified; E55.9 Vitamin D deficiency, unspecified
CPT/HCPCS: 36415; 80053; 80061; 82306

== ENCOUNTER 2024-07-02 17:16 | Outpatient (AMB) | payer MEDICARE, SELFPAY ==
--- OUTSIDE RECORDS SUMMARY | 2024-07-02 17:19 | XMS_ITS | Data Portability ---
Author Organization [place] - [facility], Allergy Address [address] [facility] [address] [place] [id number] Care Team Providers Care Fans Clerk Name Role Phone DIEGO GARCIA Referring Provider ELLEN CAPPS Primary Care Provider Assessment No [...] Organization Details Recorded Time Tension-t ype headache 329755184 Active 2018 Tension headache NOS; Note: Date Diagnosed: 12/31/2018 3:26 PM (G44.209) Not Available [facility] 4 03:19:33 Dysphonia 01366338 Active 2021 Hoarseness ; Note: Date Diagnosed: 11/02/2021 5:23 PM (R49.0) Not Available [facility] 4 03:19:34 Chronic sialadeni tis 975921056 Active 2020 Chronic sialoadeni tis; Note: Date Diagnosed: 08/11/2020 3:39 PM (K11.21) Not Available [facility] 4 03:19:33 Tinnitus of vascular origin 584516137 Active 2017 Pulsatile tinnitus, bilateral; Note: Date Diagnosed: 10/23/2017 4:16 PM (H93.A3) Not Available [facility] 4 03:19:33 Posterior rhinorrhe a 21414031 Active 2021 Postnasal drip; Note: Date Diagnosed: 12/23/2021 5:52 PM (R09.82) Not Available [facility] 4 03:19:33 Acute sialoaden itis 972944099 Active 2024 TRACEE NOLEN MD [address],[place] [facility], [place], [address] , [facility] - [facility] 5 10:50:18 Sialolith iasis 00118483 Active 2024 TRACEE NOLEN MD [address],[place] [address], [place], [address] , [facility] - [facility] 5 10:50:24 Problem Notes None recorded. Procedures Surgical History Date Name Laterality Status Provider Name and Address Organization Details Recorded Time salivary stone removal completed TRACEE NOLEN MD [address],[place] [address], [place], [address], [facility] - [facility] 03/15/2024 10:51:04 Imaging Results None recorded. Procedure [...] spray aerosol 2018 active Medicati on ID: [id number] D uration Value: 30 Brand Name: triamcin [...] mg tablet 2018 active Medicati on ID: [id number] D uration Value: 30 Brand Name: loratadi ne Send Method: E-Prescr ibed Sub s Allowed: subs OK Speci al Instruct ion: TAKE 1 TABLET BY MOUTH EVERY DAY Medi cationGe nericNam e: loratadi ne Not Available Not Available Not Available Flonase Allergy Relief 50 mcg/actua tion nasal spray,zia pension [place] 2 spray into both nostrils once a day 03/15 completed Medicati on ID: [id number] D uration Value: 30 Brand Name: Flonase Allergy Relief S end Method: E-Prescr ibed Sub s Allowed: subs OK Medic ationGen ericName : Flonase Allergy Relief Not Available Not Available Not Available Vitals Date Recorded Body height Body mass index (BMI) Body weight Provider Name and Address Organization Details Last Updated DateTime 03/15/2024 152.4 cm 28.5 kg/m2 11864.49 g Huber Stevenson [place] - [facility] 03/15/2024 10:28:53 Social History None recorded. Functional Status None recorded. Mental Status None recorded. Family History Nothing Reported. Medical History No medical history recorded. Gynecological HistoryNo gynecological history recorded. Obstetrics History GPAL:G 0 P 0 0 0 0 Past Encounters Encounter ID Performer Location Encounter Start Date Encounter Closed Date Diagnosis/Indication Diagnosis SNOMED-CT Code Diagnosis ICD10 Code Diagnosis Note [id number] TRACEE NOLEN MD [facility] [address] [place] [address] 03/15/2024 10:01:34 03/15/2024 10:50:26 Acute sialoadenitis 860408673 K11.21 resolved, no purulence after stone removal Sialolithiasis 29553561 K11.5 informed consent for stone removal obtained, [...] ID Guarantor Name 03/15/2024 1 [place]IC[place] B-[place]: [employer] Jazmyn Narvaez [id number] 2 Jazmyn Narvaez 03/15/2024 2 [place] [id number] Jazmyn Narvaez [id number] Jazmyn Narvaez Notes Date Note Type [...] submandibular swelling after eating. TRACEE NOLEN MD [address] [place] [address], [phone], [facility] - [facility] 03/15/2024 10:52:48 OBGyn Episode No OBEpisode recorded.
[2024-07-02 17:20] VITALS: BP 130/70; BMI 25.9
--- NOTE | 2024-07-02 17:20 | MHC.PC.OV ---
Vital Signs 07/02/24 17:20 Height 5 ft 4 in Weight 151 lb BMI 25.9 BP 130/70 Blood Pressure Location Lt brachial Position Sitting Intake Visit Reasons: bp Intake Note: Patient here for a follow up BP C 40A Crew Chief Required: No Accompanied by: Self / Same As Patient Allergies bee pollen [BEE STINGS] Allergy (Intermediate, Verified 07/02/24 17:27) Swelling Medication List - Last Reconciled 07/02/24 by Willow Murphy MD biotin 1 mg PO DAILY cholecalciferol (vitamin D3) 25 mcg PO DAILY 90 days hydrochlorothiazide 25 mg PO DAILY 90 days ondansetron 4 mg PO Q8H PRN simvastatin 10 mg PO BEDTIME 90 days Tobacco use date assessed: 03/04/24 Fall risk assessment: No Falls in past year Last assessed Fall Risk: 07/02/24 Dental Screening Dental Screen Date: 03/04/24 HPI HPI Comments History of Present Illness Details The patient is a 69-year-old female presenting with chronic dry cough persisting for about three months. The cough is characterized by intermittent fits that occur both locally and during travels. It began after a recent hospitalization, but no other acute symptoms such as wheezing or leg swelling accompany the cough. The patient denies associated heartburn or significant respiratory discomfort. Additionally, the patient has a managed history of hypertension and hyperlipidemia, while recently, there has been a noted reduction in impaired glucose levels. The improvement is possibly attributed to increased consumption of vegetables and fruits during a stay in [place], adopting some practices observed in her cousin?s dietary habits. [facility] Medical History (Updated 07/02/24 @ 17:44 by Willow Murphy MD) Pyelonephritis Pelvic pain in female BONIFACIO I (cervical intraepithelial neoplasia I) Impaired glucose tolerance Right elbow pain Vitamin D insufficiency Dyslipidemia Vitamin D deficiency GERD (gastroesophageal reflux disease) Hypercholesterolemia Hypertension Surgical History Hx of colonoscopy H/O right breast biopsy Family History Father Lung cancer Mother Stroke Hypertension Social History Household Members: None Housing: House Do you presently have visiting nurse or other home services: No Alcohol intake: never Patient Tobacco Use Status: Former Tobacco user Tobacco use type: Cigarette e-Cigarette/Vaping Use: Never Used Second Hand Smoke Exposure: No service: No Current occupational status: employed Current occupational exposures/hazards: No Sexual orientation: Straight/Heterosexual Gender identity: Female Cognitive needs: No Hearing needs: No Vision needs: Yes Questionnaire PHQ-9 Over the last 2 weeks, how often have you been bothered by any of the following problems? 1. Little interest or pleasure in doing things: not at all 2. Feeling down, depressed, or hopeless: not at all 3. Trouble falling or staying asleep, or sleeping too much: not at all 4. Feeling tired or having little energy: not at all 5. Poor appetite or overeating: not at all 6. Feeling bad about yourself - or that you are a failure or have let yourself or your family down: not at all 7. Trouble concentrating on things, such as reading the newspaper or watching television: not at all 8. Moving or speaking so slowly that other people could have noticed. Or the opposite - being so fidgety or restless that you have been moving around a lot more than usual: not at all 9. Thoughts that you would be better off or of hurting yourself in some way: not at all Total score: 0 Depression Screening Interpretation: Negative Depression Screening Done: Yes 10501 - PHQ-9 Billing: Yes Source: Developed by Drs. Alex Godinez, Mariah Chen, Jeff Junior and colleagues, with an educational cristobal from [employer]. Thrive Questionnaire Date Thrive assessed: 07/02/24 I am a: Patient What is your living situation today?: I have a steady place to live Within the past 12 months, did the food you bought not last and you didn't have the money to get more?: Never true Within the past 12 months, did you worry whether your food would run out before you got money to buy more?: Never true Do you have trouble paying for medicines?: No Do you have trouble getting transportation to medical appointments?: No Do you have trouble paying your heating and electricity bill?: No Do you have trouble taking care of your child, family member or friend?: No Do you have trouble with day-to-day activities such as bathing, preparing meals, shopping, managing finances, etc.?: No Are you currently unemployed and looking for a job?: No Are you interested in more education?: No Please select the resources that you would like help with: None Currently or been in a relationship where the following occur: No concerns reported THRIVE Score: 0 AUDIT C Alcohol Use Questionnaire (AUDIT-C) 1. How often do you have a drink containing alcohol?: Monthly or less 2. How many drinks containing alcohol do you have on a typical day when you are drinking?: 1 or 2 3. How often do you have six or more drinks on one occasion?: Never Total Score: 1 Score Reviewed/Action Taken: No SALONI-7 AMB Questionnaire SALONI-7 Date SALONI - 7 assessed: 07/02/24 Feeling nervous, anxious, or on edge: 0 = Not at all Not being able to stop or control worryin = Not at all Worrying too much about different things: 0 = Not at all Trouble relaxin = Not at all Being so restless that it is hard to sit still: 0 = Not at all Becoming easily annoyed or irritable: 0 = Not at all Feeling afraid as if something awful might happen: 0 = Not at all Total SALONI-7 score (0-4 normal; 5-9 mild; 10-14 moderate; 15-21 severe): 0 Source: Developed by Drs. Alex Godinez, Mariah Chen, Jeff Junior and colleagues, with an educational cristobal from [employer]. SALONI-7 Assessment Billing SALONI-7 Assessment Tool: SALONI-7 Assessment 39827 Review of Systems Const All systems reviewed & are unremarkable except as noted in HPI and below Card Denies chest pain at rest, Denies chest pain with activity, Denies edema, Denies irregular heart rhythm, Denies claudication, Denies orthopnea, Denies paroxysmal nocturnal dyspnea and Denies slow heart rate Physical exam (Primary Care) Vital Signs: Last Vital Signs BP 130/70 07/02/24 17:20 BMI result Body Mass Index 25.9 Tobacco/Smoking Status: Tobacco use Status Tobacco use date assessed 03/04/24 07/02/24 17:24 Patient Tobacco Use Status Former Tobacco user 07/02/24 17:24 Tobacco use type Cigarette 07/02/24 17:24 e-Cigarette/Vaping Use Never Used 07/02/24 17:24 PHQ-9: PHQ-9 Score PHQ-9: Total score 0 07/02/24 17:24 Depression Screening Interpretation: Negative Thrive Assessment: Date of Thrive Assessment Date Thrive assessed 07/02/24 07/02/24 17:24 Currently or been in a relationship where the following occur: No concerns reported Resp Effort & Inspection: normal respiratory effort Auscultation: clear to auscultation bilaterally Cardio Jugular venous distension: no JVD Rate: regular rate Rhythm: regular rhythm Heart sounds: S1 normal heart sound present and S2 normal heart sound present Extrem General: Yes full ROM Coding Level of Care Code Est Pt Level 4 (51153) Complex EM visit Add On G2211 Diagnoses Chronic coughing R05.3 Pure hypercholesterolemia E78.00 Benign essential hypertension I10 Hypovitaminosis D E55.9 Impaired glucose tolerance R73.02 Additional Codes PHQ-9 - 99136 - PHQ-9 Billing: Yes ([id number]) SALONI-7 Assessment Billing - SALONI-7 Assessment Tool: SALONI-7 Assessment 61276 ([id number]) Time Spent (min) 23 Assessment & Plan Assessment & Plan (1) Chronic coughing: Code(s): R05.3 - Chronic cough Category: Medical (2) Pure hypercholesterolemia: Code(s): E78.00 - Pure hypercholesterolemia, unspecified Category: Medical (3) Benign essential hypertension: Code(s): I10 - Essential (primary) hypertension Category: Medical (4) Hypovitaminosis D: Code(s): E55.9 - Vitamin D deficiency, unspecified Category: Medical (5) Impaired glucose tolerance: Code(s): R73.02 - Impaired glucose tolerance (oral) Category: Medical Plan The patient?s chronic cough will be evaluated further with a chest x-ray, and a referral to a garbage collector driver for pulmonary function testing will be arranged to assess for any respiratory pathology. I stressed the importance of maintaining her dietary modifications, particularly focusing on glycemic control and ensuring continued compliance with her antihypertensive and cholesterol management medications. A multidisciplinary approach, including future reevaluation and follow-up in six months, will be essential in monitoring her chronic conditions and adjusting treatment as necessary. Patient was informed and verbally consented to the use of an ambient scribe for clinic note documentation during this visit. I discussed with the patient the potential causes of her chronic cough, including possible allergy-induced mechanisms or respiratory issues, and detailed why a chest x-ray and pulmonology referral would be prudent steps. The importance of obtaining a thorough pulmonary assessment was underscored, given the persistence of symptoms. Regarding her glucose tolerance, I reaffirmed the beneficial changes seen due to her current dietary habits and encouraged her to maintain these habits. I stressed the importance of follow-up for lipid profile and glucose levels in six months alongside routine health maintenance. Orders: Orders Comprehensive [place]. Panel Fast 6 Months E78.00 - Pure hypercholesterolemia, unspecified XR chest 2V Today R05.3 - Chronic cough Vitamin D 25-OH Total 6 Months E55.9 - Vitamin D deficiency, unspecified Lipid Panel 6 Months E78.5 - Hyperlipidemia, unspecified Referrals Pulmonology Referral R05.3 - Chronic cough Patient Instructions: - Continue current medications as prescribed. - Maintain a diet rich in vegetables and fruits to further improve glucose levels. - Undergo a scheduled chest x-ray. - Attend the referral appointment with the garbage collector driver for further evaluation of chronic cough. - Follow up in six months for reassessment of glucose levels and cholesterol. - Report any new or worsening symptoms, such as persistent wheezing or significant difficulty breathing.
== END 2024-07-02 17:43 | disposition home or self-care (01) ==
LOC: HO.HMCH 17:16
PROVIDERS: PCP Internal Medicine; Visit Provider Internal Medicine
DX: R05.3 Chronic cough (principal); E78.00 Pure hypercholesterolemia, unspecified; I10 Essential (primary) hypertension; E55.9 Vitamin D deficiency, unspecified; R73.02 Impaired glucose tolerance (oral)

== ENCOUNTER → 2024-07-02 17:16 | Outpatient (BNVA) | payer MEDICARE, SELFPAY | PROVIDERS: PCP Internal Medicine; Visit Provider Internal Medicine | DX: R05.3 Chronic cough (principal); E78.00 Pure hypercholesterolemia, unspecified; E55.9 Vitamin D deficiency, unspecified; I10 Essential (primary) hypertension; R73.02 Impaired glucose tolerance (oral) | CPT/HCPCS: 96127; 99212 ==

== ENCOUNTER 2024-09-05 18:51 | Emergency (ER) | payer MEDICARE, SELFPAY ==
--- NOTE | ~2024-09-05 | XR_ITS ---
CLINICAL HISTORY: CP Chest Radiographs, 2 views Comparison: 11/11/23 Findings: No cardiomegaly. Normal mediastinal contours. No pneumothorax. No opacity. No pleural effusion. Normal upper abdomen. No acute fracture. Impression: No acute findings. This document has been electronically signed by: Yarely Temple MD on 09/05/2024 20:30:36
--- NOTE | 2024-09-05 18:53 | ECG_ITS ---
Test Reason : CHEST PAIN Blood Pressure : */* mmHG Vent. Rate : 71 BPM Atrial Rate : 71 BPM P-R Int : 166 ms QRS Dur : 100 ms QT Int : 440 ms P-R-T Axes : 65 24 40 degrees QTcB Int : 478 ms Normal sinus rhythm Normal ECG When compared with ECG of 31-May-2023 21:50, No significant change was found Referred By: Generic ED Physician Electronically Signed By: Lux Champion
[2024-09-05 19:29] VITALS: BP 157/65; PULSE 68; RESP 16; TEMP 36.3; O2SAT 96; BMI 25.2
--- NOTE | 2024-09-05 19:30 | ED_ITS ---
HPI - Chest Pain General Chief Complaint: Chest Pain Stated Complaint: chest pain/heart racing,sob Time Seen by Provider: 09/05/24 20:51 Source: patient and family (Significant other at bedside corroborating history) Mode of arrival: ambulatory Limitations: no limitations History of Present Illness ED Provider: Robbie Lenz PA-C HPI narrative: 69-year-old female with medical history of HLD, GERD, HTN, BONIFACIO 1, presents to the ED due to 2 months of SOB on exertion, in 3 weeks of palpitations/racing heartbeat. Patient states SOB is worse when going upstairs. Palpitations are intermittenet and can happen with activity or at rest, is not associated with chest pain, or nausea. 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 She reports going home to take a nap and was awoken from her nap by the Feeling of a racing heart , palpitations and a mild frontal throbbing headache. She did not take any medications for headache. She states her symptoms have resolved at this time. She denies recent/prolonged travel, hormone therapy, recent illness, tobacco use, chest pain, nausea, vomiting, black/tarry stool, diarrhea, syncope, lightheadedness, fever, cough, visual changes. MD complaint: other (palpitations/racing heart) Onset (ago): week(s) Timing of current episode: episodic and now resolved Prior episodes: Yes Treatment prior to arrival: none Related Data Home Medications ?Medication ?Instructions ?Recorded ?Confirmed biotin 1 mg tablet 1 mg PO DAILY 11/12/2307/02 ondansetron 4 mg disintegrating 4 mg PO Q8H PRN Nausea And Vomiting 11/12/23 07/02/24 tablet Previous Rx's ?Medication ?Instructions ?Recorded simvastatin 10 mg tablet 10 mg PO BEDTIME 90 days #90 tabs 05/10/24 hydrochlorothiazide 25 mg tablet 25 mg PO DAILY 90 day s #90 tabs 05/20/24 cholecalciferol (vitamin D3) 25 25 mcg PO DAILY 90 day s #90 caps 08/23/24 mcg (1,000 unit) capsule Allergies Allergy/AdvReac Type Severity Reaction Status Date / Time bee pollen (BEE STINGS) Allergy Intermediate Swelling Verified 09/05/24 19:29 Review of Systems 2 Review of Systems: At this time, patients symptoms have completely resolved. CONST: Negative for fever, body aches and chills. HENT: Negative for neck pain/stiffness, headache, congestion, sore throat, swelling. EYES: Negative for discharge/pain or vision changes. RESP: Negative for cough/hemoptysis and shortness of breath. CV: Negative chest pain, difficulty breathing, palpitations. ABD: Negative pain, nausea, vomiting. : Negative increase frequency, dysuria, blood in urine or stool. MUSC: Negative for muscle aches, edema. SKIN: Negative rash, lesions/sores. NEURO: Negative headache, dizziness, weakness. [facility] Past Medical History Medical History Pyelonephritis Pelvic pain in female BONIFACIO I (cervical intraepithelial neoplasia I) Impaired glucose tolerance Right elbow pain Vitamin D insufficiency Dyslipidemia Vitamin D deficiency GERD (gastroesophageal reflux disease) Hypercholesterolemia Hypertension Surgical History Hx of colonoscopy H/O right breast biopsy Family History Family History Father Lung cancer Mother Stroke Hypertension Social History Social History Household Members: None Housing: House Do you presently have visiting nurse or other home services: No Alcohol intake: never Patient Tobacco Use Status: Former Tobacco user Tobacco use type: Cigarette Smoked in Last 30 Days: No e-Cigarette/Vaping Use: Never Used Second Hand Smoke Exposure: No Use of substances other than those prescribed or required for medical reasons: No Advance Directives: Yes Advance Directives on File: Yes Advance Directives Date on File: 11/17/23 service: No Current occupational status: employed Current occupational exposures/hazards: No Sexual orientation: Straight/Heterosexual Gender identity: Female Cognitive needs: No Hearing needs: No Vision needs: Yes Physical Exam 2 Vital Signs: Vital Signs: Last Vital Signs Temp 97.3 F 09/05/24 22:59 Pulse 67 09/05/24 22:59 Resp 17 09/05/24 22:59 BP 139/72 09/05/24 22:59 Pulse Ox 98 09/05/24 22:59 O2 Del Method Room Air 09/05/24 22:59 BMI result Body Mass Index 25.2 GENERAL APPEARANCE: ?AxOx4, generally well-appearing, no acute distress. HEENT: ?NC, AT. MMM. EOMI, clear conjunctiva, oropharynx clear. NECK: ?Supple without lymphadenopathy.? No stiffness or restricted ROM. HEART:? Normal rate and regular rhythm, normal S1/S1, no m/r/g, no evidence of fluid overload, no JVD. LUNGS:? CTAB, moving air well. No crackles or wheezes are heard. ABDOMEN: ?Soft, nontender, nondistended EXTREMITIES: ?Without cyanosis, clubbing or edema, no pitting edema of LE NEUROLOGICAL: ?Grossly nonfocal. Alert and oriented, moving all 4 extremities. Observed to ambulate with normal gait. Skin: ?Warm and dry without any rash. Course Course Course Narrative: This is an RME: Additional HPI, ROS, PE not included below will be deferred to primary provider. RME assessment and note performed by: Annabella Mejia PA-C This is a [id number], with a hx of HLD, HTN, who presents to the ER with a complaint of heart palpitations for several days. Reporting some headaches and dizziness. Reports that she also has had some SOB with walking up stairs. Plan: Labs, EKG, CXR Medical Decision Making Medical Decision Making MDM Narrative: 69-year-old female with medical history of HLD, GERD, HTN, BONIFACIO 1, presents to the ED due to 2 months of SOB on exertion, in 3 weeks of palpitations/racing heartbeat. Patient states SOB is worse when going upstairs. Palpitations are intermittent and can happen with activity or at rest and last for a few minutes at a time. The symptoms are not associated with chest pain, or nausea. 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 She reports going home to take a nap and was awoken from her nap by the Feeling of a racing heart , palpitations and a mild frontal throbbing headache. She did not take any medications for headache. She states her symptoms have resolved at this time. She denies recent/prolonged travel, hormone therapy, recent illness, tobacco use VSS, in no acute distress, nontoxic appearing. On physical exam there is no lower extremity edema/pitting edema, no calf tenderness. Lungs clear to auscultation bilaterally, cardiac exam reveals normal rate and rhythm without JVD. O2 saturation 99% on room air, I had patient ambulate around the room with pulse oximeter and saturation did not drop, patient not tachycardic or SOB at this time, patient without risk factors of PE- no recent travel, no hormone use, no smoking- less likely PE. Patient states during physical exam her symptoms have completely resolved. EKG normal sinus rhythm, CXR does not reveal cardiomegaly or acute cardiopulmonary processes. Labs incluidng troponin, BNP, TSH WNL- less likely ACS, CHF, or hyperthyroid When conversating with the patient she does state she is sometimes stressed or anxious about small things. At this time I believe patient needs further evaluation with possible Holter monitor from PCP to capture episodes of palpitations. Patient has close follow up with PCP, I counseled patient to call her PCP in the morning to make an appointment. 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 I answered all questions that the patient and her significant other had. They are both in agreement to plan and feel comfortable to discharge home with close follow up. I counseled the patient for strict return precautions. Differential Diagnosis Differential Diagnoses: The differential diagnosis associated with the presentation includes Dysrhythmia CHF Electrolyte imbalance Hyperthyroidism PE Admission/Observation Consideration of admission/observation: Escalation of care including admission/observation considered Lab Data MDM Lab Attestation statement: I reviewed the patient's lab results. 09/05/24 20:23 09/05/24 20:23 Labs: Lab Results 09/05/24 Range/Units 20:23 WBC 6.6 (4.8-10.8) X10*3/uL RBC 4.13 L (4.20-5.50) X10*6/uL Hgb 12.6 (12.0-16.0) g/dl Hct 35.5 L (37.0-47.0) % MCV 86.0 (80.0-98.0) fL MCH 30.5 (27.0-33.0) pg MCHC 35.5 H (31.0-35.0) g/dl RDW 12.6 (11.0-16.0) % Plt Count 201 (160-400) X10*3/uL MPV 10.5 (9.4-12.3) fL Immature Gran % (Auto) 0.3 (0.0-0.4) % Neut % (Auto) 54.6 (45-73) % Lymph % (Auto) 31.3 (20-40) % Ripley % (Auto) 10.1 (2-11) % Eos % (Auto) 3.1 (0-4) % Baso % (Auto) 0.6 (0-2) % Lymph # (Auto) 2.1 (1.2-4.9) X10*3/uL Ripley # (Auto) 0.7 (0.1-1.2) X10*3/uL Eos # (Auto) 0.2 (0.0-0.4) X10*3/uL Baso # (Auto) 0.0 (0.0-0.2) X10*3/uL Abs Immat Gran (auto) 0.02 (0.00-0.03) X10*3/uL Absolute Neuts (auto) 3.6 (2.0-8.3) x10*3/uL Absolute Nucleated RBC 0.000 (0.0-0.012) X10*3/uL Nucleated RBC % (auto) 0.0 (0.0-0.2) /100WBC Sodium 141 (135-145) mmol/L Potassium 3.4 (3.3-5.1) mmol/L Chloride 104 (96-108) mmol/L Carbon Dioxide 28 (22-29) mmol/L Anion Gap 12 (12-20) BUN 25 H (9-16) mg/dL Creatinine 1.05 (0.5-1.4) mg/dL Estim Creat Clear Calc 50.6 Estimated GFR 52 Random Glucose 91 (60-115) mg/dL Calcium 9.5 (8.4-10.2) mg/dL Magnesium 2.0 (1.6-2.6) mg/dL Total Bilirubin 0.8 (0.0-1.0) mg/dL Direct Bilirubin 0.3 (0.0-0.5) mg/dL AST 30 (5-31) U/L ALT 30 (0-31) U/L Alkaline Phosphatase 60 (39-117) U/L Troponin I High Sens 3.0 (<3.5-17.0) ng/L B-Natriuretic Peptide 26 (<100) pg/mL Total Protein 7.3 (6.5-8.0) g/dL Albumin 4.3 (3.5-5.0) g/dL TSH 3.52 (0.32-4.0) uIU/mL Independent Interpretation I performed an independent interpretation of an: EKG and Plain X-Ray Interpretation: I personally interpreted the EKG: Vent. Rate : 71 BPM Atrial Rate : 71 BPM P-R Int : 166 ms QRS Dur : 100 ms QT Int : 440 ms P-R-T Axes : 65 24 40 degrees QTcB Int : 478 ms Normal sinus rhythm Normal ECG I personally interpreted the chest x-ray which did not reveal any cardiomegaly, pulmonary edema, or pleural effusion I agree with the radiologist's interpretation. Radiology Impression Discussion of test interpretation with radiology: I have reviewed the radiologist's reading. Radiologist Impression: CXR Findings: No cardiomegaly. Normal mediastinal contours. No pneumothorax. No opacity. No pleural effusion. Normal upper abdomen. No acute fracture. Impression: No acute findings. This document has been electronically signed by: Yarely Temple MD on 09/05/2024 20:30:36 Dictated By: Yarely Murphy MD Signed By: <Electronically signed by Yarely Murphy MD in OV> 09/05/242031 Independent Historian Clinical information obtained from an independent historian. History obtained from or confirmed by: Other (Significant other) External Record Review External record reviewed: Inpatient record, Office record and Outpatient record Chronic Conditions Patient?s care impacted by: Hypertension Discharge Plan Discharge Clinical Impression: Intermittent palpitations Patient Disposition: Home, Self-Care Instructions: Heart Palpitations (ED) Additional Instructions: You were evaluated in the ED today due to intermittent heart palpitations and shortness of breath on activity. Your EKG was normal sinus rhythm and done not evaluate any emergent cardiac processes, your chest x-ray was normal. Your lab work including troponin and BNP were all within normal limits. Your physical exam did not reveal any fluid overload including pitting edema of your lower extremities, or any evidence of fluid on your lungs. Your vital signs were stable, your oxygen saturation was 99%. I recommend that you follow up with your PCP and discuss a possible Holter monitor to catch your episodes of palpitations. Please return to the emergency department if you experience chest pain, worsening shortness of breath, lightheadedness, visual changes, nausea, vomiting, fever over 100.4?, or any new/concerning/worsening symptoms. Prescriptions: No Action simvastatin 10 mg tablet 10 mg PO BEDTIME 90 Days Qty: 90 1RF hydrochlorothiazide 25 mg tablet 25 mg PO DAILY 90 Days Qty: 90 1RF cholecalciferol (vitamin D3) 25 mcg (1,000 unit) capsule 25 mcg PO DAILY 90 Days Qty: 90 1RF ondansetron 4 mg tablet,disintegrating 4 mg PO Q8H PRN (Reason: Nausea And Vomiting) biotin 1 mg Tablet 1 mg PO DAILY Interventions: ED Discharge Assessment Last Done: 09/05/24 22:59 Discharge Date/Time: 09/05/24 23:00 Print Language: Singaporean
[2024-09-05 20:29] LABS: MANUAL DIFF FLAG NO
[2024-09-05 20:31] LABS: Hematocrit 35.5 % (37.0-47.0); Hemoglobin 12.6 g/dl (12.0-16.0); Imm Gran Abs Auto 0.02 X10*3/uL (0.00-0.03); Imm Gran Pct Auto 0.3 % (0.0-0.4); Lymphocytes Absolute Auto 2.1 X10*3/uL (1.2-4.9); Mean Corpuscular HGB Conc 35.5 g/dl (31.0-35.0); Mean Corpuscular Hemoglobin 30.5 pg (27.0-33.0); Mean Corpuscular Volume 86.0 fL (80.0-98.0); NRBC Abs Auto 0.000 X10*3/uL (0.0-0.012); NRBC Pct Auto 0.0 /100WBC (0.0-0.2); Platelet Count 201 X10*3/uL (160-400); Red Blood Count 4.13 X10*6/uL (4.20-5.50); White Blood Count 6.6 X10*3/uL (4.8-10.8)
[2024-09-05 20:52] LABS: B Type Natriuretic Peptide 26 pg/mL (<100)
[2024-09-05 20:53] LABS: Alanine Aminotransferase 30 U/L (0-31); Albumin Level 4.3 g/dL (3.5-5.0); Alkaline Phosphatase 60 U/L (39-117); Anion Gap 12 (12-20); Aspartate Amino Transferase 30 U/L (5-31); Blood Urea Nitrogen 25 mg/dL (9-16); Calcium 9.5 mg/dL (8.4-10.2); Carbon Dioxide 28 mmol/L (22-29); Chloride 104 mmol/L (96-108); Creatinine Clr Calc Pharmacy 50.6; Estimated Glomerular Filt Rate 52; Magnesium 2.0 mg/dL (1.6-2.6); Potassium 3.4 mmol/L (3.3-5.1); Sodium 141 mmol/L (135-145); Total Protein 7.3 g/dL (6.5-8.0); Troponin-I High Sensitivity 3.0 ng/L (<3.5-17.0)
[2024-09-05 22:59] VITALS: BP 139/72; PULSE 67; RESP 17; TEMP 36.3; O2SAT 98
== END 2024-09-05 23:00 | disposition home or self-care (01) ==
PROVIDERS: Physician Assistant Medical; Emergency Provider Emergency Medicine Emergency Medical Services; PCP Internal Medicine
DX: R00.2 Palpitations (principal); R07.9 Chest pain, unspecified; E78.5 Hyperlipidemia, unspecified; R06.02 Shortness of breath; K21.9 Gastro-esophageal reflux disease without esophagitis; I10 Essential (primary) hypertension
CPT/HCPCS: 36415; 71046; 80048; 80076; 83735; 83880; 84443; 84484; 85025; 93005; 99283; 99284

== ENCOUNTER → 2024-09-05 18:53 | Outpatient (BNV) | payer MEDICARE, SELFPAY | PROVIDERS: Emergency Provider Emergency Medicine Emergency Medical Services; PCP Internal Medicine; Visit Provider Internal Medicine Cardiovascular Disease | DX: R07.9 Chest pain, unspecified (principal) | CPT/HCPCS: 93010 ==

== ENCOUNTER → 2024-09-05 19:30 | Outpatient (BNV) | payer MEDICARE, SELFPAY | PROVIDERS: Emergency Provider Emergency Medicine Emergency Medical Services; PCP Internal Medicine; Visit Provider Radiology Diagnostic Radiology | DX: R07.9 Chest pain, unspecified (principal) | CPT/HCPCS: 71046 ==

== ENCOUNTER 2024-09-25 12:41 | Outpatient (AMB) | payer MEDICARE, SELFPAY ==
--- NOTE | 2024-09-25 12:44 | A.OFFPC_ITS ---
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 She has a history of elevated blood pressure, with occasional spikes to 220 mmHg during stress, and is currently on hydrochlorothiazide 25 mg, though her blood pressure remains variably controlled. She reports palpitations that prompted an emergency room visit on September 05, where an EKG was normal. The palpitations are described as a sensation of turbulence in the chest, occurring intermittently, often at rest or postprandially. The patient also experiences dyspnea on exertion, particularly when climbing stairs, which she associates with increased cardiac workload. This has been ongoing for over a month and contributed to her emergency room visit. She has a known allergy to bees and reports a dry cough occurring once or twice daily, exacerbated by inadequate hydration. [facility] Medical History (Updated 09/25/24 @ 13:24 by Willow Murphy MD) Pyelonephritis Pelvic pain in female BONIFACIO I (cervical intraepithelial neoplasia I) Impaired glucose tolerance Right elbow pain Vitamin D insufficiency Dyslipidemia Vitamin D deficiency GERD (gastroesophageal reflux disease) Hypercholesterolemia Hypertension Surgical History Hx of colonoscopy H/O right breast biopsy Family History Father Lung cancer Mother Stroke Hypertension Social History Household Members: None Housing: House Do you presently have visiting nurse or other home services: No Alcohol intake: never Patient Tobacco Use Status: Former Tobacco user Tobacco use type: Cigarette e-Cigarette/Vaping Use: Never Used Second Hand Smoke Exposure: No Advance Directives Date on File: 11/17/23 service: No Current occupational status: employed Current occupational exposures/hazards: No Sexual orientation: Straight/Heterosexual Gender identity: Female Cognitive needs: No Hearing needs: No Vision needs: Yes Questionnaire Thrive Questionnaire Date Thrive assessed: 07/02/24 I am a: Patient What is your living situation today?: I have a steady place to live Within the past 12 months, did the food you bought not last and you didn't have the money to get more?: Never true Within the past 12 months, did you worry whether your food would run out before you got money to buy more?: Never true Do you have trouble paying for medicines?: No Do you have trouble getting transportation to medical appointments?: No Do you have trouble paying your heating and electricity bill?: No Do you have trouble taking care of your child, family member or friend?: No Do you have trouble with day-to-day activities such as bathing, preparing meals, shopping, managing finances, etc.?: No Are you currently unemployed and looking for a job?: No Are you interested in more education?: No Please select the resources that you would like help with: None Currently or been in a relationship where the following occur: No concerns reported THRIVE Score: 0 SALONI-7 AMB Questionnaire SALONI-7 Date SALONI - 7 assessed: 07/02/24 Source: Developed by Drs. Alex Godinez, Mariah Chen, Jeff Junior and colleagues, with an educational cristobal from [employer]. Review of Systems Const All systems reviewed & are unremarkable except as noted in HPI and below Card Denies chest pain at rest, Denies chest pain with activity, Denies edema, Denies irregular heart rhythm, Denies claudication, Denies dyspnea, Denies dyspnea on exertion, Denies orthopnea, Denies paroxysmal nocturnal dyspnea and Denies slow heart rate Resp Denies cough, Denies dyspnea and Denies dyspnea on exertion GI Denies abdominal pain, Denies change in bowel habits, Denies excessive flatus, Denies nausea and Denies vomiting Denies urinary incontinence, Denies urinary hesitancy and Denies urinary urgency Musc Denies atrophy, Denies deformity and Denies limited range of motion Physical exam (Primary Care) Vital Signs: Last Vital Signs BP 152/80 H 09/25/24 12:45 BMI result Body Mass Index 24.5 Tobacco/Smoking Status: Tobacco use Status Tobacco use date assessed 03/04/24 09/25/24 12:44 Patient Tobacco Use Status Former Tobacco user 09/25/24 12:44 Tobacco use type Cigarette 09/25/24 12:44 e-Cigarette/Vaping Use Never Used 09/25/24 12:44 Thrive Assessment: Date of Thrive Assessment Date Thrive assessed 07/02/24 09/25/24 12:44 Currently or been in a relationship where the following occur: No concerns reported Resp Effort & Inspection: normal respiratory effort Auscultation: clear to auscultation bilaterally Cardio Jugular venous distension: no JVD Rate: regular rate Rhythm: regular rhythm Heart sounds: S1 normal heart sound present, S2 normal heart sound present and Murmur heart sound present Extrem General: Yes full ROM Coding Level of Care Code Est Pt Level 4 (87084) Complex EM visit Add On G2211 Diagnoses Benign essential hypertension I10 Palpitations R00.2 Dyslipidemia E78.5 Hypovitaminosis D E55.9 Time Spent (min) 22 Assessment & Plan Assessment & Plan (1) Benign essential hypertension: Code(s): I10 - Essential (primary) hypertension Category: Medical (2) Palpitations: Code(s): R00.2 - Palpitations Category: Medical (3) Dyslipidemia: Code(s): E78.5 - Hyperlipidemia, unspecified Category: Medical (4) Hypovitaminosis D: Code(s): E55.9 - Vitamin D deficiency, unspecified Category: Medical Plan The plan includes conducting a stress test and a Holter monitor to evaluate the patient's intermittent palpitations and assess cardiac function over a 48-hour period. An ultrasound of the heart is also planned to check for any valvular abnormalities. The patient will be referred to cardiology for further evaluation and management of her cardiac symptoms. Additionally, a referral to nephrology is made for 24- hour blood pressure monitoring to better understand her hypertension management needs. No new medications are being started at this time, but her blood pressure will be re-evaluated in three weeks. Patient was informed and verbally consented to the use of an ambient scribe for clinic note documentation during this visit. Orders: Orders CA echo transthoracic complete Today R01.1 - Cardiac murmur, unspecified Referrals Nephrology Referral I10 - Essential (primary) hypertension Cardiology Referral R00.2 - Palpitations
[2024-09-25 12:45] VITALS: BP 152/80; BMI 24.5
== END 2024-09-25 13:26 | disposition home or self-care (01) ==
LOC: HO.HMCH 12:42
PROVIDERS: PCP Internal Medicine; Visit Provider Internal Medicine
DX: I10 Essential (primary) hypertension (principal); R00.2 Palpitations; E78.5 Hyperlipidemia, unspecified; E55.9 Vitamin D deficiency, unspecified

== ENCOUNTER → 2024-09-25 12:41 | Outpatient (BNVA) | payer MEDICARE, SELFPAY | PROVIDERS: PCP Internal Medicine; Visit Provider Internal Medicine | DX: I10 Essential (primary) hypertension (principal); R00.2 Palpitations; E78.5 Hyperlipidemia, unspecified; E55.9 Vitamin D deficiency, unspecified | CPT/HCPCS: 99212 ==

== ENCOUNTER 2024-09-30 14:21 | Outpatient (AMB) | payer MEDICARE, SELFPAY ==
[2024-09-30 14:25] VITALS: BP 140/70; PULSE 75; O2SAT 99; BMI 25.1
--- NOTE | 2024-09-30 14:25 | MHC.OFFVIS ---
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 She was referred by PCP for pulmonary evaluation for chronic cough. She reports cough has been present since March, without significant change and characterizes as dry. She denies dyspnea, wheezing or chest tightness. She denies chest congestion, fevers or chills. She denies known triggers. She denies prior h/o asthma/COPD or recurrent URIs. She endorses GERD however infrequent symptoms, has never trialed PPI. Prior CXR unremarkable. She denies seasonal allergies or post nasal drip. She denies occupational exposures. She denies any pertinent family history. 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 Patient also underwent home sleep study in 2019 which revealed mild to moderate MASTER with central apneas and recommendation for in lab titration study however patient had insurance coverage issues at the time and did not proceed. She continues with loud snoring and daytime fatigue. [facility] Medical History Pyelonephritis Pelvic pain in female BONIFACIO I (cervical intraepithelial neoplasia I) Impaired glucose tolerance Right elbow pain Vitamin D insufficiency Dyslipidemia Vitamin D deficiency GERD (gastroesophageal reflux disease) Hypercholesterolemia Hypertension Surgical History Hx of colonoscopy H/O right breast biopsy Family History Father Lung cancer Mother Stroke Hypertension Social History Household Members: None Housing: House Do you presently have visiting nurse or other home services: No Alcohol intake: never Patient Tobacco Use Status: Former Tobacco user Tobacco use type: Cigarette e-Cigarette/Vaping Use: Never Used Second Hand Smoke Exposure: No Advance Directives Date on File: 11/17/23 service: No Current occupational status: employed Current occupational exposures/hazards: No Sexual orientation: Straight/Heterosexual Gender identity: Female Cognitive needs: No Hearing needs: No Vision needs: Yes Review of Systems Const Denies chills, Denies excessive sweating, Denies fever(s), Denies headache(s) and Denies night sweats Eyes Denies dry eyes, Denies irritation and Denies itchy eyes ENT Reports Normal hearing present and Denies headache(s) Card Denies chest pain, Denies chest pain at rest, Denies chest pain with activity, Denies claudication, Denies leg edema, Denies dyspnea, Denies dyspnea on exertion, Denies orthopnea and Denies paroxysmal nocturnal dyspnea Resp Denies chest congestion, Denies excessive phlegm production, Denies pain on inspiration, Denies pain with cough, Denies dyspnea, Denies dyspnea on exertion, Denies stridor and Denies wheezing Musc Denies myalgias Neuro Reports Normal hearing present and Denies headache(s) Endo Denies excessive sweating Kailash/Lymph Denies lymphadenopathy Aller/Immun Denies itchy eyes, Denies seasonal rhinorrhea and Denies wheezing Physical Exam Vital Signs: Last Vital Signs Pulse 75 09/30/24 14:25 BP 140/70 H 09/30/24 14:25 Pulse Ox 99 09/30/24 14:25 Oxygen Delivery Method Room Air 09/30/24 14:25 BMI result Body Mass Index 25.1 Const General: cooperative, healthy appearing, comfortable, no acute distress, well developed and alert Orientation/consciousness: patient oriented x3 Limitations: no limitations HEENT Head: Yes normal to inspection, Yes normocephalic and Yes atraumatic Ears: hearing grossly normal bilaterally and external ears normal Eyes General: appearance normal, both eyes and all related structures Eyelids: Yes eyelids normal Sclerae: sclerae normal EOM: EOMs intact bilaterally Neck Neck: Yes normal visual inspection and Yes no lymphadenopathy Lymphatic: no lymphadenopathy noted Chest Chest palpation & inspection: normal inspection of the chest Resp Effort & Inspection: normal respiratory effort, able to speak in complete sentences, no audible wheezes, no cough, no stridor, not tachypneic, no tripod positioning and no use of accessory muscles Auscultation: diminished lung sounds Cardio Jugular venous distension: no JVD Rate: regular rate Rhythm: regular rhythm Skin Other: warm, dry General skin exam: no rashes or lesions noted Neuro General: patient oriented x3 Cranial nerves: Yes Normal hearing present Cognition (Neuro): normal cognition Gait exam (Neuro): Normal gait present Extrem General: Yes normal to inspection, Yes capillary refill normal, Yes no clubbing, cyanosis or edema and Yes no pedal edema Psych Appearance: grossly normal and well kempt Speech and movement: Normal speech and movement present and Clear speech present Affect: normal affect Attitude: cooperative Thought process: Normal thought process present Thought content: Normal thought content present Insight: Good insight present (Psych) Judgement: Good judgement present (Psych) Assessment & Plan Assessment & Plan (1) Chronic coughing: Code(s): R05.3 - Chronic cough Category: Medical (2) Personal history of tobacco use: Code(s): Z87.891 - Personal history of nicotine dependence Category: Social Hx (3) Daytime somnolence: Code(s): R40.0 - Somnolence Category: Medical (4) Loud snoring: Code(s): R06.83 - Snoring Category: Medical Plan Jazmyn presents for pulmonary evaluation for chronic cough that has been unchanged for the last 6 months. Will send for PFT to assess for any obstructive defect given smoking history. CXR unremarkable. Will send for Chest CT to assess for any underlying parenchymal conditions contributing to cough given possible occupational exposures x 25 years. Prior home sleep study revealed complex sleep apnea and patient interested in pursuing repeat testing as prior was from 2019. Will send for in lab sleep study for further evaluation. All questions were answered and patient is in agreement of plan. Will follow up to review results or sooner if needed. Orders: Orders CT chest wo IV con Today R05.3 - Chronic cough PFT pulmonary function test Today R05.3 - Chronic cough RT PSG in-lab sleep study Today R06.83 - Snoring, R40.0 - Somnolence Coding Level of Care Code New Pt Level 4 (96478) Diagnoses Chronic coughing R05.3 Personal history of tobacco use Z87.891 Daytime somnolence R40.0 Loud snoring R06.83
== END 2024-09-30 14:53 | disposition home or self-care (01) ==
LOC: HO.HPS 14:22
PROVIDERS: PCP Internal Medicine; Referring Provider Internal Medicine; Visit Provider Nurse Practitioner Family
DX: R05.3 Chronic cough (principal); Z87.891 Personal history of nicotine dependence; R40.0 Somnolence; R06.83 Snoring
CPT/HCPCS: 99204

== ENCOUNTER → 2024-09-30 14:21 | Outpatient (BNVA) | payer MEDICARE, SELFPAY | PROVIDERS: PCP Internal Medicine; Referring Provider Internal Medicine; Visit Provider Nurse Practitioner Family | DX: R05.3 Chronic cough (principal); Z87.891 Personal history of nicotine dependence; K21.9 Gastro-esophageal reflux disease without esophagitis; I10 Essential (primary) hypertension | CPT/HCPCS: 99202 ==

== ENCOUNTER 2024-10-09 10:54 | Outpatient (REF) | payer MEDICARE, SELFPAY | END 2024-10-09 10:55 | disposition home or self-care (01) | LOC: HO.LNP 10:54 | PROVIDERS: PCP Internal Medicine; Visit Provider Advanced Practice Midwife | DX: Z01.419 Encounter for gynecological examination (general) (routine) without abnormal findings (principal); N87.0 Mild cervical dysplasia; R87.810 Cervical high risk human papillomavirus (HPV) DNA test positive | CPT/HCPCS: 87626; 88175; G0101; Q0091 ==

== ENCOUNTER 2024-10-09 10:54 | Outpatient (AMB) | payer MEDICARE, SELFPAY ==
--- NOTE | 2024-10-09 10:56 | A.OFFVIS_ITS ---
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 Family Resource Management Specialist concerns: None. Currently not sexually active in years. Denies any vaginal dryness or irritation. STI testing offered; she declines. Attempting to eat a healthy diet with calcium and vitamin D and stays active with exercise. Last pap smear; 2023 colpo, history of BONIFACIO 1 positive HPV. Last mammogram; 2019. Colonoscopy is UTD. Denies any family history of breast, ovarian or colon cancer. [facility] Medical History BONIFACIO I (cervical intraepithelial neoplasia I) Encounter for well woman exam with routine gynecological exam Pyelonephritis Pelvic pain in female Impaired glucose tolerance Right elbow pain Vitamin D insufficiency Dyslipidemia Vitamin D deficiency GERD (gastroesophageal reflux disease) Hypercholesterolemia Hypertension Surgical History Hx of colonoscopy H/O right breast biopsy Family History Father Lung cancer Mother Stroke Hypertension Social History Household Members: None Housing: House Do you presently have visiting nurse or other home services: No Alcohol intake: never Patient Tobacco Use Status: Former Tobacco user Tobacco use type: Cigarette e-Cigarette/Vaping Use: Never Used Second Hand Smoke Exposure: No Advance Directives Date on File: 11/17/23 service: No Current occupational status: employed Current occupational exposures/hazards: No Sexual orientation: Straight/Heterosexual Gender identity: Female Cognitive needs: No Hearing needs: No Vision needs: Yes Female Reproductive History Menstrual control method: none Total pregnancies: 3 Full term: 3 Date of last pap smear: 05/08/23 (+ HPV ) History of abnormal pap smear: Yes (01/17 ascus +hpv 02/16 colpo cin1) Date of Mammogram: 03/15/24 (bi rad 1) Date of last Bone Density Screenin03/02/24 Review of Systems Const All systems reviewed & are unremarkable except as noted in HPI and below Reports as per HPI Eyes Reports no additional complaints ENT Reports no additional complaints Card Reports no additional complaints Resp Reports no additional complaints GI Reports as per HPI and Reports no additional complaints Reports as per HPI Musc Reports no additional complaints Skin/Breast Reports as per HPI Neuro Reports no additional complaints Psych Reports no additional complaints Endo Reports no additional complaints Kailash/Lymph Reports no additional complaints Aller/Immun Reports no additional complaints Physical Exam Vital Signs: Last Vital Signs BP 136/80 10/09/24 11:03 BMI result Body Mass Index 24.8 Const General: cooperative, healthy appearing, no acute distress, well developed and alert Orientation/consciousness: patient oriented x3 HEENT Head: Yes normal to inspection Eyes General: appearance normal, both eyes and all related structures Neck Neck: Yes normal visual inspection Thyroid: Thyroid normal Chest Chest palpation & inspection: normal inspection of the chest and other (no puckering, dimpling, peau de orange, retraction, discharge, masses) Breast/axilla inspection: normal inspection of the breasts Breast/axilla palpation: normal palpation of the breasts Resp Effort & Inspection: normal respiratory effort GI Inspection: Yes normal to inspection Palpation (GI): Soft to palpation Rectal Exam - Female: deferred General: Yes bladder normal to palpation External Female Exam: normal external appearance and normal appearance of the urethra Speculum Exam - Vagina: normal appearance of the vagina, normal palpation, normal vaginal discharge and vagina atrophic Speculum Exam - Cervix: normal appearance of the cervix, normal palpation and Other cervical findings present (Bled slightly with Pap, atrophic changes) Bimanual exam- vagina & uterus: normal bimanual exam, normal palpation, uterine size normal, bladder normal to palpation, normal palpation and non-tender Bimanual Exam- Adnexa, other: no masses Skin General skin exam: no rashes or lesions noted Rashes: no rashes Neuro General: patient oriented x3 Cognition (Neuro): normal cognition Extrem General: Yes normal to inspection Psych Attitude: cooperative Thought process: Normal thought process present Assessment & Plan Assessment & Plan (1) BONIFACIO I (cervical intraepithelial neoplasia I): Code(s): N87.0 - Mild cervical dysplasia Category: Medical Plan: Discussed abnormal Pap and HPV regression, follow up, and management. The patient expressed understanding and agreement with the plan of care. All of her questions and concerns were addressed to the best of my ability. (2) ASCUS with positive high risk HPV cervical: Code(s): R87.610 - Atypical squamous cells of undetermined significance on cytologic smear of cervix (ASC-US); R87.810 - Cervical high risk human papillomavirus (HPV) DNA test positive Category: Medical Plan: Pap obtained, await results for final plan of care. (3) Encounter for well woman exam with routine gynecological exam: Code(s): Z01.419 - Encounter for gynecological examination (general) (routine) without abnormal findings Category: Medical Plan Discussed: Current recommendations for pap smears per ASCCP guidelines. Breast awareness, periodic self breast exams and yearly mammogram. Maintain a healthy lifestyle, well balanced diet including Calcium 1,200 mg and Vitamin D 600 IU daily, and routine exercise. Contact the office with any postmenopausal bleeding. Patient verbalizes understanding and agrees to the plan of care. She was given opportunity to ask questions and all questions were answered to the best of my ability. RTO in 1 year for annual sales and service agent exam. This note is constructed using voice recognition software. While every effort has been made to ensure accuracy, real estate agent errors may have been included. Orders: Orders Pap Smear Today N87.0 - Mild cervical dysplasia, Z01.419 - Encounter for gynecological examination (general) (routine) without abnormal findings HPV High risk Today N87.0 - Mild cervical dysplasia, Z01.419 - Encounter for gynecological examination (general) (routine) without abnormal findings Coding Level of Care Code Est Pt Prev Care >65y(92082) Diagnoses BONIFACIO I (cervical intraepithelial neoplasia I) N87.0 ASCUS with positive high risk HPV cervical R87.610; R87.810 Encounter for well woman exam with routine gynecological exam Z01.419
[2024-10-09 11:03] VITALS: BP 136/80; BMI 24.8
== END 2024-10-09 11:48 | disposition home or self-care (01) ==
LOC: HO.HWS 10:55
PROVIDERS: PCP Internal Medicine; Visit Provider Advanced Practice Midwife
DX: Z91.89 Other specified personal risk factors, not elsewhere classified (principal); R87.610 Atypical squamous cells of undetermined significance on cytologic smear of cervix (ASC-US)
CPT/HCPCS: G0101; Q0091

== ENCOUNTER 2024-10-10 15:39 | Outpatient (AMB) | payer MEDICARE, SELFPAY ==
[2024-10-10 15:45] VITALS: BP 142/68; PULSE 68; O2SAT 98; BMI 24.6
--- NOTE | 2024-10-10 15:45 | HO.NEPHOV_ITS ---
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 Her blood pressure is generally well-controlled at home, with readings around 120/60 mmHg, but she has experienced episodes of significant elevation, reaching up to 220/100 mmHg. These episodes have led to two emergency room visits, where no significant abnormalities were found, and she was discharged with medication adjustments. The patient has been experiencing heart palpitations, which she associates with episodes of high blood pressure. She denies any history of surgeries, sweating, lightheadedness, urinary issues, or leg swelling. She has recently quit alcohol consumption approximately 50 days ago. The patient is currently on hydrochlorothiazide for hypertension management, but notes that increasing the dose causes her blood pressure to drop too low. 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 [facility] Medical History BONIFACIO I (cervical intraepithelial neoplasia I) Encounter for well woman exam with routine gynecological exam Pyelonephritis Pelvic pain in female Impaired glucose tolerance Right elbow pain Vitamin D insufficiency Dyslipidemia Vitamin D deficiency GERD (gastroesophageal reflux disease) Hypercholesterolemia Hypertension Surgical History Hx of colonoscopy H/O right breast biopsy Family History Father Lung cancer Mother Stroke Hypertension Social History Household Members: None Housing: House Do you presently have visiting nurse or other home services: No Alcohol intake: never Patient Tobacco Use Status: Former Tobacco user Tobacco use type: Cigarette e-Cigarette/Vaping Use: Never Used Second Hand Smoke Exposure: No Advance Directives Date on File: 11/17/23 service: No Current occupational status: employed Current occupational exposures/hazards: No Sexual orientation: Straight/Heterosexual Gender identity: Female Cognitive needs: No Hearing needs: No Vision needs: Yes Review of Systems Const Denies anorexia, Denies fever(s) and Denies weakness Eyes Denies blurry vision Card Denies no additional complaints, Reports rapid heart rate, Denies pedal edema, Denies lightheadedness and Denies dyspnea Resp Reports no additional complaints, Reports cough and Denies dyspnea GI Denies melena and Denies diarrhea Denies hematuria Musc Denies tingling Skin/Breast Denies rash Neuro Denies focal weakness, Denies tingling, Denies tremor(s) and Denies weakness Endo Denies flushing Physical Exam Vital Signs: Last Vital Signs Pulse 68 10/10/24 15:45 BP 142/68 H 10/10/24 15:45 Pulse Ox 98 10/10/24 15:45 Oxygen Delivery Method Room Air 10/10/24 15:45 BMI result Body Mass Index 24.6 Const General: comfortable Nutritional Appearance: well nourished Orientation/consciousness: patient oriented x3 HEENT Head: No normal to inspection Mouth: moist mucous membranes Neck Neck: Yes supple and Yes no JVD Resp Auscultation: clear to auscultation bilaterally and no rales Cardio Jugular venous distension: no JVD Palpation: no palpable S3 and no palpable S4 Heart sounds: no rubs GI Palpation (GI): Soft to palpation and nontender Percussion: No Fluid wave present General: Yes no CVA tenderness Back/Spine/Pelvis Back: no CVA tenderness Skin General skin exam: no rashes or lesions noted Neuro General: patient oriented x3 Extrem General: Yes no pedal edema and No clubbing Results Reviewed Results Reviewed: CT scan 2023 CT/CT abdomen pelvis w IV con IMPRESSION: 1. Multiple wedge-shaped areas of hypoattenuation are present in both kidneys. The most likely diagnosis is multifocal bacterial nephritis (i.e, Pyelonephritis) along with renal infarcts. 2. 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 3. Degenerative changes in the spine. Nephrology Results: Hgb, (12.0-16.0) 12.6 g/dl 09/05/24 WBC, (4.8-10.8) 6.6 X10*3/uL 09/05/24 Plt Count, (160-400) 201 X10*3/uL 09/05/24 Sodium, (135-145) 141 mmol/L 09/05/24 Potassium, (3.3-5.1) 3.4 mmol/L 09/05/24 Chloride, (96-108) 104 mmol/L 09/05/24 Carbon Dioxide, (22-29) 28 mmol/L 09/05/24 BUN, (9-16) 25 mg/dL H 09/05/24 Creatinine, (0.5-1.4) 1.05 mg/dL 09/05/24 Calcium, (8.4-10.2) 9.5 mg/dL 09/05/24 Assessment & Plan Assessment & Plan (1) Hypertension: Comment: no meds-states only high in md offices Code(s): I10 - Essential (primary) hypertension Category: Medical (2) Benign essential hypertension: Code(s): I10 - Essential (primary) hypertension Category: Medical (3) Palpitations: Code(s): R00.2 - Palpitations Category: Medical Plan 69-year-old woman with borderline hypertension. At home her blood pressure has been in the normal range. However the office readings elevated. This clearly raises the suspicion for white coat effect. However she has been experiencing palpitations. She has had spiking blood pressure in the range of 220 mm Hg. Secondary causes should be evaluated. Check metanephrines and 24 urine collection for catecholamines. In the past she had a CT scan which showed wedge-shaped deformities in the kidneys suggestive of either pyelonephritis or infarcts. We will check plasma renin and serum aldosterone as well.. Today I have not made any changes to her medications. Encouraged her to stay on low-sodium diet. Further workup will be determined by the outcome of the baseline investigations. Thank you Orders: Orders Metanephrines, 24hr Urine Today I10 - Essential (primary) hypertension Cortisol, Free 24Hr Urine Today I10 - Essential (primary) hypertension Aldosterone, 24Hr Urine Today I10 - Essential (primary) hypertension AMB 24 HR B/P Monitor PLACEMENT Today I10 - Essential (primary) hypertension Metanephrines, Plasma 3 Days I10 - Essential (primary) hypertension, R00.2 - Palpitations Catecholamines, Frac., Plasma 3 Days I10 - Essential (primary) hypertension, R00.2 - Palpitations VMA Today I10 - Essential (primary) hypertension Catecholamines, Frac., 24Ur Today I10 - Essential (primary) hypertension Aldosterone 3 Days I10 - Essential (primary) hypertension, R00.2 - Palpitations Renin 3 Days I10 - Essential (primary) hypertension, R00.2 - Palpitations Coding Level of Care Code New Pt Level 4 (89664) Diagnoses Essential hypertension I10 Benign essential hypertension I10 Palpitations R00.2
== END 2024-10-10 15:59 | disposition home or self-care (01) ==
LOC: HO.HKA 15:40
PROVIDERS: PCP Internal Medicine; Visit Provider Internal Medicine Hypertension Specialist
DX: I10 Essential (primary) hypertension (principal); R00.2 Palpitations
CPT/HCPCS: 99204

== ENCOUNTER → 2024-10-10 15:39 | Outpatient (BNVA) | payer MEDICARE, SELFPAY | PROVIDERS: PCP Internal Medicine; Visit Provider Internal Medicine Hypertension Specialist | DX: I10 Essential (primary) hypertension (principal); R00.2 Palpitations | CPT/HCPCS: 99202 ==

== ENCOUNTER → 2024-10-18 15:40 | Outpatient (BNVA) | payer MEDICARE, SELFPAY | PROVIDERS: PCP Internal Medicine; Visit Provider Internal Medicine Hypertension Specialist | DX: Z46.89 Encounter for fitting and adjustment of other specified devices (principal) | CPT/HCPCS: 93786; 93788 ==

== ENCOUNTER 2024-10-29 08:42 | Outpatient (REF) | payer MEDICARE, SELFPAY ==
[2024-11-03 13:34] LABS: Metanephrine, Free 24U 100 mcg/24 h (90-315); Normetanephrine, Free 24U 228 mcg/24 h (122-676); Total Metanephrine, Free 24U 328 mcg/24 h (224-832); Total Volume 24U 2700 mL
[2024-11-04 16:09] LABS: Total Volume, 24 Hr Urine 2700 mL
[2024-11-04 16:33] LABS: CATF, 24 Ur Volume 2700 mL; CATF-24Ur Creatinine 1.43 g/24 h (0.50-2.15); Catecholamines,Tot. (E+NE) 24U 33 mcg/24 h (26-121); Dopamine, 24 Ur 190 mcg/24 h (52-480); Epinephrine, 24 Ur 10 mcg/24 h (2-24); Norepinephrine, 24 Ur 23 mcg/24 h (15-100)
[2024-11-08 04:19] LABS: Aldosterone, 24Hr Urine 2.0 mcg/24 h; Creatinine 24Hr Urine 1.42 g/24 h (0.50-2.15); Total Volume 2700 mL
== END 2024-10-29 08:43 | disposition home or self-care (01) ==
LOC: HO.LNP 08:42
PROVIDERS: Visit Provider Internal Medicine Hypertension Specialist
DX: I10 Essential (primary) hypertension (principal)
CPT/HCPCS: 82088; 82384; 82530; 83835

== ENCOUNTER → 2024-11-01 19:30 | Outpatient (REF) | payer MEDICARE, SELFPAY | LOC: HO.SL 19:30 | PROVIDERS: PCP Internal Medicine; Visit Provider Nurse Practitioner Family | DX: G47.33 Obstructive sleep apnea (adult) (pediatric) (principal); R40.0 Somnolence; R06.83 Snoring | CPT/HCPCS: 95810 ==

== ENCOUNTER → 2024-11-01 21:16 | Outpatient (BNV) | payer MEDICARE, SELFPAY | PROVIDERS: PCP Internal Medicine; Visit Provider Internal Medicine | DX: G47.33 Obstructive sleep apnea (adult) (pediatric) (principal); R06.83 Snoring | CPT/HCPCS: 95810 ==

== ENCOUNTER → 2024-11-06 13:19 | Outpatient (REF) | payer MEDICARE, SELFPAY ==
--- NOTE | 2024-11-06 13:22 | CA_ITS ---
Transthoracic Echocardiogram Patient (Last, First, Middle): Jazmyn Narvaez, Gender: F Date of : 1955 Age: 69 Procedure Date: 11/06/2024 Procedure Type: Transthoracic Echocardiogram Location: OP Height: 165.1 cm Weight: 67.13 kg BSA: 1.74 m2 Heart Rate: bpm BP: 128 / 60 mmHg Web Producer: Referring MD: Willow Murphy MD String Laster: Red Garcia MD Symptoms: R01.1 - Cardiac murmur, unspecified Study Quality: Adequate ECG Rhythm: Sinus Conclusions: - 1. Normal LV ejection fraction of 60 65% with impaired relaxation filling pattern 2. Normal cardiac valvular Dopplers 3. Normal RV systolic pressure 4. No gross pericardial effusion Findings Left Ventricle Normal left ventricular size, thickness, and systolic function. The visually estimated ejection fraction is between 60-65%. Spectral Doppler is indicative of an impaired relaxation filling pattern. E/E prime ratio is between 8 and 15 consistent with indeterminate filling pressures. Right Ventricle Normal right ventricular cavity size and systolic function. Atria Both atria are normal in size. There is lipomatous hypertrophy of the interatrial septum. There is no evidence of interatrial shunt. Aortic Valve The aortic valve structure and function is likely normal. There is no aortic valve stenosis. There is no aortic valve regurgitation. Mitral Valve Normal mitral valve structure and function. There is trace mitral valve regurgitation. There is no mitral valve stenosis. Pulmonic Valve The pulmonic valve was not well visualized. Tricuspid Valve Likely normal tricuspid valve structure and function. There is trace tricuspid valve regurgitation. The right ventricular systolic pressure is normal. The right ventricular systolic pressure is 20 mmHg. Normal right atrial pressure. There is no evidence of pulmonary hypertension. Great Vessels The pulmonary artery was not well visualized. There is no dilatation of the ascending aorta measuring 3.40 cm. Venous The inferior vena cava is normal in size and collapses greater than 50% with inspiration. Pericardium/Pleural There is no evidence of pericardial effusion. Prior Study Comparison No prior study available for comparison. Measurements 2D Linear Measurements IVSd: 0.86 0.6-0.9/0.6-1.0 cm LVIDd: 4.22 3.9-5.3/4.2-5.9 cm LVIDd Index: 2.43 2.4-3.2/2.2-3.1 cm/m2 LVIDs: 2.31 2.0-3.6 cm LVPWd: 0.84 0.7-1.1 cm Ao Root: 3.00 2.1-3.5 cm LA Diam: 3.30 2.7-3.8/3.0-4.0 cm LAIDs Index: 1.90 1.5-2.3 cm/m2 LV Mass: 136.96 67-162/88-224 g LV Mass Index: 78.71 43-95/49-115 g/m2 LVOT Diam: 2.00 3.0+(-)1.3 cm 2D Systolic Function EF 4C: 62.80 >55% EF 2C: 62.40 >55% EF BiP: 59.90 >55% Mitral Valve MV Pk E: 0.63 MV PK A: 0.91 MV Decel Time: 280.00 E/A: 0.70 E'Lateral: 5.77 E'Medial: 5.00 E/E' Med: 12.70 E/E' Lat: 11.00 PHT: 82.00 MVA PHT: 2.68 Decel [place]: 2.26 Aortic Valve AoV Pk Félix: 1.55 AoV Mn Félix: 1.02 AoV VTI: 0.37 AoV Pk Grad: 10.00 Aov Mn Grad: 5.00 DARION Cont.VTI: 1.91 LVOT LVOT Pk Félix: 0.99 LVOT Mn Félix: 0.61 LVOT VTI: 0.22 LVOT Pk Grad: 4.00 LVOT Mn Grad: 2.00 LVOT Diam: 2.00 LVOT Area: 3.14 Diastolic Function MV Pk E: 0.63 MV Pk A: 0.91 E/A: 0.70 E'Medial: 5.00 E/E' Med: 12.70 E' Laterial: 5.77 E/E' Lat: 11.00 Right Ventricle TAPSE (mm): 29.00 TVS' Félix: 14.00 Tricuspid Valve TR Pk Félix: 2.06 TR Pk Grad: 17.00 RA Press: 3.00 RVSP: 20.00 Great Vessels Aorta Ao Root-2D: 3.00 2.0-3.7 cm Ao Asc: 3.40 2.1-3.4 cm Pulmonary Valve PV Pk Félix: 0.96 Peak PV Grad: 4.00 Updated in Other Vendor System with Status of Final Red Garcia MD electronically signed on 11/06/2024 2:58:27 PM with status of Final
== END ==
LOC: HO.CARD 13:19
PROVIDERS: PCP Internal Medicine; Visit Provider Internal Medicine
DX: I48.92 Unspecified atrial flutter (principal); R01.1 Cardiac murmur, unspecified
CPT/HCPCS: 93225; 93306

== ENCOUNTER → 2024-11-06 13:22 | Outpatient (BNV) | payer MEDICARE, SELFPAY | PROVIDERS: PCP Internal Medicine; Visit Provider Internal Medicine Cardiovascular Disease | DX: R01.1 Cardiac murmur, unspecified (principal); I51.89 Other ill-defined heart diseases | CPT/HCPCS: 93306 ==

== ENCOUNTER 2024-11-12 15:56 | Outpatient (REF) | payer MEDICARE, SELFPAY ==
--- NOTE | ~2024-11-12 | CT_ITS ---
CLINICAL HISTORY: R05.3 - Chronic cough CT chest without contrast Comparison: CR - XR CHEST 2V - 09/05/24 19:49 EDT CR/MS/SR - XR CHEST 1V - 11/11/23 19:48 EDT CR/MS/SR - XR CHEST 1V - 12/29/22 18:17 EDT Findings: No mediastinal mass or lymphadenopathy. No cardiomegaly. Moderate calcified coronary artery disease. Normal size thoracic aorta. Mild to moderate calcified atherosclerotic disease. Trace biapical scarring. Calcified granuloma. Minimal amount of subsegmental atelectasis versus linear scarring at the lung bases. No pneumothorax or pleural effusion. No acute osseous or soft tissue abnormality. No acute pathology in the imaged portion of the upper abdomen. Impression: No acute findings. This document has been electronically signed by: Yarely Temple MD on 11/13/2024 16:39:29
== END 2024-11-12 15:57 | disposition home or self-care (01) ==
LOC: HO.CT 15:56
PROVIDERS: PCP Internal Medicine; Visit Provider Nurse Practitioner Family
DX: R05.3 Chronic cough (principal)
CPT/HCPCS: 71250

== ENCOUNTER → 2024-11-12 15:59 | Outpatient (BNV) | payer MEDICARE, SELFPAY | PROVIDERS: PCP Internal Medicine; Visit Provider Radiology Diagnostic Radiology | DX: R05.3 Chronic cough (principal) | CPT/HCPCS: 71250 ==

== ENCOUNTER 2024-11-14 15:51 | Outpatient (AMB) | payer MEDICARE, SELFPAY ==
[2024-11-14 15:55] VITALS: BP 146/60; PULSE 67; O2SAT 97; BMI 24.6
--- NOTE | 2024-11-14 15:55 | HO.NEPHOV ---
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 Accompanied by: Self / Same As Patient Allergies bee pollen (BEE STINGS) Allergy (Intermediate, Verified 11/14/24 15:57) Swelling PFSH Medical History BONIFACIO I (cervical intraepithelial neoplasia I) Encounter for well woman exam with routine gynecological exam Pyelonephritis Pelvic pain in female Impaired glucose tolerance Right elbow pain Vitamin D insufficiency Dyslipidemia Vitamin D deficiency GERD (gastroesophageal reflux disease) Hypercholesterolemia Hypertension Surgical History Hx of colonoscopy H/O right breast biopsy Family History Father Lung cancer Mother Stroke Hypertension Social History Household Members: None Housing: House Do you presently have visiting nurse or other home services: No Alcohol intake: never Patient Tobacco Use Status: Former Tobacco user Tobacco use type: Cigarette e-Cigarette/Vaping Use: Never Used Second Hand Smoke Exposure: No Advance Directives Date on File: 11/17/23 service: No Current occupational status: employed Current occupational exposures/hazards: No Sexual orientation: Straight/Heterosexual Gender identity: Female Cognitive needs: No Hearing needs: No Vision needs: Yes Coding
--- NOTE | 2024-11-14 15:59 | HO.NEPHOV_ITS ---
Vital Signs 11/14/24 15:55 Height 5 ft 5 in Weight 148 lb BMI 24.6 BP 146/60 H Blood Pressure Location Lt brachial Position Sitting Pulse 67 Pulse Source Pulse Oximeter Pulse Oximetry (%) 97 Oxygen Delivery Method Room Air Intake Visit Reasons: 4-5wk f/u w/labs-LVM Allergies bee pollen (BEE STINGS) Allergy (Intermediate, Verified 11/14/24 15:57) Swelling Medication List - Last Reconciled 11/14/24 by Jhon Walker MD biotin 1 mg PO DAILY cholecalciferol (vitamin D3) 25 mcg PO DAILY 90 days hydrochlorothiazide 25 mg PO DAILY 90 days simvastatin 10 mg PO BEDTIME 90 days HPI Comments Details: The patient is a 69-year-old female presenting with concerns regarding fluctuating blood pressure and associated heart palpitations. Her blood pressure is generally well-controlled at home, with readings around 120/60 mmHg, but she has experienced episodes of significant elevation, reaching up to 220/100 mmHg. These episodes have led to two emergency room visits, where no significant abnormalities were found, and she was discharged with medication adjustments. The patient has been experiencing heart palpitations, which she associates with episodes of high blood pressure. She denies any history of surgeries, sweating, lightheadedness, urinary issues, or leg swelling. She has recently quit alcohol consumption approximately 50 days ago. The patient is currently on hydrochlorothiazide for hypertension management, but notes that increasing the dose causes her blood pressure to drop too low. 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 11/14/24 - The patient is a 69-year-old female presenting with a follow-up for blood pressure management. - White coat hypertension: Elevated readings in clinical settings, normal at home. - Blood pressure monitoring: Daytime average 120/70 mmHg, nighttime average 112/63 mmHg, 24-hour average 118/68 mmHg. - Calcification of coronary arteries: Age-related changes detected during a heart scan. - Pulmonary evaluation: Conducted due to coughing with phlegm, no significant lung findings. COUNTS INCLUDE 234 BEDS AT THE [facility] Medical History BONIFACIO I (cervical intraepithelial neoplasia I) Encounter for well woman exam with routine gynecological exam Pyelonephritis Pelvic pain in female Impaired glucose tolerance Right elbow pain Vitamin D insufficiency Dyslipidemia Vitamin D deficiency GERD (gastroesophageal reflux disease) Hypercholesterolemia Hypertension Surgical History Hx of colonoscopy H/O right breast biopsy Family History Father Lung cancer Mother Stroke Hypertension Social History Household Members: None Housing: House Do you presently have visiting nurse or other home services: No Alcohol intake: never Patient Tobacco Use Status: Former Tobacco user Tobacco use type: Cigarette e-Cigarette/Vaping Use: Never Used Second Hand Smoke Exposure: No Advance Directives Date on File: 11/17/23 service: No Current occupational status: employed Current occupational exposures/hazards: No Sexual orientation: Straight/Heterosexual Gender identity: Female Cognitive needs: No Hearing needs: No Vision needs: Yes Physical Exam Vital Signs: Last Vital Signs Pulse 67 11/14/24 15:55 BP 146/60 H 11/14/24 15:55 Pulse Ox 97 11/14/24 15:55 Oxygen Delivery Method Room Air 11/14/24 15:55 BMI result Body Mass Index 24.6 Comfortable Neck supple no JVD. Lungs entry equal no rales. Heart S1-S2 heard no gallop or rub. Abdomen soft nontender. Neuro alert awake oriented. No asterixis. Extremities no edema. Office Procedures 24 B/P Monitor Interpretation Details: BP well controlled Evidence of white coat HTN present CPT: 03058 24 Hour Blood Pressure Monitor Reading Procedure code (CPT) selection complete Results Reviewed Results Reviewed: CT scan 2023 CT/CT abdomen pelvis w IV con IMPRESSION: 1. Multiple wedge-shaped areas of hypoattenuation are present in both kidneys. The most likely diagnosis is multifocal bacterial nephritis (i.e, Pyelonephritis) along with renal infarcts. 2. 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 3. Degenerative changes in the spine. Assessment & Plan Assessment & Plan (1) Hypertension: Comment: no meds-states only high in md offices Code(s): I10 - Essential (primary) hypertension Category: Medical (2) Benign essential hypertension: Code(s): I10 - Essential (primary) hypertension Category: Medical (3) Palpitations: Code(s): R00.2 - Palpitations Category: Medical (4) White coat syndrome with diagnosis of hypertension: Code(s): I10 - Essential (primary) hypertension Category: Medical Plan 69-year-old woman with borderline hypertension. At home her blood pressure has been in the normal range. However the office readings elevated. This clearly raises the suspicion for white coat effect. However she has been experiencing palpitations. She has had spiking blood pressure in the range of 220 mm Hg. Secondary causes should be evaluated. Check metanephrines and 24 urine collection for catecholamines. In the past she had a CT scan which showed wedge-shaped deformities in the kidneys suggestive of either pyelonephritis or infarcts. We will check plasma renin and serum aldosterone as well.. Today I have not made any changes to her medications. Encouraged her to stay on low-sodium diet. Further workup will be determined by the outcome of the baseline investigations. Thank you 11/14/24 - 69-year-old female with HTN - BAsed on 24 hr ABPM, she has White coat hypertension: Elevated readings in clinical settings, normal at home. - 24 hr Blood pressure monitoring: Daytime average 120/70 mmHg, nighttime average 112/63 mmHg, 24-hour average 118/68 mmHg. No change in anti hypertensive Moitor BP at home - of note Calcification of coronary arteries seen on CT scan Orders: Orders AMB 24 HR B/P Monitor INTERPRETATION Today I10 - Essential (primary) hypertension Aldosterone 2 Months I10 - Essential (primary) hypertension Basic Metabolic Panel 2 Months I10 - Essential (primary) hypertension Renin 2 Months I10 - Essential (primary) hypertension Coding Level of Care Code Est Pt Level 4 (74947) Diagnoses Essential hypertension I10 Benign essential hypertension I10 Palpitations R00.2 White coat syndrome with diagnosis of hypertension I10 CPT Codes - CPT: 85751 24 Hour Blood Pressure Monitor Reading ([id number])
== END 2024-11-14 16:08 | disposition home or self-care (01) ==
LOC: HO.HKA 15:52
PROVIDERS: PCP Internal Medicine; Visit Provider Internal Medicine Hypertension Specialist
DX: I10 Essential (primary) hypertension (principal); R00.2 Palpitations
CPT/HCPCS: 93790; 99214

== ENCOUNTER → 2024-11-14 15:51 | Outpatient (BNVA) | payer MEDICARE, SELFPAY | PROVIDERS: PCP Internal Medicine; Visit Provider Internal Medicine Hypertension Specialist | DX: I10 Essential (primary) hypertension (principal); R00.2 Palpitations | CPT/HCPCS: 99212 ==

== ENCOUNTER 2024-11-20 15:38 | Outpatient (REF) | payer MEDICARE, SELFPAY ==
--- OUTSIDE RECORDS SUMMARY | 2024-11-20 18:08 | XMS_ITS | Data Portability ---
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 Plan of Treatment Reminders Order Date Submit Date Provider Last Modified By Organization Details Last Modified Time Details Appointments Establish ed 30 2024 03:30P M TRACEE Wylie MD Not available Not available Not available Lab None recorded. Referral None recorded. Procedures None recorded. Surgeries None recorded. Imaging None recorded. Medication Orders None recorded. Patient TargetsNo targets recorded. Patient InstructionsNo instructions recorded. Reason for Referral None Reported. Problems Name Problem SNOMED Code Status Onset Date Resolution Date Notes Provider Name and Address Organization Details Recorded Time Tinnitus of vascular origin 765252811 Active 2017 Pulsatile tinnitus, bilateral; Note: Date Diagnosed: 10/23/2017 4:16 PM (H93.A3) Not Available [facility] 4 03:19:33 Tension-t ype headache 272080653 Active 2018 Tension headache NOS; Note: Date Diagnosed: 12/31/2018 3:26 PM (G44.209) Not Available [facility] 4 03:19:33 Chronic sialadeni tis 594833758 Active 2020 Chronic sialoadeni tis; Note: Date Diagnosed: 08/11/2020 3:39 PM (K11.21) Not Available [facility] 4 03:19:33 Dysphonia 92625929 Active 2021 Hoarseness ; Note: Date Diagnosed: 11/02/2021 5:23 PM (R49.0) Not Available [facility] 4 03:19:34 Posterior rhinorrhe a 77545738 Active 2021 Postnasal drip; Note: Date Diagnosed: 12/23/2021 5:52 PM (R09.82) Not Available [facility] 4 03:19:33 Acute sialoaden itis 848152033 Active 2024 TRACEE NOLEN MD [address], [facility] [place], [address] , [facility] - [facility] 5 10:50:18 Sialolith iasis 19951882 Active 2024 TRACEE NOLEN MD [address], [place], [address] , [facility] - [facility] 5 10:50:24 Problem Notes None recorded. Procedures Surgical History Date Name Laterality Status Provider Name and Address Organization Details Recorded Time salivary stone removal completed TRACEE NOLEN MD [address] [facility] [place],[facility], [place], [address], [facility] 03/15/2024 10:51:04 Imaging Results None recorded. Procedure [...] spray aerosol 2018 active Medicati on ID: [id number] D uration Value: 30 Brand Name: triamcin [...] mg tablet 2018 active Medicati on ID: [id number] D uration Value: 30 Brand Name: loratadi ne Send Method: E-Prescr ibed Sub s Allowed: subs OK Speci al Instruct ion: TAKE 1 TABLET BY MOUTH EVERY DAY Medi cationGe nericNam e: loratadi ne Not Available Not Available Not Available Flonase Allergy Relief 50 mcg/actua tion nasal spray,zia pension [place] 2 spray into both nostrils once a day 03/15 completed Medicati on ID: [id number] D uration Value: 30 Brand Name: Flonase Allergy Relief S end Method: E-Prescr ibed Sub s Allowed: subs OK Medic ationGen ericName : Flonase Allergy Relief Not Available Not Available Not Available Vitals Date Recorded Body height Body mass index (BMI) Body weight Provider Name and Address Organization Details Last Updated DateTime 03/15/2024 152.4 cm 28.5 kg/m2 56095.49 g Huber Stevenson [place] - [facility] 03/15/2024 10:28:53 Date Recorded Body height Body mass index (BMI) Body weight Provider Name and Address Organization Details Last Updated DateTime 07/03/2024 152.4 cm 28.5 kg/m2 23867.49 g Huber Stevenson [facility] 07/03/2024 15:44:41 Social History None recorded. Functional Status None recorded. Mental Status None recorded. Family History Nothing Reported. Medical History No medical history recorded. Gynecological HistoryNo gynecological history recorded. Obstetrics History GPAL:G 0 P 0 0 0 0 Past Encounters Encounter ID Performer Location Encounter Start Date Encounter Closed Date Diagnosis/Indication Diagnosis SNOMED-CT Code Diagnosis ICD10 Code Diagnosis IMO Codes Diagnosis Note [id number] TRACEE NOLEN MD [facility] on [address] [place] [address] 03/15/2024 10:01:34 03/15/2024 10:50:26 Acute sialoadenitis 598602160 K11.21 resolved, no purulence after stone removal Sialolithiasis 45166804 K11.5 informed consent for stone removal obtained, stone removed, she tolerated well, i encouraged hydration and massage, f/u 4 months for a recheck. no need for additional abx. [id number] TRACEE NOLEN MD [facility] on [address] [place] [address] 07/03/2024 15:42:30 07/03/2024 16:10:08 Sialolithiasis 08959228 K11.5 Resolved. Good salivary drainage on milking of the gland. I gave reassuranc e I do not see other stones or lesions. I will recheck in 6 months. Health Concerns Section Related Observation LastModified by Organization Detai ls LastModified Time None Recorded Concern Status LastModified by Organization Details LastModified Time None Recorded Advance Directives Directive None Recorded Payers Insurance Date Sequence Insurance Name Policy Number Policy Dai Covered Member ID Dai Member ID Guarantor Name 03/14/2024 2 [facility] Jazmyn Narvaez [id number] 51 Jazmyn Narvaez 07/03/2024 1 [place] [employer] Jazmyn Narvaez [id number] 2 Jazmyn Narvaez 07/03/[address] [facility] [id number] Jazmyn Narvaez [id number] 51 Jazmyn Narvaez Notes Date Note Type Note Provider Name and Address Organization Details Recorded Time 03/15/2024 text/html ROS as noted in the HPI She noted a little bump under the ventral surface of her [...] submandibular swelling after eating. TRACEE NOLEN MD 100 [facility],[address], [address], [place] - [facility] 03/15/2024 10:52:48 07/03/2024 text/html ROS as noted in the HPI She has a history of right submandibular transoral salivary stone removal in the office at the last visit. She denies any pain or swelling when she eats. She reports she had some dental work in [place] and reports some roughness on the right side of her floor of mouth. TRACEE NOLEN MD 100 [facility],[place] [address], [place], [address], [place] - [facility] 07/03/2024 16:10:20 OBGyn Episode No OBEpisode recorded.
== END 2024-11-20 15:39 | disposition home or self-care (01) ==
LOC: HO.LNP 15:38
PROVIDERS: PCP Internal Medicine; Visit Provider Obstetrics & Gynecology
DX: R87.612 Low grade squamous intraepithelial lesion on cytologic smear of cervix (LGSIL) (principal)
CPT/HCPCS: 57454; 88305

== ENCOUNTER 2024-11-20 15:38 | Outpatient (AMB) | payer MEDICARE, SELFPAY ==
--- NOTE | 2024-11-20 15:43 | A.OFFVIS_ITS ---
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 ([place]otte) Accompanied by: Daughter Allergies bee pollen (BEE STINGS) Allergy (Intermediate, Verified 11/20/24 15:46) Swelling HPI Comments Details: Presenting with abnormal Pap smear showing low-grade NIDIA can not exclude high- grade NIDIA /HPV positive, HPV 16/18 negative [facility] Medical History BONIFACIO I (cervical intraepithelial neoplasia I) Encounter for well woman exam with routine gynecological exam Pyelonephritis Pelvic pain in female Impaired glucose tolerance Right elbow pain Vitamin D insufficiency Dyslipidemia Vitamin D deficiency GERD (gastroesophageal reflux disease) Hypercholesterolemia Hypertension Surgical History Hx of colonoscopy H/O right breast biopsy Family History Father Lung cancer Mother Stroke Hypertension Social History Household Members: None Housing: House Do you presently have visiting nurse or other home services: No Alcohol intake: never Patient Tobacco Use Status: Former Tobacco user Tobacco use type: Cigarette e-Cigarette/Vaping Use: Never Used Second Hand Smoke Exposure: No Advance Directives Date on File: 11/17/23 service: No Current occupational status: employed Current occupational exposures/hazards: No Sexual orientation: Straight/Heterosexual Gender identity: Female Cognitive needs: No Hearing needs: No Vision needs: Yes Review of Systems Const All systems reviewed & are unremarkable except as noted in HPI and below Physical Exam General: Yes no CVA tenderness External Female Exam: normal external appearance and normal appearance of the urethra Speculum Exam - Vagina: normal appearance of the vagina, normal palpation, no lesions and no masses Speculum Exam - Cervix: normal appearance of the cervix, normal palpation, no lesions, no masses and nontender Bimanual exam- vagina & uterus: normal bimanual exam, normal palpation, uterine size normal, normal palpation, uterine shape normal, No Cervical tenderness present and non-tender Bimanual Exam- Adnexa, other: normal adnexae Back/Spine/Pelvis Back: no CVA tenderness Office Procedures Colposcopy Colposcopy: Pre-Procedure Counseling: Before beginning the procedure, I conducted comprehensive counseling with the patient. We thoroughly discussed the procedure itself, including its details, alternatives, and all associated risks. This included but not limited to the following complications such as bleeding, infection, and injury to the vagina, bladder, and vessels, as well as the potential need for transfusion with all its associated risks. Subsequently, the patient sign the consent. Pap smear result: LSIL can not exclude high-grade NIDIA, HPV positive, HPV 16/18 negative. Procedure: During the procedure, the following steps were performed: A speculum was inserted, and acetic acid was applied. Colposcopy was conducted, allowing visualization of the transformation zone. Acetowhite lesions were identified at the 11+12+1+3 o'clock position. Cervical biopsies were obtained from the 11+12+1+3 o'clock position, followed by an endocervical curettage (ECC). Vaginoscopy of the upper vagina revealed no evidence of aceto-white lesions. Hemostasis was achieved using Monsel solution, and the patient tolerated the procedure well. Post-Procedure Instructions: The patient was advised to promptly contact the office or the after hours answering service or go to the emergency room if experiencing a temperature exceeding 100.4?F, abdominal pain, nausea/vomiting, or bleeding. Additionally, the patient was instructed to abstain from vaginal intercourse and bathtub use. The patient confirmed understanding of these instructions. Discharge Instructions: The patient was instructed to schedule a follow-up appointment in 2 weeks for further evaluation and management. Please note that this note was generated using a voice recognition program, and errors may have occurred during supervisor billposting. [id number] of cervix including upper vagina with biopsy and ECC Procedure code (CPT) selection complete Assessment & Plan Assessment & Plan (1) LGSIL on Pap smear of cervix: Comment: Cannot exclude high-grade NIDIA HPV positive, HPV 16/18 negative Code(s): R87.612 - Low grade squamous intraepithelial lesion on cytologic smear of cervix (LGSIL) Category: Medical Plan: Discussed with the patient the result of her abnormal pap, its significance, risk of progression, persistence, and regression. the false positive/negative rate of a Pap smear as a screening test in detecting cervical cancer and the indication for a diagnostic test -colposcopy, biopsy, endocervical curettage. The patient verbalized understanding and agreed with the plan, all questions answered. Colposcopy, biopsy /ECC done, see procedure note Orders: Orders AMB Colposcopy Today R87.612 - Low grade squamous intraepithelial lesion on cytologic smear of cervix (LGSIL) Coding Level of Care Code Procedure Only Diagnoses LGSIL on Pap smear of cervix R87.612 CPT Codes Colposcopy - CPT: 61080-Lkfpedwsk of cervix including upper vagina with biopsy and ECC ([id number])
== END 2024-11-20 16:33 | disposition home or self-care (01) ==
LOC: HO.HWS 15:38
PROVIDERS: PCP Internal Medicine; Visit Provider Obstetrics & Gynecology
DX: R87.612 Low grade squamous intraepithelial lesion on cytologic smear of cervix (LGSIL) (principal)
CPT/HCPCS: 57454

== ENCOUNTER 2024-12-06 15:46 | Outpatient (REF) | payer MEDICARE, SELFPAY ==
--- NOTE | 2024-12-06 15:49 | PFT_ITS ---
Flows: FEV1: 97 % of predicted at 2.27 L FVC: 108 % of predicted at 3.27 L FEV1/FVC: 69 % Bronchodilator response: Present in small to medium airways only Volumes: Total lung capacity: 110 % of predicted at 5.71 L Residual volume: 123 % of predicted at 2.42 L Slow vital capacity: 103 % of predicted at 3.29 L Expiratory reserve volume: 86 % of predicted at 0.67 L Diffusion capacity: Normal Impression: Mild obstructive ventilatory defect with bronchodilator response present in small to medium airways only. Increased residual volume suggests air trapping. MTDD
[2024-12-06 16:32] VITALS: PULSE 62; O2SAT 97
== END 2024-12-06 15:47 | disposition home or self-care (01) ==
LOC: HO.RESP 15:46
PROVIDERS: PCP Internal Medicine; Visit Provider Nurse Practitioner Family
DX: R05.3 Chronic cough (principal); Z87.891 Personal history of nicotine dependence
CPT/HCPCS: 94060; 94640; 94727; 94729

== ENCOUNTER → 2024-12-06 15:49 | Outpatient (BNV) | payer MEDICARE, SELFPAY | PROVIDERS: PCP Internal Medicine; Visit Provider Internal Medicine Pulmonary Disease | DX: J98.4 Other disorders of lung (principal) | CPT/HCPCS: 94060; 94727; 94729 ==

== ENCOUNTER 2024-12-20 15:16 | Outpatient (AMB) | payer MEDICARE, SELFPAY ==
--- NOTE | 2024-12-20 15:29 | A.OFFVIS_ITS ---
Vital Signs 12/20/24 15:31 Height 5 ft 5 in Weight 148 lb BMI 24.6 Intake Visit Reasons: colpo results Patient Registration Specialist Required: No Information Interpreted: non-clinical & clinical Chief Of Safety And Protection: Chief Of Safety And Protection Present Accompanied by: Daughter Allergies bee pollen (BEE STINGS) Allergy (Intermediate, Verified 12/20/24 15:30) Swelling Is last menstrual period known: Yes Last menstrual period: 12/26/19 Post menopausal: Yes Patient : No Do you need a note to return to daycare/school/sports/work: Yes (for surgery on monday) HPI Comments Details: Presenting post colpo for follow-up. The patient is doing well with no complaints. The pathology showed the following: A. Endocervix, curettage: Scant few endocervical glands, negative for squamous intraepithelial lesion. B. Cervix, 1 o'clock, biopsy: Squamous mucosa with atrophic changes, acute inflammation and reactive epithelial changes; no endocervical component seen; negative for squamous intraepithelial lesion. C. Cervix, 3 o'clock, biopsy: Squamous mucosa with atrophic changes and reactive epithelial changes; no endocervical component seen; negative for squamous intraepithelial lesion. D. Cervix, 11 o'clock, biopsy: Squamous mucosa with atrophic changes and reactive epithelial changes; no endocervical component seen; negative for squamous intraepithelial lesion. E. Cervix, 12 o'clock, biopsy: Squamous mucosa with atrophic changes, acute inflammation and reactive epithelial changes; no endocervical component seen; negative for squamous intraepithelial lesion. COMMENT: The atypical cells noted on the patient's previous Pap ([id number]; LSIL; HPV+) are not seen in the current biopsy material [facility] History BONIFACIO I (cervical intraepithelial neoplasia I) Encounter for well woman exam with routine gynecological exam Pyelonephritis Pelvic pain in female Impaired glucose tolerance Right elbow pain Vitamin D insufficiency Dyslipidemia Vitamin D deficiency GERD (gastroesophageal reflux disease) Hypercholesterolemia Hypertension Surgical History Hx of colonoscopy H/O right breast biopsy Family History Father Lung cancer Mother Stroke Hypertension Social History Household Members: None Housing: House Do you presently have visiting nurse or other home services: No Alcohol intake: never Patient Tobacco Use Status: Former Tobacco user Tobacco use type: Cigarette e-Cigarette/Vaping Use: Never Used Second Hand Smoke Exposure: No Advance Directives Date on File: 11/17/23 service: No Current occupational status: employed Current occupational exposures/hazards: No Sexual orientation: Straight/Heterosexual Gender identity: Female Cognitive needs: No Hearing needs: No Vision needs: Yes Female Reproductive History Menstrual Date of last menstrual period: 12/26/19 Total pregnancies: 2 Full term: 2 Review of Systems Const All systems reviewed & are unremarkable except as noted in HPI and below Reports as per HPI and Reports no additional complaints Card Reports as per HPI and Reports no additional complaints Resp Reports as per HPI and Reports no additional complaints GI Reports no additional complaints Reports no additional complaints Physical Exam Const General: cooperative, healthy appearing and comfortable Resp Effort & Inspection: normal respiratory effort Auscultation: clear to auscultation bilaterally Percussion: percussion normal Cardio Palpation: normal PMI Rate: regular rate Rhythm: regular rhythm Heart sounds: no murmurs and no rubs Peripheral pulses: Peripheral pulses 2+ throughout GI Inspection: Yes normal to inspection Palpation (GI): Soft to palpation, nontender, no guarding, not rigid and No hepatosplenomegaly present Percussion: Yes normal to percussion Auscultation: normal bowel sounds Rectal Exam - Female: deferred Assessment & Plan Assessment & Plan (1) LGSIL on Pap smear of cervix: Comment: Cannot exclude high-grade NIDIA HPV positive, HPV 16/18 negative Negative pathology Code(s): R87.612 - Low grade squamous intraepithelial lesion on cytologic smear of cervix (LGSIL) Category: Medical Plan: Discussed with the patient the results of the pathology showing no evidence of dysplasia;given the discrepancy between cytology and pathology, options of treatment were discussed with the patient including either co testing versus LEEP possible cone with post cone ECC. All pros and cons, risks and benefits of each were discussed with the patient, the patient decided to proceed with LEEP, possible cone with post cone ECC. Will proceed with LEEP cone was post cone ECC. Discussed with the patient the procedure, its benefits and risks including bleeding, infection, possible need for blood transfusion with all its risk ( HIV, syphilis, Hepatitis, anaphylaxis shock, others..), injury to bladder, rectum, possible re-excision for positive margins, potential need for hysterectomy, possible future negative impact on fertility including ( cervical stenosis, incompetence , increase risk for c section 2ndary to cervical scarring and failure of dilatation), possible positive margin necessitating re-excision. Also discussed the patient options of anesthesia either paracervical block versus IV sedation/MAC, prefers to proceed with IV sedation/MAC. All questions answered, the patient verbalized understanding and signed the consent. Coding Level of Care Code Est Pt Level 3 (39139) Diagnoses LGSIL on Pap smear of cervix R87.612
[2024-12-20 15:31] VITALS: BMI 24.6
--- OUTSIDE RECORDS SUMMARY | 2024-12-20 16:50 | XMS_ITS | Data Portability ---
Author Organization [place] - [facility], Allergy Address [address] [address] Care Team Providers Care Physical Medicine Teacher Name Role Phone DIEGO GARCIA Referring Provider [...] Details Recorded Time Tinnitus of vascular origin 428471379 Active 2017 Pulsatile tinnitus, bilateral; Note: Date Diagnosed: 10/23/2017 4:16 PM (H93.A3) Not Available [facility] 4 03:19:33 Tension-t ype headache 329452132 Active 2018 Tension headache NOS; Note: Date Diagnosed: 12/31/2018 3:26 PM (G44.209) Not Available [facility] 4 03:19:33 Chronic sialadeni tis 765520970 Active 2020 Chronic sialoadeni tis; Note: Date Diagnosed: 08/11/2020 3:39 PM (K11.21) Not Available [facility] 4 03:19:33 Dysphonia 59715515 Active 2021 Hoarseness ; Note: Date Diagnosed: 11/02/2021 5:23 PM (R49.0) Not Available [facility] 4 03:19:34 Posterior rhinorrhe a 81669933 Active 2021 Postnasal drip; Note: Date Diagnosed: 12/23/2021 5:52 PM (R09.82) Not Available [facility] 4 03:19:33 Acute sialoaden itis 569834310 Active 2024 TRACEE NOLEN MD [address], [facility] [place], [address] , [facility] - [facility] 5 10:50:18 Sialolith iasis 99114933 Active 2024 TRACEE NOLEN MD [address], [place], [address] , [facility] - [facility] 5 10:50:24 Problem Notes None recorded. Procedures Surgical History Date Name Laterality Status Provider Name and Address Organization Details Recorded Time salivary stone removal completed TRACEE NOLEN MD 100 [facility] [place],[facility] 100, [place], [address], [facility] 03/15/2024 10:51:04 Imaging Results None recorded. [...] spray aerosol 2018 active Medicati on ID: [id number] D uration Value: 30 Brand Name: triamcin [...] mg tablet 2018 active Medicati on ID: [id number] D uration Value: 30 Brand Name: loratadi ne Send Method: E-Prescr ibed Sub s Allowed: subs OK Speci al Instruct ion: TAKE 1 TABLET BY MOUTH EVERY DAY Medi cationGe nericNam e: loratadi ne Not Available Not Available Not Available Flonase Allergy Relief 50 mcg/actua tion nasal spray,zia pension [place] 2 spray into both nostrils once a day 03/15 completed Medicati on ID: [id number] D uration Value: 30 Brand Name: Flonase Allergy Relief S end Method: E-Prescr ibed Sub s Allowed: subs OK Medic ationGen ericName : Flonase Allergy Relief Not Available Not Available Not Available Vitals Date Recorded Body height Body mass index (BMI) Body weight Provider Name and Address Organization Details Last Updated DateTime 03/15/2024 152.4 cm 28.5 kg/m2 70741.49 g Huber Stevenson [place] - [facility] 03/15/2024 10:28:53 Date Recorded Body height Body mass index (BMI) Body weight Provider Name and Address Organization Details Last Updated DateTime 07/03/2024 152.4 cm 28.5 kg/m2 11133.49 g Huber Stevenson [facility] 07/03/2024 15:44:41 Social History None recorded. Functional Status None recorded. Mental Status None recorded. Family History Nothing Reported. Medical History No medical history recorded. Gynecological HistoryNo gynecological history recorded. Obstetrics History GPAL:G 0 P 0 0 0 0 Past Encounters Encounter ID Performer Location Encounter Start Date Encounter Closed Date Diagnosis/Indication Diagnosis SNOMED-CT Code Diagnosis ICD10 Code Diagnosis IMO Codes Diagnosis Note [id number] TRACEE NOLEN [facility] [address] [place] [address] 2 03/15/2024 10:01:34 03/15/2024 10:50:26 Acute sialoadenitis 473694823 K11.21 resolved, no purulence after stone removal Sialolithiasis 77977675 K11.5 informed consent for stone removal obtained, stone removed, she tolerated well, i encouraged hydration and massage, f/u 4 months for a recheck. no need for additional abx. [id number] TRACEE NOLEN MD [facility] [address] [place] [address] 07/03/2024 15:42:30 07/03/2024 16:10:08 Sialolithiasis 19776164 K11.5 Resolved. Good salivary drainage on milking [...] Dai Member ID Guarantor Name 03/14/2024 2 [facility] Jazmyn Narvaez [id number] Jazmyn Narvaez 07/03/2024 1 [place] [employer] Jazmyn Narvaez [id number] 2 Jazmyn Narvaez 07/03/2024 2 [facility] [id number] Jazmyn Narvaez [id number] Jazmyn Narvaez Notes Date Note Type [...] swelling after eating. TRACEE NOLEN MD 100 [facility],[address], [address], [place] - [facility] 03/15/2024 10:52:48 07/03/2024 text/html ROS as noted in the HPI She has a history of right submandibular transoral salivary stone removal in the office at the last visit. She denies any pain or swelling when she eats. She reports she had some dental work in [place] and reports some roughness on the right side of her floor of mouth. TRACEE NOLEN MD 100 [facility],[place] [address], [place], [address], [place] - [facility] 07/03/2024 16:10:20 OBGyn Episode No OBEpisode recorded.
== END 2024-12-20 15:55 | disposition home or self-care (01) ==
LOC: HO.HWS 15:16
PROVIDERS: PCP Internal Medicine; Visit Provider Obstetrics & Gynecology
DX: R87.612 Low grade squamous intraepithelial lesion on cytologic smear of cervix (LGSIL) (principal)
CPT/HCPCS: 99213

== ENCOUNTER → 2024-12-20 15:16 | Outpatient (BNVA) | payer MEDICARE, SELFPAY | PROVIDERS: PCP Internal Medicine; Visit Provider Obstetrics & Gynecology | DX: R87.612 Low grade squamous intraepithelial lesion on cytologic smear of cervix (LGSIL) (principal) | CPT/HCPCS: 99212 ==

== ENCOUNTER 2024-12-23 14:45 | Outpatient (AMB) | payer MEDICARE, SELFPAY ==
--- NOTE | 2024-12-23 14:53 | MHC.OFFVIS ---
Vital Signs 12/23/24 14:54 Height 5 ft 5 in Weight 152 lb 1.903 oz BMI 25.3 BP 134/76 Blood Pressure Location Lt brachial Position Sitting Pulse 60 Pulse Source Pulse Oximeter Pulse Oximetry (%) 99 Oxygen Delivery Method Room Air Intake Visit Reasons: Cough/PFT Follow Up Allergies bee pollen (BEE STINGS) Allergy (Intermediate, Verified 12/23/24 14:57) Swelling HPI HPI Cough/PFT Follow Up: Details: Jazmyn is a pleasant 69 year old female, former 10 pack year smoker, quit 15 years ago with underlying HTN and GERD. She was referred by PCP for pulmonary evaluation for chronic cough. Since the last visit she reports decrease in cough and denies dyspnea, wheezing or chest tightness. Patient underwent home sleep study in 2019 which revealed mild to moderate AMSTER with central apneas and recommendation for in lab titration study however patient had insurance coverage issues at the time and did not proceed. She continues with loud snoring and daytime fatigue, recently had sleep study performed, ordered by PCP, however results not available today. Today she presents to review PFT and Chest CT results. Denies any visits to urgent care or hospitalizations related to respiratory distress since the last visit. [facility] Medical History BONIFACIO I (cervical intraepithelial neoplasia I) Encounter for well woman exam with routine gynecological exam Pyelonephritis Pelvic pain in female Impaired glucose tolerance Right elbow pain Vitamin D insufficiency Dyslipidemia Vitamin D deficiency GERD (gastroesophageal reflux disease) Hypercholesterolemia Hypertension Surgical History Hx of colonoscopy H/O right breast biopsy Family History Father Lung cancer Mother Stroke Hypertension Social History Household Members: None Housing: House Do you presently have visiting nurse or other home services: No Alcohol intake: never Patient Tobacco Use Status: Former Tobacco user Tobacco use type: Cigarette e-Cigarette/Vaping Use: Never Used Second Hand Smoke Exposure: No Advance Directives Date on File: 11/17/23 service: No Current occupational status: employed Current occupational exposures/hazards: No Sexual orientation: Straight/Heterosexual Gender identity: Female Cognitive needs: No Hearing needs: No Vision needs: Yes Review of Systems Const Denies chills, Denies excessive sweating, Denies fever(s), Denies headache(s) and Denies night sweats Eyes Denies dry eyes, Denies irritation and Denies itchy eyes ENT Reports Normal hearing present and Denies headache(s) Card Denies chest pain, Denies chest pain at rest, Denies chest pain with activity, Denies claudication, Denies leg edema, Denies dyspnea, Denies dyspnea on exertion, Denies orthopnea and Denies paroxysmal nocturnal dyspnea Resp Denies chest congestion, Denies excessive phlegm production, Denies pain on inspiration, Denies pain with cough, Denies dyspnea, Denies dyspnea on exertion, Denies stridor and Denies wheezing Musc Denies myalgias Neuro Reports Normal hearing present and Denies headache(s) Endo Denies excessive sweating Kailash/Lymph Denies lymphadenopathy Aller/Immun Denies itchy eyes, Denies seasonal rhinorrhea and Denies wheezing Physical Exam Vital Signs: Last Vital Signs Pulse 60 12/23/24 14:54 BP 134/76 12/23/24 14:54 Pulse Ox 99 12/23/24 14:54 Oxygen Delivery Method Room Air 12/23/24 14:54 BMI result Body Mass Index 25.3 Const General: cooperative, healthy appearing, comfortable, no acute distress, well developed and alert Orientation/consciousness: patient oriented x3 Limitations: no limitations HEENT Head: Yes normal to inspection, Yes normocephalic and Yes atraumatic Ears: hearing grossly normal bilaterally and external ears normal Eyes General: appearance normal, both eyes and all related structures Eyelids: Yes eyelids normal Sclerae: sclerae normal EOM: EOMs intact bilaterally Neck Neck: Yes normal visual inspection and Yes no lymphadenopathy Lymphatic: no lymphadenopathy noted Chest Chest palpation & inspection: normal inspection of the chest Resp Effort & Inspection: normal respiratory effort, able to speak in complete sentences, no audible wheezes, no cough, no stridor, not tachypneic, no tripod positioning and no use of accessory muscles Auscultation: diminished lung sounds Cardio Jugular venous distension: no JVD Rate: regular rate Rhythm: regular rhythm Skin Other: warm, dry General skin exam: no rashes or lesions noted Neuro General: patient oriented x3 Cranial nerves: Yes Normal hearing present Cognition (Neuro): normal cognition Gait exam (Neuro): Normal gait present Extrem General: Yes normal to inspection, Yes capillary refill normal, Yes no clubbing, cyanosis or edema and Yes no pedal edema Psych Appearance: grossly normal and well kempt Speech and movement: Normal speech and movement present and Clear speech present Affect: normal affect Attitude: cooperative Thought process: Normal thought process present Thought content: Normal thought content present Insight: Good insight present (Psych) Judgement: Good judgement present (Psych) Results Reviewed Results Reviewed: [address] [address] [address] Scan Report Signed Patient: Jazmyn Narvaez MR#: [id number] : 1955 Acct:[id number] Age/Sex: 69 / F ADM Date: 11/12/24 Loc: HO.CT Attending Dr: Hoda Keith NP Ordering Physician: Hoda Keith NP Date of Service: 11/12/24 Procedure(s): CT chest wo IV con Accession Number(s): [id number] cc: Willow Hill MD; Hoda Keith NP~ Report Number: [id number]: Total DLP = 119.00 mGy-cm Reason for Exam: R05.3 - Chronic cough CLINICAL HISTORY: R05.3 - Chronic cough CT chest without contrast Comparison: CR - XR CHEST 2V - 09/05/24 19:49 EDT CR/ID/SR - XR CHEST 1V - 11/11/23 19:48 EDT CR/ID/SR - XR CHEST 1V - 12/29/22 18:17 EDT Findings: No mediastinal mass or lymphadenopathy. No cardiomegaly. Moderate calcified coronary artery disease. Normal size thoracic aorta. Mild to moderate calcified atherosclerotic disease. Trace biapical scarring. Calcified granuloma. Minimal amount of subsegmental atelectasis versus linear scarring at the lung bases. No pneumothorax or pleural effusion. No acute osseous or soft tissue abnormality. No acute pathology in the imaged portion of the upper abdomen. Impression: No acute findings. This document has been electronically signed by: Yarely Temple MD on 11/13/2024 16:39:29 Dictated By: Yarely Murphy MD Signed By: <Electronically signed by Yarely Murphy MD in OV> 11/13/24 1640 DD/ 1639 TD/TT: 11/13/24 1639 Coffee Break Attendant: Assessment & Plan Assessment & Plan (1) Asthma-COPD overlap syndrome: Code(s): J44.9 - Chronic obstructive pulmonary disease, unspecified Category: Medical (2) Personal history of tobacco use: Code(s): Z87.891 - Personal history of nicotine dependence Category: Social Hx Plan Reviewed PFT which revealed mild obstructive ventilatory defect with bronchodilator response present in small to medium airways only. Increased residual volume suggests air trapping, suggestive of asthma COPD overlap syndrome. We discussed initiating a daily inhaler however she was not interested at this time. She was agreeable to trial albuterol MDI PRN. Discussed inhaler technique and when to use albuterol. Reviewed chest CT which did not demonstrate any significant findings contributing to cough. Awaiting results from sleep study. All questions were answered and patient is in agreement of plan. Will follow up in 8-10 weeks or sooner if needed. Medications: New albuterol sulfate 90 mcg/actuation 2 puffs inhalation Q4-6H PRN 1 ea 0RF shortness of breath or wheezing Coding Level of Care Code Est Pt Level 4 (68561) Diagnoses Asthma-COPD overlap syndrome J44.9 Personal history of tobacco use Z87.891
[2024-12-23 14:54] VITALS: BP 134/76; PULSE 60; O2SAT 99; BMI 25.3
== END 2024-12-23 15:31 | disposition home or self-care (01) ==
LOC: HO.HPS 14:46
PROVIDERS: PCP Internal Medicine; Visit Provider Nurse Practitioner Family
DX: J44.9 Chronic obstructive pulmonary disease, unspecified (principal); Z87.891 Personal history of nicotine dependence
CPT/HCPCS: 99214

== ENCOUNTER → 2024-12-23 14:45 | Outpatient (BNVA) | payer MEDICARE, SELFPAY | PROVIDERS: PCP Internal Medicine; Visit Provider Nurse Practitioner Family | DX: R05.3 Chronic cough (principal); J44.9 Chronic obstructive pulmonary disease, unspecified; Z87.891 Personal history of nicotine dependence | CPT/HCPCS: 99212 ==

== ENCOUNTER → 2024-12-24 07:53 | Outpatient (REF) | payer MEDICARE, SELFPAY ==
--- NOTE | ~2024-12-24 | NM_ITS ---
EXERCISE MYOCARDIAL PERFUSION STUDY INDICATION: Chest pain, palpitations TECHNIQUE: The patient was brought in for an exercise perfusion study on 12/24/2024. Patient performed exercise as per Diego protocol and was injected 25 mCi of sestamibi once target heart rate was achieved. Images were obtained using the SPECT gamma camera interlaced with the gating device. Images were obtained in supine position. Resting perfusion study was performed on 12/25/2024. Patient was administered 25 mCi of sestamibi intravenously at rest. Images were then obtained in supine position. Total DLP 66 mGy-cm. Images were processed with the software and compared side to side in short axis, horizontal long axis and vertical long axis views. FINDINGS: Raw aquisition reviewed. The stress perfusion study showed no significant perfusion abnormality. Both uncorrected as well as CT attenuation corrected images were reviewed. The gated study shows normal LV systolic function with calculated LVEF of > 70%. LV cavity is normal in size. The gated study shows normal wall thickening and contraction of segments. Resting study shows no significant perfusion abnormality. Gating at rest reveals normal wall motion with ejection fraction at 67%. The findings are consistent with no clear reversible or fixed perfusion abnormality. NM/NM cardiolite stress test IMPRESSION: 1. Myocardial perfusion imaging study shows normal myocardial perfusion. 2. Gated LVEF is > 70% during stress and 67% during rest. 3. Transient ischemic dilatation not present. EKG component of the test reported separately. Electronically signed by: Doron Oquendo MD 12/26/2024 03:45 PM EDT
--- NOTE | 2024-12-24 07:55 | CA_ITS ---
Acquisition Time: 2024-12-24 08:06:19 Total Exercise Time: 00:09:10 Test Indications: CP,Palpitations Medications: BIOTIN HCTZ SIMVASTATIN ONDANSARTAN Protocol: HAWK Max HR: 134 BPM 87% of Pred: 153 BPM Max BP: 158/62 mmHG Max Work Load: 10.1 METS Exercise stress test with exercise 9 min 10 secs of Hawk Protocol held at Stage 3, achieving 85% MPHR, with reports of SOB, no chest pain, without any arrythmias, with normotenisve response to exercise. Without any EKG changes meeting criteria for ischemia. In recovery, breathing returned to baseline. Nuclear images pending. Test reviewed with Dr. Oquendo. Referred By: Willow Murphy Electronically Signed By: Aroldo Wells
== END ==
LOC: HO.CARD 07:53
PROVIDERS: PCP Internal Medicine; Visit Provider Internal Medicine
DX: R07.9 Chest pain, unspecified (principal)
CPT/HCPCS: 78452; 93017; A9500

== ENCOUNTER → 2024-12-24 07:55 | Outpatient (BNV) | payer MEDICARE, SELFPAY | PROVIDERS: PCP Internal Medicine | DX: R06.02 Shortness of breath (principal) | CPT/HCPCS: 93016; 93018 ==

== ENCOUNTER 2024-12-28 09:37 | Outpatient (REF) | payer MEDICARE, SELFPAY ==
--- OUTSIDE RECORDS SUMMARY | 2024-12-28 09:39 | XMS_ITS | Data Portability ---
Author Organization [place] - [facility], Allergy Address [address] [address] Care Team Providers Care Print Production Coordinator Name Role Phone DIEGO GARCIA Referring Provider ELELN CAPPS Primary Care Provider Assessment No assessment [...] Details Recorded Time Tinnitus of vascular origin 072647818 Active 2017 Pulsatile tinnitus, bilateral; Note: Date Diagnosed: 10/23/2017 4:16 PM (H93.A3) Not Available [facility] 4 03:19:33 Tension-t ype headache 997322673 Active 2018 Tension headache NOS; Note: Date Diagnosed: 12/31/2018 3:26 PM (G44.209) Not Available [facility] 4 03:19:33 Chronic sialadeni tis 191420242 Active 2020 Chronic sialoadeni tis; Note: Date Diagnosed: 08/11/2020 3:39 PM (K11.21) Not Available [facility] 4 03:19:33 Dysphonia 71965639 Active 2021 Hoarseness ; Note: Date Diagnosed: 11/02/2021 5:23 PM (R49.0) Not Available [facility] 4 03:19:34 Posterior rhinorrhe a 14632849 Active 2021 Postnasal drip; Note: Date Diagnosed: 12/23/2021 5:52 PM (R09.82) Not Available [facility] 4 03:19:33 Acute sialoaden itis 450040171 Active 2024 TRACEE NOLEN MD [address], [facility] [place], [address] , [facility] - [facility] 5 10:50:18 Sialolith iasis 58655835 Active 2024 TRACEE NOLEN MD [address], [place], [address] , [facility] - [facility] 5 10:50:24 Problem Notes None recorded. Procedures Surgical History Date Name Laterality Status Provider Name and Address Organization Details Recorded Time salivary stone removal completed TRACEE NOLEN MD [address] [facility] [place],[facility] [address], [place], [address], [facility] 03/15/2024 10:51:04 Imaging Results None recorded. [...] spray aerosol 2018 active Medicati on ID: [id number] D uration Value: 30 Brand Name: triamcin [...] mg tablet 2018 active Medicati on ID: [id number] D uration Value: 30 Brand Name: loratadi ne Send Method: E-Prescr ibed Sub s Allowed: subs OK Speci al Instruct ion: TAKE 1 TABLET BY MOUTH EVERY DAY Medi cationGe nericNam e: loratadi ne Not Available Not Available Not Available Flonase Allergy Relief 50 mcg/actua tion nasal spray,zia pension Mcgill 2 spray into both nostrils once a day 03/15 completed Medicati on ID: [id number] D uration Value: 30 Brand Name: Flonase Allergy Relief S end Method: E-Prescr ibed Sub s Allowed: subs OK Medic ationGen ericName : Flonase Allergy Relief Not Available Not Available Not Available Vitals Date Recorded Body height Body mass index (BMI) Body weight Provider Name and Address Organization Details Last Updated DateTime 03/15/2024 152.4 cm 28.5 kg/m2 47706.49 g Huber Stevenson [place] - [facility] 03/15/2024 10:28:53 Date Recorded Body height Body mass index (BMI) Body weight Provider Name and Address Organization Details Last Updated DateTime 07/03/2024 152.4 cm 28.5 kg/m2 88132.49 g Huber Stevenson [facility] 07/03/2024 15:44:41 Social History None recorded. Functional Status None recorded. Mental Status None recorded. Family History Nothing Reported. Medical History No medical history recorded. Gynecological HistoryNo gynecological history recorded. Obstetrics History GPAL:G 0 P 0 0 0 0 Past Encounters Encounter ID Performer Location Encounter Start Date Encounter Closed Date Diagnosis/Indication Diagnosis SNOMED-CT Code Diagnosis ICD10 Code Diagnosis IMO Codes Diagnosis Note [id number] TRACEE NOLEN MD [facility] on [address] [place] [id number] 03/15/2024 10:01:34 03/15/2024 10:50:26 Acute sialoadenitis 759761370 K11.21 resolved, no purulence after stone removal Sialolithiasis 62754691 K11.5 informed consent for stone removal obtained, stone removed, she tolerated well, i encouraged hydration and massage, f/u 4 months for a recheck. no need for additional abx. [id number] TRACEE NOLEN MD [facility] on [address] [place] [phone] 07/03/2024 15:42:30 07/03/2024 16:10:08 Sialolithiasis 62343357 K11.5 Resolved. Good salivary drainage on milking [...] Dai Member ID Guarantor Name 03/14/2024 2 [facility] Jazmyn Narvaez [id number] Jazmyn Narvaez 07/03/2024 1 MEDICARE B-[place]: [employer] Jazmyn Narvaez [id number] 2 Jazmyn Narvaez 07/03/[address] [facility] ([facility] [id number] Jazmyn Narvaez [id number] Jazmyn Narvaez Notes Date Note Type [...] swelling after eating. TRACEE NOLEN MD [address] [facility],[address], [address], [place] - [facility] 03/15/2024 10:52:48 07/03/2024 text/html ROS as noted in the HPI She has a history of right submandibular transoral salivary stone removal in the office at the last visit. She denies any pain or swelling when she eats. She reports she had some dental work in [place] and reports some roughness on the right side of her floor of mouth. TRACEE NOLEN MD [address] [facility],[place] [address], [place], [address], [place] - [facility] 07/03/2024 16:10:20 OBGyn Episode No OBEpisode recorded.
[2024-12-28 11:11] LABS: Alanine Aminotransferase 20 U/L (0-31); Albumin Level 4.3 g/dL (3.5-5.0); Alkaline Phosphatase 61 U/L (39-117); Anion Gap 12 (12-20); Aspartate Amino Transferase 25 U/L (5-31); Blood Urea Nitrogen 21 mg/dL (9-16); Calcium 9.7 mg/dL (8.4-10.2); Carbon Dioxide 30 mmol/L (22-29); Chloride 104 mmol/L (96-108); Cholesterol 187 mg/dL (<200); Estimated Glomerular Filt Rate 55; HDL Cholesterol 56 mg/dL (>40); Potassium 3.9 mmol/L (3.3-5.1); Sodium 142 mmol/L (135-145); Total Protein 7.1 g/dL (6.5-8.0); Triglycerides 89 mg/dL (<150)
== END 2024-12-28 09:38 | disposition home or self-care (01) ==
LOC: HO.LAB 09:37
PROVIDERS: Absent Provider Internal Medicine; PCP Internal Medicine; Visit Provider Internal Medicine Hypertension Specialist
DX: I10 Essential (primary) hypertension (principal); E78.00 Pure hypercholesterolemia, unspecified; E78.5 Hyperlipidemia, unspecified; E55.9 Vitamin D deficiency, unspecified
CPT/HCPCS: 36415; 80048; 80053; 80061; 82088; 82306; 84244

== ENCOUNTER 2025-01-03 10:58 | Day surgery (SDC) | payer MEDICARE, SELFPAY ==
--- OUTSIDE RECORDS SUMMARY | 2024-12-23 06:53 | XMS_ITS | Data Portability ---
Author Organization [place] - [facility], Allergy Address [address] [address] Care Team Providers Care Manager Golf Name Role Phone DIEGO GARCIA Referring Provider [...] Details Recorded Time Tinnitus of vascular origin 034741350 Active 2017 Pulsatile tinnitus, bilateral; Note: Date Diagnosed: 10/23/2017 4:16 PM (H93.A3) Not Available [facility] 4 03:19:33 Tension-t ype headache 953785489 Active 2018 Tension headache NOS; Note: Date Diagnosed: 12/31/2018 3:26 PM (G44.209) Not Available [facility] 4 03:19:33 Chronic sialadeni tis 906534632 Active 2020 Chronic sialoadeni tis; Note: Date Diagnosed: 08/11/2020 3:39 PM (K11.21) [facility] 4 03:19:33 Dysphonia 95789529 Active 2021 Hoarseness ; Note: Date Diagnosed: 11/02/2021 5:23 PM (R49.0) Not Available [facility] 4 03:19:34 Posterior rhinorrhe a 22623860 Active 2021 Postnasal drip; Note: Date Diagnosed: 12/23/2021 5:52 PM (R09.82) Not Available [facility] 4 03:19:33 Acute sialoaden itis 144264253 Active 2024 TRACEE NOLEN MD [address], [facility] [place], [address] , [facility] - [facility] 5 10:50:18 Sialolith iasis 79915107 Active 2024 TRACEE NOLEN MD [address], [place], [address] , [facility] - [facility] 5 10:50:24 Problem Notes None recorded. Procedures Surgical History Date Name Laterality Status Provider Name and Address Organization Details Recorded Time salivary stone removal completed TRACEE NOLEN MD 100 [facility] [place],[facility] 100, [place], [address], [facility] 03/15/2024 10:51:04 Imaging Results None recorded. [...] spray aerosol 2018 active Medicati on ID: [id number] D uration Value: 30 Brand Name: triamcin [...] mg tablet 2018 active Medicati on ID: [id number] D uration Value: 30 Brand Name: loratadi ne Send Method: E-Prescr ibed Sub s Allowed: subs OK Speci al Instruct ion: TAKE 1 TABLET BY MOUTH EVERY DAY Medi cationGe nericNam e: loratadi ne Not Available Not Available Not Available Flonase Allergy Relief 50 mcg/actua tion nasal spray,zia pension [place] 2 spray into both nostrils once a day 03/15 completed Medicati on ID: [id number] D uration Value: 30 Brand Name: Flonase Allergy Relief S end Method: E-Prescr ibed Sub s Allowed: subs OK Medic ationGen ericName : Flonase Allergy Relief Not Available Not Available Not Available Vitals Date Recorded Body height Body mass index (BMI) Body weight Provider Name and Address Organization Details Last Updated DateTime 03/15/2024 152.4 cm 28.5 kg/m2 26968.49 g Huber Stevenson [place] - [facility] 03/15/2024 10:28:53 Date Recorded Body height Body mass index (BMI) Body weight Provider Name and Address Organization Details Last Updated DateTime 07/03/2024 152.4 cm 28.5 kg/m2 83770.49 g Huber Stevenson [facility] 07/03/2024 15:44:41 Social History None recorded. Functional Status None recorded. Mental Status None recorded. Family History Nothing Reported. Medical History No medical history recorded. Gynecological HistoryNo gynecological history recorded. Obstetrics History GPAL:G 0 P 0 0 0 0 Past Encounters Encounter ID Performer Location Encounter Start Date Encounter Closed Date Diagnosis/Indication Diagnosis SNOMED-CT Code Diagnosis ICD10 Code Diagnosis IMO Codes Diagnosis Note [id number] TRACEE NOLEN MD [facility] on [address] [place] [address] 03/15/2024 10:01:34 03/15/2024 10:50:26 Acute sialoadenitis 251281869 K11.21 resolved, no purulence after stone removal Sialolithiasis 74301143 K11.5 informed consent for stone removal obtained, stone removed, she tolerated well, i encouraged hydration and massage, f/u 4 months for a recheck. no need for additional abx. [id number] TRACEE NOLEN MD [facility] on [address] [place] [phone] 2 07/03/2024 15:42:30 07/03/2024 16:10:08 Sialolithiasis 91487789 K11.5 Resolved. Good salivary drainage on milking [...] Dai Member ID Guarantor Name 03/14/2024 2 [facility] Jazmyn Narvaez [id number] Jazmyn Narvaez 07/03/2024 1 [place] [employer] Jazmyn Narvaez [id number] 2 Jazmyn Narvaez 07/03/2024 2 [facility] [facility] [id number] Jazmyn Narvaez [id number] 51 Jazmyn Narvaez Notes Date Note Type [...] swelling after eating. TRACEE NOLEN MD 100 [facility],[address], [address], [place] - [facility] 03/15/2024 10:52:48 07/03/2024 text/html ROS as noted in the HPI She has a history of right submandibular transoral salivary stone removal in the office at the last visit. She denies any pain or swelling when she eats. She reports she had some dental work in [place] and reports some roughness on the right side of her floor of mouth. TRACEE NOLEN MD 100 [facility],[place] [address], [place], [address], [place] - [facility] 07/03/2024 16:10:20 OBGyn Episode No OBEpisode recorded.
[2025-01-01 08:04] VITALS: BMI 24.5
--- NOTE | 2025-01-01 08:19 | P.CONAN_ITS ---
Documented by User: Milena Miller NP 01/01/25 08:24 HPI - Anesthesia Eval Consult details Narrative: 69yo F for LEEP,poss loop electric excision,poss loop electrical,cone and post endocervical curettage 10/2024 cardiac w/u for htn and palps - EKG, ECHO, Holter, and Stress WNL 11/2024 pulmo eval for chronic cough - PFTs done - Asthma-COPD overlap syndrome - started on albuterol prn PMFSH Active Problems Active Problems: All Active Problems Asthma-COPD overlap syndrome (Acute) LGSIL on Pap smear of cervix (Acute) White coat syndrome with diagnosis of hypertension (Acute) Encounter for well woman exam with routine gynecological exam (Acute) BONIFACIO I (cervical intraepithelial neoplasia I) (Acute) Loud snoring (Acute) Daytime somnolence (Acute) Personal history of tobacco use (Acute) Palpitations (Acute) Murmur (Acute) Dyspnea (Acute) Chest pain (Acute) Chronic coughing (Acute) Tongue lesion (Acute) Pyelonephritis (Acute) At high risk for tick borne illness (Acute) UTI (urinary tract infection) (Acute) HPV in female (Acute) Pure hypercholesterolemia (Acute) Benign essential hypertension (Acute) GERD (gastroesophageal reflux disease) (Acute) Hypovitaminosis D (Acute) Abdominal pain (Acute) Leukopenia (Chronic) Tubular adenoma of colon (Acute) ASCUS with positive high risk HPV cervical (Acute) Pre-op examination (Acute) Colon cancer screening (Acute) Positive colorectal cancer screening using Cologuard test (Acute) Physical exam (Acute) Epigastric pain (Acute) Pelvic pain in female (Acute) Impaired glucose tolerance (Acute) Right elbow pain (Acute) Vitamin D insufficiency (Acute) Hypertension (Acute) Dyslipidemia (Acute) Past Medical History Medical History (Updated 12/30/24 @ 13:00 by Hoda Keith NP) BONIFACIO I (cervical intraepithelial neoplasia I) Encounter for well woman exam with routine gynecological exam Pyelonephritis Pelvic pain in female Impaired glucose tolerance Right elbow pain Vitamin D insufficiency Dyslipidemia Vitamin D deficiency GERD (gastroesophageal reflux disease) Hypercholesterolemia Hypertension Family History Family History Father Lung cancer Mother Stroke Hypertension Family history of problems with anesthesia: No Surgical History Surgical History (Updated 01/03/25 @ 12:00 by Giana Smith RN) History of appendectomy Hx of colonoscopy H/O right breast biopsy History of Problems with Anesthesia: No Social History Social History Household Members: None Housing: House Do you presently have visiting nurse or other home services: No Alcohol intake: never Patient Tobacco Use Status: Former Tobacco user Tobacco use type: Cigarette e-Cigarette/Vaping Use: Never Used Second Hand Smoke Exposure: No Use of substances other than those prescribed or required for medical reasons: No Are you DNR?: No Advance Directives: No Advance Directives Information Provided: Yes Advance Directives Date on File: 11/17/23 Patient : No : No service: No Current occupational status: employed Current occupational exposures/hazards: No Sexual orientation: Straight/Heterosexual Gender identity: Female Cognitive needs: No Hearing needs: No Vision needs: Yes Meds Allergies Allergy/AdvReac Type Severity Reaction Status Date / Time bee pollen (BEE STINGS) Allergy Intermediate Swelling Verified 12/23/24 14:57 Home Medications ?Medication ?Instructions ?Recorded ?Confirmed ?Last Taken ?Type biotin 1 mg tablet 1 mg PO DAILY 11/12/2301/0111/10/23 History Exam Height,Weight and Vital Signs: Height 5 ft 5 in Weight 66.678 kg Pertinent Lab Results Pertinent Lab Results: Laboratory Tests 09/05/24 12/28/24 20:23 09:49 WBC 6.6 Hgb 12.6 Hct 35.5 L Plt Count 201 Sodium 142 Potassium 3.9 Chloride 104 Carbon Dioxide 30 H BUN 21 H Creatinine 1.01 Narrative Narrative: EKG 08/2024 Vent. Rate : 71 BPM Atrial Rate : 71 BPM P-R Int : 166 ms QRS Dur : 100 ms QT Int : 440 ms P-R-T Axes : 65 24 40 degrees QTcB Int : 478 ms Normal sinus rhythm Normal ECG When compared with ECG of 31-May-2023 21:50, No significant change was found ECHO 10/2024 Conclusions: - 1. Normal LV ejection fraction of 60 65% with impaired relaxation filling pattern 2. Normal cardiac valvular Dopplers 3. Normal RV systolic pressure 4. No gross pericardial effusion Holter 10/2024 * Total monitoring time one day. * Underlying rhythm is sinus with an average rate of 68/Min. * Rare supraventricular ectopy. * No significant pauses or high-grade AV blocks. * No patient markers or diary events. HI cardiolite stress test 11/2024 IMPRESSION: 1. Myocardial perfusion imaging study shows normal myocardial perfusion. 2. Gated LVEF is > 70% during stress and 67% during rest. 3. Transient ischemic dilatation not present. Assessment and Plan Assessment Anesthesia Assessment: Chart Reviewed Final Anesthetic Review Family History of Problems with Anesthesia: No History of Problems with Anesthesia: No Documented by User: Elda Velasquez MD 01/03/25 12:06 COUNTS INCLUDE 234 BEDS AT THE [facility] Past Medical History Medical History (Updated 12/30/24 @ 13:00 by Hoda Keith NP) BONIFACIO I (cervical intraepithelial neoplasia I) Encounter for well woman exam with routine gynecological exam Pyelonephritis Pelvic pain in female Impaired glucose tolerance Right elbow pain Vitamin D insufficiency Dyslipidemia Vitamin D deficiency GERD (gastroesophageal reflux disease) Hypercholesterolemia Hypertension Family History Family History Father Lung cancer Mother Stroke Hypertension Surgical History Surgical History (Updated 01/03/25 @ 12:00 by Giana Smith RN) History of appendectomy Hx of colonoscopy H/O right breast biopsy Social History Social History Household Members: None Housing: House Do you presently have visiting nurse or other home services: No Alcohol intake: never Patient Tobacco Use Status: Former Tobacco user Tobacco use type: Cigarette e-Cigarette/Vaping Use: Never Used Second Hand Smoke Exposure: No Use of substances other than those prescribed or required for medical reasons: No Are you DNR?: No Advance Directives: No Advance Directives Information Provided: Yes Advance Directives Date on File: 11/17/23 Patient : No : No service: No Current occupational status: employed Current occupational exposures/hazards: No Sexual orientation: Straight/Heterosexual Gender identity: Female Cognitive needs: No Hearing needs: No Vision needs: Yes Meds Allergies Allergy/AdvReac Type Severity Reaction Status Date / Time bee pollen (BEE STINGS) Allergy Intermediate Swelling Verified 12/23/24 14:57 Home Medications ?Medication ?Instructions ?Recorded ?Confirmed ?Last Taken ?Type biotin 1 mg tablet 1 mg PO DAILY 11/12/2301/0111/10/23 History Exam Airway Mallampati Class: III (caps all top, imolant lateral) TM Dist: >3cm Neck ROM: Full Heart: rrr Lungs: cta Assessment and Plan Assessment Anesthesia Assessment: Anesthesia Plan Discussed Final Anesthetic Review NPO: Yes ASA Class: III Final Preanesthetic Review: No Changes in Pt Med Stat, Meds/Allgs Chart Reviewed and Consent Obtained/Reviewed Patient Risk: Low Procedure Risk: Low Anesthetic Plan Anesthetic Plan: GA Disposition: Standard PACU
[2025-01-03 12:01] VITALS: BMI 24.7
[2025-01-03 12:03] VITALS: BP 160/64; PULSE 67; RESP 16; TEMP 37.1; O2SAT 99
[2025-01-03] MEDS: Lactated Ringers 1,000 ML 100 ML IVCONT (12:20)
--- NOTE | 2025-01-03 12:20 | MHC.SHP ---
Pre-Procedural Eval Section A - 24 Hr Update-Section A only Date of Service: 01/03/25 The patient is an INPATIENT: No Changes since office visit: No Cold of Flu in the past 2 weeks, No New Medical Problems, No Changes in Medication and No Patient answered all questions The patient has been examined within 24 hours of the surgical procedure. The History & Physical has been completed within 30 days and I have reviewed it.: Yes Section B - Complete if H&P > 30 days Chief Complaint: Low grade squamous intraepithelial lesion on cytol Allergies: Allergies Allergy/AdvReac Type Severity Reaction Status Date / Time bee pollen (BEE STINGS) Allergy Intermediate Swelling Verified 12/23/24 14:57 Plan Diagnosis/Plan: Unchanged I have reviewed the history and physical and performed a pertinent physical examination on my patient. No changes have occurred unless specified. Time Spent With Patient Time: Total time managing care of this patient today ____ minutes.
--- NOTE | 2025-01-03 13:29 | PM.OP ---
Brief Operative Note Date of Service: 01/03/25 Pre-op diagnosis: Discrepancy between cytology ( LGSIL can not exclude high-grade NIDIA) and negative pathology Post-op diagnosis: same Procedure: LEEP CONE with post CONE ECC Surgeon: Klever Ybarra MD Anesthesia: GLMA and other (Paracervical block) Was an Cement Gun Operator used for this Procedure?: No Estimated blood loss (mL): 0 Pathology: other (Anterior and posterior cervical lip, endocervix, Post cone ECC) Condition: stable Disposition: other (Home)
--- NOTE | 2025-01-03 13:30 | W.PM.OPN ---
Operative Note Operative Note Date of Service: 01/03/25 Narrative: Pre op diagnosis: Discrepancy between cytology showing L NIDIA can not exclude high-grade NIDIA with negative pathology Operation: Colposcopy, Loop electrical excision procedure cone, endocervical excision, post cone ECC Postop diagnosis: the same Quantitative blood loss: 50 cc Surgeon: Klever Ybarra MD, FACOG Buyers' Agent: None Pathology: Anterior and posterior cervical lip, endo cervical excision, endo cervical curettage Complications: none Anesthesia: GLMA and Para cervical block Procedure: The patient was put in a dorsal lithotomy position, scrubbed and draped in the usual sterile fashion. A speculum was inserted inside the patient's vagina. The cervix is assessed using the colposcope with acetic acid , the lesions were seen, and at least 1 cm of the squamocolumnar junction was observed. 20 x 5 mm size loop was selected based upon the diameter of the lesion. Lugol solution was used to outline the lesions and area of the transformation zone order to be removed 10 cc of xylocaine with epinephrine were injected submucosally into the surface of the cervix (ectocervix) at the 3, 6, 9, and 12 o'clock positions. The electrosurgical generator is set at 40 cleary on blend 1. The loop is carefully passed simultaneously around and under the transformation zone, in order to ensure excising it making sure the lesion is at least 5 mm far from the specimen margins . Intrauterine cervical lip excision done followed by, endo cervical excision .An endo cervical curettage is performed following completion of excision, and hemostasis is obtained with a Ball electrode or regular tip cautery. At the end, Monsel's solution was applied to the cone bed. The patient tolerated the procedure well and, all instruments were taken out of the patient vaginal cavity, and the patient was transferred to the PACU in stable condition.
[2025-01-03 13:32] VITALS: BP 112/48; PULSE 74; RESP 16; TEMP 36.5; O2SAT 99
[2025-01-03 13:37] VITALS: BP 111/52; PULSE 75; RESP 17; O2SAT 97
[2025-01-03 13:42] VITALS: BP 129/55; PULSE 79; RESP 15; O2SAT 98
[2025-01-03 13:47] VITALS: BP 134/59; PULSE 75; RESP 16; O2SAT 98
[2025-01-03 13:58] VITALS: BP 132/55; PULSE 71; RESP 15; TEMP 36.4; O2SAT 99
== END 2025-01-03 14:18 | disposition home or self-care (01) ==
PROVIDERS: PCP Internal Medicine; Visit Provider Obstetrics & Gynecology
PROC: 0UBC7ZZ Excision of Cervix, Via Natural or Artificial Opening (ICD-10-PCS; CPT 57522; principal; 2025-01-03 13:30)
DX: R87.612 Low grade squamous intraepithelial lesion on cytologic smear of cervix (LGSIL) (principal); R10.20 Pelvic and perineal pain unspecified side; R73.02 Impaired glucose tolerance (oral); I10 Essential (primary) hypertension; E55.9 Vitamin D deficiency, unspecified; E78.00 Pure hypercholesterolemia, unspecified; Z79.899 Other long term (current) drug therapy; Z98.890 Other specified postprocedural states; Z87.891 Personal history of nicotine dependence
CPT/HCPCS: 57461; 88305; 88307; 88341; 88342; J1100; J2003; J2004; J2250; J2405; J2704; J3010

== ENCOUNTER → 2025-01-03 10:58 | Outpatient (BNV) | payer MEDICARE, SELFPAY | PROVIDERS: PCP Internal Medicine; Visit Provider Obstetrics & Gynecology | DX: R87.612 Low grade squamous intraepithelial lesion on cytologic smear of cervix (LGSIL) (principal) | CPT/HCPCS: 57461 ==

== ENCOUNTER 2025-01-13 16:48 | Outpatient (AMB) | payer MEDICARE, SELFPAY ==
[2025-01-13 17:01] VITALS: BP 128/70; PULSE 69; O2SAT 98; BMI 25.6
--- NOTE | 2025-01-13 17:01 | A.OFFPC_ITS ---
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 Accompanied by: Self / Same As Patient Allergies bee pollen (BEE STINGS) Allergy (Intermediate, Verified 01/13/25 17:12) Swelling Medication List - Last Reconciled 01/13/25 by Willow Murphy MD albuterol sulfate 90 mcg/actuation 2 puffs inhalation Q4-6H PRN biotin 1 mg PO DAILY cholecalciferol (vitamin D3) 25 mcg PO DAILY 90 days hydrochlorothiazide 25 mg PO DAILY 90 days simvastatin 10 mg PO BEDTIME 90 days Tobacco use date assessed: 03/04/24 Fall risk assessment: No Falls in past year Last assessed Fall Risk: 01/13/25 Dental Screening Dental Screen Date: 03/04/24 HPI HPI Comments History of Present Illness Details The patient is a 69-year-old female presenting for follow-up of chronic conditions and review of recent test results. Her medical history includes prediabetes, with a stable fasting blood sugar of 115 for a few years. She has a known allergy to bees and is prescribed an inhaler, vitamin D, hydrochlorothiazide 25 mg, and simvastatin 10 mg. Her cholesterol is well-managed with simvastatin and a strict, low-carbohydrate diet. She has chronic kidney disease with a GFR of 55 and is followed by a coal or ore controller. A manager social services reportedly observed scarring on both kidneys. A sleep apnea study performed in October revealed very mild obstructive sleep apnea with normal oxygen saturation, which was deemed not to require treatment. [facility] Medical History BONIFACIO I (cervical intraepithelial neoplasia I) Encounter for well woman exam with routine gynecological exam Pyelonephritis Pelvic pain in female Impaired glucose tolerance Right elbow pain Vitamin D insufficiency Dyslipidemia Vitamin D deficiency GERD (gastroesophageal reflux disease) Hypercholesterolemia Hypertension Surgical History History of appendectomy Hx of colonoscopy H/O right breast biopsy Family History Father Lung cancer Mother Stroke Hypertension Social History Household Members: None Housing: House Do you presently have visiting nurse or other home services: No Alcohol intake: never Patient Tobacco Use Status: Former Tobacco user Tobacco use type: Cigarette e-Cigarette/Vaping Use: Never Used Second Hand Smoke Exposure: No Advance Directives Date on File: 11/17/23 service: No Current occupational status: employed Current occupational exposures/hazards: No Sexual orientation: Straight/Heterosexual Gender identity: Female Cognitive needs: No Hearing needs: No Vision needs: Yes Questionnaire Thrive Questionnaire Date Thrive assessed: 07/02/24 I am a: Patient What is your living situation today?: I have a steady place to live Within the past 12 months, did the food you bought not last and you didn't have the money to get more?: Never true Within the past 12 months, did you worry whether your food would run out before you got money to buy more?: Never true Do you have trouble paying for medicines?: No Do you have trouble getting transportation to medical appointments?: No Do you have trouble paying your heating and electricity bill?: No Do you have trouble taking care of your child, family member or friend?: No Do you have trouble with day-to-day activities such as bathing, preparing meals, shopping, managing finances, etc.?: No Are you currently unemployed and looking for a job?: No Are you interested in more education?: No Please select the resources that you would like help with: None Currently or been in a relationship where the following occur: No concerns reported THRIVE Score: 0 SALONI-7 AMB Questionnaire SALONI-7 Date SALONI - 7 assessed: 07/02/24 Source: Developed by Drs. Alex Godinez, Mariah Chen, Jeff Junior and colleagues, with an educational cristobal from [employer]. Review of Systems Const All systems reviewed & are unremarkable except as noted in HPI and below Card Denies chest pain at rest, Denies chest pain with activity, Denies edema, Denies irregular heart rhythm, Denies claudication, Denies dyspnea, Denies dyspnea on exertion, Denies orthopnea, Denies paroxysmal nocturnal dyspnea and Denies slow heart rate Resp Denies cough, Denies dyspnea and Denies dyspnea on exertion GI Denies abdominal pain, Denies change in bowel habits, Denies excessive flatus, Denies nausea and Denies vomiting Physical exam (Primary Care) Vital Signs: Last Vital Signs Pulse 69 01/13/25 17:01 BP 128/70 01/13/25 17:01 Pulse Ox 98 01/13/25 17:01 Oxygen Delivery Method Room Air 01/13/25 17:01 BMI result Body Mass Index 25.6 Tobacco/Smoking Status: Tobacco use Status Tobacco use date assessed 03/04/24 01/13/25 17:05 Patient Tobacco Use Status Former Tobacco user 01/13/25 17:05 Tobacco use type Cigarette 01/13/25 17:05 e-Cigarette/Vaping Use Never Used 01/13/25 17:05 Thrive Assessment: Date of Thrive Assessment Date Thrive assessed 07/02/24 01/13/25 17:05 Currently or been in a relationship where the following occur: No concerns reported Resp Effort & Inspection: normal respiratory effort Auscultation: clear to auscultation bilaterally Cardio Jugular venous distension: no JVD Rate: regular rate Rhythm: regular rhythm Heart sounds: S1 normal heart sound present and S2 normal heart sound present Extrem General: Yes full ROM Coding Level of Care Code Est Pt Level 4 (23679) Complex EM visit Add On G2211 Diagnoses Benign essential hypertension I10 Dyslipidemia E78.5 Pure hypercholesterolemia E78.00 Impaired glucose tolerance R73.02 Time Spent (min) 21 Assessment & Plan Assessment & Plan (1) Benign essential hypertension: Code(s): I10 - Essential (primary) hypertension Category: Medical (2) Dyslipidemia: Code(s): E78.5 - Hyperlipidemia, unspecified Category: Medical (3) Pure hypercholesterolemia: Code(s): E78.00 - Pure hypercholesterolemia, unspecified Category: Medical (4) Impaired glucose tolerance: Code(s): R73.02 - Impaired glucose tolerance (oral) Category: Medical Plan Plan 1. Mild Obstructive Sleep Apnea The results of the recent sleep study were reviewed, which showed very mild or borderline obstructive sleep apnea. Given the mildness of the findings and normal oxygen saturation, no treatment is required at this time. The patient was reassured. 2. Prediabetes The patient's blood sugar is elevated at 115, consistent with prediabetes, but it has remained stable for several years. Will continue to monitor and plan to recheck blood work in six months. 3. Hyperlipidemia The patient's cholesterol is excellent and well-controlled with simvastatin 10 mg and diet adherence. Will continue current management and recheck cholesterol with blood work in six months. 4. Chronic Kidney Disease The patient's GFR is 55, and she is being followed by a coal or ore controller for this condition. She will continue follow-up with her kidney specialist as planned. 5. Essential Hypertension Her blood pressure is well-controlled and at goal on hydrochlorothiazide 25 mg. Continue current medication. Orders: Orders Lipid Panel 6 Months E78.5 - Hyperlipidemia, unspecified Comprehensive [place]. Panel Fast 6 Months I10 - Essential (primary) hypertension
== END 2025-01-13 17:24 | disposition home or self-care (01) ==
LOC: HO.HMCH 16:48
PROVIDERS: PCP Internal Medicine; Visit Provider Internal Medicine
DX: I10 Essential (primary) hypertension (principal); E78.5 Hyperlipidemia, unspecified; E78.00 Pure hypercholesterolemia, unspecified; R73.02 Impaired glucose tolerance (oral)

== ENCOUNTER → 2025-01-13 16:48 | Outpatient (BNVA) | payer MEDICARE, SELFPAY | PROVIDERS: PCP Internal Medicine; Visit Provider Internal Medicine | DX: I10 Essential (primary) hypertension (principal); E78.5 Hyperlipidemia, unspecified; E78.00 Pure hypercholesterolemia, unspecified; R73.02 Impaired glucose tolerance (oral) | CPT/HCPCS: 99212 ==

== ENCOUNTER 2025-01-14 08:51 | Outpatient (AMB) | payer MEDICARE, SELFPAY ==
[2025-01-14 08:57] VITALS: BP 120/70; PULSE 69; BMI 25.7
--- NOTE | 2025-01-14 08:57 | A.OFFVIS_ITS ---
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 She is a pleasant 69-year-old female who over the last year has been having increasing symptoms of palpitation especially at nighttime she had noticed palpitation skipped heartbeats along with elevated blood pressure. She says a blood pressures to go up to 200. Since then she has been started on hydrochlorothiazide and has been increased to current dose and a blood pressure is much better control and she does not have these nocturnal symptoms anymore. However she continues to have symptoms of occasional palpitations that are not very bothersome to her. No prolonged fast heart rate or irregular heartbeat. She denies any lightheadedness, syncope. She does have exertional shortness of breath which is related to asthma. However because of her hypertension hyperlipidemia she underwent a stress test with myocardial perfusion imaging which was within normal limits at high workload. She had also had an echocardiogram which overall showed normal structure of the heart consistent with a rage and hypertension. Patient had a Holter monitor which showed rare PACs without any prolonged arrhythmias but did not have any significant symptoms during that time. She had a noncardiac chest CTA for her shortness of breath which showed [id number]-pi-[id number] coronary calcium. However he had no fissures score is noted. Patient denies any exertional chest pain. However she continues to remain worried about clogged arteries in his heart. Patient says that she has since then and since the test results has been come more relax and her symptoms of palpitations have improved. [facility] Medical History BONIFACIO I (cervical intraepithelial neoplasia I) Encounter for well woman exam with routine gynecological exam Pyelonephritis Pelvic pain in female Impaired glucose tolerance Right elbow pain Vitamin D insufficiency Dyslipidemia Vitamin D deficiency GERD (gastroesophageal reflux disease) Hypercholesterolemia Hypertension Surgical History History of appendectomy Hx of colonoscopy H/O right breast biopsy Family History Father Lung cancer Mother Stroke Hypertension Social History Household Members: None Housing: House Do you presently have visiting nurse or other home services: No Alcohol intake: never Patient Tobacco Use Status: Former Tobacco user Tobacco use type: Cigarette e-Cigarette/Vaping Use: Never Used Second Hand Smoke Exposure: No Advance Directives Date on File: 11/17/23 service: No Current occupational status: employed Current occupational exposures/hazards: No Sexual orientation: Straight/Heterosexual Gender identity: Female Cognitive needs: No Hearing needs: No Vision needs: Yes Review of Systems Const Denies chills, Denies daytime sleepiness, Denies fatigue, Denies fever(s), Denies frequent falls, Denies poor appetite, Denies snoring, Denies stops breathing during sleep, Denies weakness, Denies weight gain and Denies weight loss Eyes Denies loss of vision ENT Denies dizziness and Denies hearing loss Card Denies chest pain, Denies claudication, Denies leg edema, Denies lightheadedness, Reports palpitations, Denies dyspnea, Denies dyspnea on exertion and Denies orthopnea Resp Denies cough, Denies excessive phlegm production, Denies dyspnea, Denies dyspnea on exertion, Denies snoring and Denies wheezing GI Denies abdominal pain, Denies hematochezia, Denies change in bowel habits, Denies nausea and Denies vomiting Denies urinary frequency and Denies dysuria Musc Denies arthralgias, Denies muscle weakness and Denies numbness Skin/Breast Denies nail changes and Denies rash Neuro Denies Abnormal speech present, Denies dizziness, Denies frequent falls, Denies loss of vision, Denies memory loss, Denies numbness and Denies weakness Psych Denies depression and Denies memory loss Endo Denies fatigue and Reports palpitations Kailash/Lymph Reports easy bruising and Reports other (anemia) Aller/Immun Denies wheezing Physical Exam Vital Signs: Last Vital Signs Pulse 69 01/14/25 08:57 BP 120/70 01/14/25 08:57 BMI result Body Mass Index 25.7 Const General: cooperative, comfortable, no acute distress, alert, awake and Physically active Nutritional Appearance: average body habitus Orientation/consciousness: patient oriented x3 Limitations: no limitations HEENT Head: Yes normocephalic and Yes atraumatic Neck Neck: Yes trachea midline, Yes supple and Yes no JVD Carotids: no bruits Resp Effort & Inspection: normal respiratory effort Auscultation: clear to auscultation bilaterally Cardio Jugular venous distension: no JVD Rate: regular rate Rhythm: regular rhythm Heart sounds: S1 normal heart sound present, S2 normal heart sound present, no click, no gallops, no murmurs and no rubs GI Auscultation: normal bowel sounds Skin General skin exam: no rashes or lesions noted Neuro General: patient oriented x3 and no focal motor deficits Speech: No Abnormal speech present Extrem General: Yes no clubbing, cyanosis or edema Psych Appearance: grossly normal Office Procedures EKG Details: EKGs shows normal sinus rhythm with normal EKGs [id number], Complete Assessment & Plan Assessment & Plan (1) Palpitations: Code(s): R00.2 - Palpitations Category: Medical Plan: Symptoms of palpitation which have improved since controlling, blood pressure as well as improving her stress levels. We discussed that these are mostly isolated extra systoles and in setting of normal structure of the heart carry benign prognosis. We can do further workup with a 30 day event monitor although she says that she would rather continue to pursue current medical therapy. I would avoid any pharmacotherapy for these palpitations. Stress mitigation strategies were discussed. Avoidance of stimulants was discussed. She understands and agrees. (2) Hypertension: Comment: no meds-states only high in md offices Code(s): I10 - Essential (primary) hypertension Category: Medical Plan: Hypertension which seems to be better controlled now on hydrochlorothiazide therapy and she is happy in his symptoms have improved especially spikes in his blood pressure. Continue to monitor blood pressure at home and target goal blood pressure less than 130/84. Noted coronary calcium on her noncardiac CT. I would will obtain official cardiac coronary calcium score that would assign prognosis. If her calcium score was greater than 100 she would benefit from aspirin therapy. If it is greater than 400 I would pursue further anatomic evaluation for coronary artery disease. This was discussed with her. Meanwhile I would continue current blood pressure medications. Her LDL is not well optimized for her elevated coronary calcium score as this is usually suggest presence of underlying atherosclerosis in I would uptitrate to high-intensity statin therapy with target goal LDL less than 70 mg/dL. However her myocardial perfusion imaging at current workload is assuring of nonobstructive coronary artery disease. Will follow up if need be. Thank you for allowing me to partake in her care Orders: Orders CT Coronary Calcium Score 1 Week E78.5 - Hyperlipidemia, unspecified, I10 - Essential (primary) hypertension Coding Level of Care Code New Pt Level 4 (27562) Complex EM visit Add On G2211 Diagnoses Palpitations R00.2 Essential hypertension I10 CPT Codes EKG - CPT: 25027-[id number], Complete ([id number])
== END 2025-01-14 09:33 | disposition home or self-care (01) ==
LOC: HO.HCS 08:52
PROVIDERS: PCP Internal Medicine; Visit Provider Internal Medicine Cardiovascular Disease
DX: R00.2 Palpitations (principal); I10 Essential (primary) hypertension
CPT/HCPCS: 93010; 99214; G2211

== ENCOUNTER → 2025-01-14 08:51 | Outpatient (BNVA) | payer MEDICARE, SELFPAY | PROVIDERS: PCP Internal Medicine; Visit Provider Internal Medicine Cardiovascular Disease | DX: R00.2 Palpitations (principal); R06.09 Other forms of dyspnea; I10 Essential (primary) hypertension | CPT/HCPCS: 93005; 99212 ==

== ENCOUNTER 2025-01-16 15:50 | Outpatient (AMB) | payer MEDICARE, SELFPAY ==
--- NOTE | 2025-01-16 15:53 | HO.NEPHOV_ITS ---
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 Her blood pressure is generally well-controlled at home, with readings around 120/60 mmHg, but she has experienced episodes of significant elevation, reaching up to 220/100 mmHg. These episodes have led to two emergency room visits, where no significant abnormalities were found, and she was discharged with medication adjustments. The patient has been experiencing heart palpitations, which she associates with episodes of high blood pressure. She denies any history of surgeries, sweating, lightheadedness, urinary issues, or leg swelling. She has recently quit alcohol consumption approximately 50 days ago. The patient is currently on hydrochlorothiazide for hypertension management, but notes that increasing the dose causes her blood pressure to drop too low. 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 11/14/24 - The patient is a 69-year-old female presenting with a follow-up for blood pressure management. - White coat hypertension: Elevated readings in clinical settings, normal at home. - Blood pressure monitoring: Daytime average 120/70 mmHg, nighttime average 112/63 mmHg, 24-hour average 118/68 mmHg. - Calcification of coronary arteries: Age-related changes detected during a heart scan. - Pulmonary evaluation: Conducted due to coughing with phlegm, no significant lung findings. 01/16/25 The patient is a 69 year old individual presenting for a follow-up visit to review lab results and manage kidney health. Recent blood tests from December 28 show stable kidney function with a GFR of 55, which is considered not bad. It was noted that while this may be categorized as stage 3 kidney disease, the patient's renal function is considered better than this classification based on patterns since 2019. Recent potassium, sodium, and BUN levels are good. The patient is taking hydrochlorothiazide for blood pressure management. The patient denies any trouble breathing or swelling in the legs. A recent cardiac test was passed with good results. [facility] Medical History BONIFACIO I (cervical intraepithelial neoplasia I) Encounter for well woman exam with routine gynecological exam Pyelonephritis Pelvic pain in female Impaired glucose tolerance Right elbow pain Vitamin D insufficiency Dyslipidemia Vitamin D deficiency GERD (gastroesophageal reflux disease) Hypercholesterolemia Hypertension Surgical History History of appendectomy Hx of colonoscopy H/O right breast biopsy Family History Father Lung cancer Mother Stroke Hypertension Social History Household Members: None Housing: House Do you presently have visiting nurse or other home services: No Alcohol intake: never Patient Tobacco Use Status: Former Tobacco user Tobacco use type: Cigarette e-Cigarette/Vaping Use: Never Used Second Hand Smoke Exposure: No Advance Directives Date on File: 11/17/23 service: No Current occupational status: employed Current occupational exposures/hazards: No Sexual orientation: Straight/Heterosexual Gender identity: Female Cognitive needs: No Hearing needs: No Vision needs: Yes Physical Exam Vital Signs: Last Vital Signs Pulse 68 01/16/25 15:54 BP 132/60 01/16/25 15:54 Pulse Ox 97 01/16/25 15:54 Oxygen Delivery Method Room Air 01/16/25 15:54 BMI result Body Mass Index 25.3 Comfortable Neck supple no JVD. Lungs entry equal no rales. Heart S1-S2 heard no gallop or rub. Abdomen soft nontender. Neuro alert awake oriented. No asterixis. Extremities no edema. Results Reviewed Nephrology Results: Sodium, (135-145) 142 mmol/L 12/28/24 Potassium, (3.3-5.1) 3.9 mmol/L 12/28/24 Chloride, (96-108) 104 mmol/L 12/28/24 Carbon Dioxide, (22-29) 30 mmol/L H 12/28/24 BUN, (9-16) 21 mg/dL H 12/28/24 Creatinine, (0.5-1.4) 1.01 mg/dL 12/28/24 Calcium, (8.4-10.2) 9.7 mg/dL 12/28/24 Assessment & Plan Assessment & Plan (1) Hypertension: Comment: no meds-states only high in md offices Code(s): I10 - Essential (primary) hypertension Category: Medical (2) Benign essential hypertension: Code(s): I10 - Essential (primary) hypertension Category: Medical (3) Palpitations: Code(s): R00.2 - Palpitations Category: Medical (4) White coat syndrome with diagnosis of hypertension: Code(s): I10 - Essential (primary) hypertension Category: Medical Plan 69-year-old woman with borderline hypertension. At home her blood pressure has been in the normal range. However the office readings elevated. This clearly raises the suspicion for white coat effect. However she has been experiencing palpitations. She has had spiking blood pressure in the range of 220 mm Hg. Secondary causes should be evaluated. Check metanephrines and 24 urine collection for catecholamines. In the past she had a CT scan which showed wedge-shaped deformities in the kidneys suggestive of either pyelonephritis or infarcts. We will check plasma renin and serum aldosterone as well.. Today I have not made any changes to her medications. Encouraged her to stay on low-sodium diet. Further workup will be determined by the outcome of the baseline investigations. Thank you 11/14/24 - 69-year-old female with HTN - BAsed on 24 hr ABPM, she has White coat hypertension: Elevated readings in clinical settings, normal at home. - 24 hr Blood pressure monitoring: Daytime average 120/70 mmHg, nighttime average 112/63 mmHg, 24-hour average 118/68 mmHg. No change in anti hypertensive Moitor BP at home - of note Calcification of coronary arteries seen on CT scan ; s/b CArdiology Renal fx is stable at baseline Cr 1.01 ( eGFR reported at 55 ml.mt) Creatinine was 1.12 in 2019 Probably has some age related nephron loss. Creatinine of 1.01 is acceptable for her age Orders: Orders Basic Metabolic Panel 6 Months I10 - Essential (primary) hypertension Coding Level of Care Code Est Pt Level 4 (81270) Diagnoses Essential hypertension I10 Benign essential hypertension I10 Palpitations R00.2 White coat syndrome with diagnosis of hypertension I10
[2025-01-16 15:54] VITALS: BP 132/60; PULSE 68; O2SAT 97; BMI 25.3
--- OUTSIDE RECORDS SUMMARY | 2025-01-16 20:48 | XMS_ITS | Continuity of Care Document ---
Author Organization [place] - [facility], [facility] Address [address] [place] [address] Care Team Providers Care It Program Engagement Director Name Role Phone DIEGO GARCIA Referring Provider ELLEN CAPPS Primary Care Provider [phone] Assessment No assessment recorded. Plan of Treatment Reminders Order Date Submit Date Provider Last Modified By Organization Details Last Modified Time Details Appointments None record ed. Lab None record ed. Referral None record ed. Procedures None record ed. Surgeries None record ed. Imaging None record ed. Medication Orders None record ed. Patient TargetsNo targets recorded. Patient InstructionsNo instructions recorded. Reason for Referral None Reported. Problems Name Problem SNOMED Code Status Onset Date Resolution Date Notes Provider Name and Address Organization Details Recorded Time Tinnitus of vascular origin 819605799 Active 2017 Pulsatile tinnitus, bilateral; Note: Date Diagnosed: 10/23/2017 4:16 PM (H93.A3) Not Available [facility] 4 03:19:33 Tension-t ype headache 697145803 Active 2018 Tension headache NOS; Note: Date Diagnosed: 12/31/2018 3:26 PM (G44.209) Not Available [facility] 4 03:19:33 Chronic sialadeni tis 985930871 Active 2020 Chronic sialoadeni tis; Note: Date Diagnosed: 08/11/2020 3:39 PM (K11.21) Not Available [facility] 4 03:19:33 Dysphonia 70908924 Active 2021 Hoarseness ; Note: Date Diagnosed: 11/02/2021 5:23 PM (R49.0) Not Available [facility] 4 03:19:34 Posterior rhinorrhe a 40179193 Active 2021 Postnasal drip; Note: Date Diagnosed: 12/23/2021 5:52 PM (R09.82) Not Available [facility] 4 03:19:33 Acute sialoaden itis 393736186 Active 2024 TRACEE NOLEN MD [address],[place] [facility] [place], [place], [address] , [facility] - [facility] 5 10:50:18 Sialolith iasis 59786398 Active 2024 TRACEE NOLEN MD [address],[facility] [address], [place], [address] , [facility] - [facility] [place] 5 10:50:24 Problem Notes None recorded. Procedures Surgical History Date Name Laterality Status Provider Name and Address Organization Details Recorded Time salivary stone removal completed TRACEE NOLEN MD [address] [address], [place], [address], [facility] - [facility] [place] 03/15/2024 10:51:04 Imaging Results None recorded. Procedure [...] mg tablet TAKE 1 TABLET BY MOUTH AT BEDTIME active Not Available Not Available No t Available triamcino lone acetonide 55 mcg nasal spray aerosol 2018 active Medicati on ID: [id number] D uration Value: 30 Brand Name: triamcin [...] mg tablet TAKE 1 TABLET BY MOUTH DAILY active Not Available Not Available No t Available albuterol sulfate HFA 90 mcg/actua tion aerosol inhaler INHALE 2 PUFFS EVERY 4 TO 6 HOURS NEEDED FOR SHORTNES S OF BREATH OR FOR WHEEZE active Not Available Not Available No t Available ondansetr on 4 mg disintegr ating tablet TAKE 1 TABLET BY MOUTH EVERY 8 HOURS 03/15 completed Not Available Not Available Not Available Vitamin D3 25 mcg (1,000 unit) capsule TAKE 1 CAPSULE BY MOUTH DAILY active Not Available Not Available No t Available Allergy Relief (loratadi ne) 10 mg tablet 2018 active Medicati on ID: [id number] D uration Value: 30 Brand Name: loratadi ne Send Method: E-Prescr ibed Sub s Allowed: subs OK Speci al Instruct ion: TAKE 1 TABLET BY MOUTH EVERY DAY Medi cationGe nericNam e: loratadi ne Not Available Not Available Not Available Flonase Allergy Relief 50 mcg/actua tion nasal spray,zia pension [place] 2 spray into both nostrils once a day 03/15 completed Medicati on ID: [id number] D uration Value: 30 Brand Name: Flonase Allergy Relief S end Method: E-Prescr ibed Sub s Allowed: subs OK Medic ationGen ericName : Flonase Allergy Relief Not Available Not Available Not Available Vitals Date Recorded Body height Body mass index (BMI) Body weight Provider Name and Address Organization Details Last Updated DateTime 01/15/2025 152.4 cm 28.5 kg/m2 92539.49 g Huber Stevenson [place] - [facility] 01/15/2025 15:21:03 Social History None recorded. Functional Status None recorded. Mental Status None recorded. Family History Nothing Reported. Medical History No medical history recorded. Gynecological HistoryNo gynecological history recorded. Obstetrics History GPAL:G 0 P 0 0 0 0 Past Encounters Encounter ID Performer Location Encounter Start Date Encounter Closed Date Diagnosis/Indication Diagnosis SNOMED-CT Code Diagnosis ICD10 Code Diagnosis IMO Codes Diagnosis Note [id number] TRACEE NOLEN MD [facility] on [address] [place] [address] 01/15/2025 15:18:59 01/15/2025 15:59:41 Sialolithiasis 33057329 K11.5 Resolved. Good salivary drainage on milking of the gland. She may f/u as needed. Health Concerns Section Related Observation LastModified by Organization Detai ls LastModified Time None Recorded Concern Status LastModified by Organization Details LastModified Time None Recorded Payers Encounter Date Sequence Insurance Name Policy Number Policy Dai Covered Member ID Dai Member ID Guarantor Name 01/15/2025 1 [place] [employer] Jazmyn Narvaez [id number] 2 Jazmyn Narvaez 01/15/2025 2 [facility] ([place] [id number] Jazmyn Shermanor [id number] Jazmyn Narvaez Notes Date Note Type Note Provider Name and Address Organization Details Recorded Time 01/15/2025 text/html ROS as noted in the HPI She has a history of right submandibular transoral salivary stone removed in the office at a prior visit. She denies any pain or swelling when she eats. TRACEE NOLEN MD [address] [place] [address], [place], [address], [facility] - [facility] 01/15/2025 15:53:50 OBGyn Episode No OBEpisode recorded.
--- OUTSIDE RECORDS SUMMARY | 2025-01-16 20:48 | XMS_ITS | Data Portability ---
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 Name Role Phone DIEGO GARCIA Referring Provider [...] Details Recorded Time Tinnitus of vascular origin 235335390 Active 2017 Pulsatile tinnitus, bilateral; Note: Date Diagnosed: 10/23/2017 4:16 PM (H93.A3) Not Available [facility] 4 03:19:33 Tension-t ype headache 647846036 Active 2018 Tension headache NOS; Note: Date Diagnosed: 12/31/2018 3:26 PM (G44.209) Not Available [facility] 4 03:19:33 Chronic sialadeni tis 425843639 Active 2020 Chronic sialoadeni tis; Note: Date Diagnosed: 08/11/2020 3:39 PM (K11.21) Not Available [facility] 4 03:19:33 Dysphonia 64918560 Active 2021 Hoarseness ; Note: Date Diagnosed: 11/02/2021 5:23 PM (R49.0) Not Available [facility] 4 03:19:34 Posterior rhinorrhe a 65744147 Active 2021 Postnasal drip; Note: Date Diagnosed: 12/23/2021 5:52 PM (R09.82) Not Available [facility] 4 03:19:33 Acute sialoaden itis 264354522 Active 2024 TRACEE NOLEN MD [address] [facility],[place] [address], [facility] [place], [address] , [facility] - [facility] 5 10:50:18 Sialolith iasis 56970889 Active 2024 TRACEE NOLEN MD [address] [facility],[place] [address], [facility] [place], [address] , [facility] - [facility] [place] 5 10:50:24 Problem Notes None recorded. Procedures Surgical History Date Name Laterality Status Provider Name and Address Organization Details Recorded Time salivary stone removal completed TRACEE NOLEN MD [address] [facility],[place] [address], [place], [address], [facility] - [facility] 03/15/2024 10:51:04 Imaging Results None recorded. Procedure [...] spray aerosol 2018 active Medicati on ID: [id number] D uration Value: 30 Brand Name: triamcin [...] mg tablet 2018 active Medicati on ID: [id number] D uration Value: 30 Brand Name: loratadi ne Send Method: E-Prescr ibed Sub s Allowed: subs OK Speci al Instruct ion: TAKE 1 TABLET BY MOUTH EVERY DAY Medi cationGe nericNam e: loratadi ne Not Available Not Available Not Available Flonase Allergy Relief 50 mcg/actua tion nasal spray,zia pension [place] 2 spray into both nostrils once a day 03/15 completed Medicati on ID: [id number] D uration Value: 30 Brand Name: Flonase Allergy Relief S end Method: E-Prescr ibed Sub s Allowed: subs OK Medic ationGen ericName : Flonase Allergy Relief Not Available Not Available Not Available Vitals Date Recorded Body height Body mass index (BMI) Body weight Provider Name and Address Organization Details Last Updated DateTime 03/15/2024 152.4 cm 28.5 kg/m2 70286.49 g Huber Stevenson [place] - [facility] 03/15/2024 10:28:53 Date Recorded Body height Body mass index (BMI) Body weight Provider Name and Address Organization Details Last Updated DateTime 07/03/2024 152.4 cm 28.5 kg/m2 74025.49 g Huber Stevenson [place] - [facility] 07/03/2024 15:44:41 Date Recorded Body height Body mass index (BMI) Body weight Provider Name and Address Organization Details Last Updated DateTime 01/15/2025 152.4 cm 28.5 kg/m2 21952.49 g Huber Stevenson [place] - [facility] 01/15/2025 15:21:03 Social History None recorded. Functional Status None recorded. Mental Status None recorded. Family History Nothing Reported. Medical History No medical history recorded. Gynecological HistoryNo gynecological history recorded. Obstetrics History GPAL:G 0 P 0 0 0 0 Past Encounters Encounter ID Performer Location Encounter Start Date Encounter Closed Date Diagnosis/Indication Diagnosis SNOMED-CT Code Diagnosis ICD10 Code Diagnosis IMO Codes Diagnosis Note [id number] TRACEE NOLEN MD [facility] on [address] [place] [address] 03/15/2024 10:01:34 03/15/2024 10:50:26 Acute sialoadenitis 469269420 K11.21 resolved, no purulence after stone removal Sialolithiasis 99871475 K11.5 informed consent for stone removal obtained, stone removed, she tolerated well, i encouraged hydration and massage, f/u 4 months for a recheck. no need for additional abx. [id number] TRACEE NOLEN MD [facility] on [address] [place] [phone] 07/03/2024 15:42:30 07/03/2024 16:10:08 Sialolithiasis 58549035 K11.5 Resolved. Good salivary drainage on milking of the gland. I gave reassuranc e I do not see other stones or lesions. I will recheck in 6 months. [id number] TRACEE NOLEN MD [facility] on [address] [place] [address] 01/15/2025 15:18:59 01/15/2025 15:59:41 Sialolithiasis 39104899 K11.5 Resolved. Good salivary drainage on milking [...] Dai Member ID Guarantor Name 03/14/2024 2 [employer] Jazmyn Narvaez [id number] Jazmyn Narvaez 01/12/2025 1 [place] [employer] Jazmyn Narvaez [id number] 2 Jazmyn Narvaez 01/13/2025 2 [employer] [id number] Jazmyn Narvaez [id number] 51 Jazmyn Narvaez Notes Date Note Type [...] submandibular swelling after eating. TRACEE NOLEN MD [address] [place] [address], [address], [place] - [facility] 03/15/2024 10:52:48 07/03/2024 text/html ROS as noted in the HPI She has a history of right submandibular transoral salivary stone removal in the office at the last visit. She denies any pain or swelling when she eats. She reports she had some dental work in [place] and reports some roughness on the right side of her floor of mouth. TRACEE NOLEN MD [address] [place] [address], [address], [place] - [facility] 07/03/2024 16:10:20 01/15/2025 text/html ROS as noted in the HPI She has a history of right submandibular transoral salivary stone removed in the office at a prior visit. She denies any pain or swelling when she eats. TRACEE NOLEN MD [address] [place] [address], [phone], [place] - [facility] 01/15/2025 15:53:50 OBGyn Episode No OBEpisode recorded.
== END 2025-01-16 16:01 | disposition home or self-care (01) ==
LOC: HO.HKA 15:51
PROVIDERS: PCP Internal Medicine; Visit Provider Internal Medicine Hypertension Specialist
DX: I10 Essential (primary) hypertension (principal); R00.2 Palpitations
CPT/HCPCS: 99214

== ENCOUNTER → 2025-01-16 15:50 | Outpatient (BNVA) | payer MEDICARE, SELFPAY | PROVIDERS: PCP Internal Medicine; Visit Provider Internal Medicine Hypertension Specialist | DX: I10 Essential (primary) hypertension (principal); R00.2 Palpitations | CPT/HCPCS: 99212 ==

== ENCOUNTER 2025-01-22 13:56 | Outpatient (AMB) | payer MEDICARE, SELFPAY ==
--- NOTE | 2025-01-22 13:56 | A.OFFVIS_ITS ---
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 The patient has no complaints. The pathology showed the following: Squamous and endocervical glandular mucosa with atrophic and reactive changes; negative for dysplasia (see comment). -Biopsy site changes. B. Cervix, posterior cervical lip, conization: -Squamous and endocervical glandular mucosa with atrophic and reactive changes; negative for dysplasia (see comment). -Biopsy site changes. C. Endocervix, conization: -Endocervical glandular mucosa with biopsy site changes; negative for dysplasia. D. Endocervix, post cone curettage: -Scant fragments of stroma with rare benign endocervical glandular cells. Comment: The morphologic changes appear reactive. Immunostains for p16 and review of the previous Pap test are pending; addendum to follow. Addendum #1 Immunostain for p16 on A shows predominantly negative and focal patchy staining. P16 on B shows patchy staining. There is no evidence of high-grade dysplasia. The patient's previous Pap test (CY25- 1132) shows atypical parakeratatotic cells that are not seen in the current biopsy. Electronically Signed By: Sue Peterson MD 01/13/25 [id number] [facility] Medical History BONIFACIO I (cervical intraepithelial neoplasia I) Encounter for well woman exam with routine gynecological exam Pyelonephritis Pelvic pain in female Impaired glucose tolerance Right elbow pain Vitamin D insufficiency Dyslipidemia Vitamin D deficiency GERD (gastroesophageal reflux disease) Hypercholesterolemia Hypertension Surgical History History of appendectomy Hx of colonoscopy H/O right breast biopsy Family History Father Lung cancer Mother Stroke Hypertension Social History Household Members: None Housing: House Do you presently have visiting nurse or other home services: No Alcohol intake: never Patient Tobacco Use Status: Former Tobacco user Tobacco use type: Cigarette e-Cigarette/Vaping Use: Never Used Second Hand Smoke Exposure: No Advance Directives Date on File: 11/17/23 service: No Current occupational status: employed Current occupational exposures/hazards: No Sexual orientation: Straight/Heterosexual Gender identity: Female Cognitive needs: No Hearing needs: No Vision needs: Yes Review of Systems Const All systems reviewed & are unremarkable except as noted in HPI and below Reports as per HPI and Reports no additional complaints GI Reports no additional complaints Reports no additional complaints Telehealth Telehealth Telehealth Platform: [facility] Location of provider rendering services: practice address Location of patient: address on file Patient Identification confirmed using: Name, : Yes Telehealth method: video Patient verbally consented to treatment: Yes Patient verbally consented to billing insurance company: Yes Patient informed of any privacy concerns related to visit: Yes Minutes spent on Phone/Video with Pt.: 3 Assessment & Plan Assessment & Plan (1) LGSIL on Pap smear of cervix: Comment: Cannot exclude high-grade NIDIA HPV positive, HPV 16/18 negative Negative pathology Code(s): R87.612 - Low grade squamous intraepithelial lesion on cytologic smear of cervix (LGSIL) Category: Medical Plan: Discussed with the patient the results of the pathology, it sensitivity, specificity, false-positive false-negative rate. Recommended Co testing in 1 year. All questions answered, the patient verbalized understanding I spent a total of 20 minutes reviewing the chart, talking to the patient via video and documenting in the medical record. Coding Level of Care Code Tele Est Pt Level 3 (80842) Diagnoses LGSIL on Pap smear of cervix R87.612
--- OUTSIDE RECORDS SUMMARY | 2025-01-22 16:59 | XMS_ITS | Continuity of Care Document ---
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 Plan of Treatment [...] Details Recorded Time Tinnitus of vascular origin 871739877 Active 2017 Pulsatile tinnitus, bilateral; Note: Date Diagnosed: 10/23/2017 4:16 PM (H93.A3) Not Available [facility] 4 03:19:33 Tension-t ype headache 541215056 Active 2018 Tension headache NOS; Note: Date Diagnosed: 12/31/2018 3:26 PM (G44.209) Not Available [facility] 4 03:19:33 Chronic sialadeni tis 428090710 Active 2020 Chronic sialoadeni tis; Note: Date Diagnosed: 08/11/2020 3:39 PM (K11.21) Not Available [facility] 4 03:19:33 Dysphonia 07249189 Active 2021 Hoarseness ; Note: Date Diagnosed: 11/02/2021 5:23 PM (R49.0) Not Available [facility] 4 03:19:34 Posterior rhinorrhe a 66018926 Active 2021 Postnasal drip; Note: Date Diagnosed: 12/23/2021 5:52 PM (R09.82) Not Available [facility] 4 03:19:33 Acute sialoaden itis 699331190 Active 2024 TRACEE NOLEN MD [address],[place] [facility], [place], [address] , [facility] - [facility] 5 10:50:18 Sialolith iasis 73620473 Active 2024 TRACEE NOLEN MD [address],[facility] [address], [place], [address] , [facility] - [facility] [place] 5 10:50:24 Problem Notes None recorded. Procedures Surgical History Date Name Laterality Status Provider Name and Address Organization Details Recorded Time salivary stone removal completed TRACEE NOLEN MD [address] [address], [place], [address], [facility] - [facility] 03/15/2024 10:51:04 Imaging Results None recorded. Procedure [...] spray aerosol 2018 active Medicati on ID: [id number] D uration Value: 30 Brand Name: triamcin [...] mg tablet 2018 active Medicati on ID: [id number] D uration Value: 30 Brand Name: loratadi ne Send Method: E-Prescr ibed Sub s Allowed: subs OK Speci al Instruct ion: TAKE 1 TABLET BY MOUTH EVERY DAY Medi cationGe nericNam e: loratadi ne Not Available Not Available Not Available Flonase Allergy Relief 50 mcg/actua tion nasal spray,zia pension [place] 2 spray into both nostrils once a day 03/15 completed Medicati on ID: [id number] D uration Value: 30 Brand Name: Flonase Allergy Relief S end Method: E-Prescr ibed Sub s Allowed: subs OK Medic ationGen ericName : Flonase Allergy Relief Not Available Not Available Not Available Vitals Date Recorded Body height Body mass index (BMI) Body weight Provider Name and Address Organization Details Last Updated DateTime 01/15/2025 152.4 cm 28.5 kg/m2 03649.49 g Huber Stevenson [place] - [facility] 01/15/2025 15:21:03 Social History None recorded. Functional Status None recorded. Mental Status None recorded. Family History Nothing Reported. Medical History No medical history recorded. Gynecological HistoryNo gynecological history recorded. Obstetrics History GPAL:G 0 P 0 0 0 0 Past Encounters Encounter ID Performer Location Encounter Start Date Encounter Closed Date Diagnosis/Indication Diagnosis SNOMED-CT Code Diagnosis ICD10 Code Diagnosis IMO Codes Diagnosis Note [id number] TRACEE NOLEN MD [facility] on [address] [place] [address] 01/15/2025 15:18:59 01/15/2025 15:59:41 Sialolithiasis 12100269 K11.5 Resolved. Good salivary drainage on milking of the gland. She may f/u as needed. Health Concerns Section Related Observation LastModified by Organization Detai ls LastModified Time None Recorded Concern Status LastModified by Organization Details LastModified Time None Recorded Payers Encounter Date Sequence Insurance Name Policy Number Policy Dai Covered Member ID Dai Member ID Guarantor Name 01/15/2025 1 [place] [employer] Jazmyn Narvaez [id number] Jazmyn Narvaez 01/15/2025 2 [facility] ([place] [id number] Jazmyn Shermanor [id number] Jazmyn Narvaez Notes Date Note Type Note Provider Name and Address Organization Details Recorded Time 01/15/2025 text/html ROS as noted in the HPI She has a history of right submandibular transoral salivary stone removed in the office at a prior visit. She denies any pain or swelling when she eats. TRACEE NOLEN MD [address] [place] [address], [place], [address], [facility] - [facility] 01/15/2025 15:53:50 OBGyn Episode No OBEpisode recorded.
--- OUTSIDE RECORDS SUMMARY | 2025-01-22 16:59 | XMS_ITS | Data Portability ---
Author Organization [place] - [facility], Allergy Address [address] [address] Care Team Providers Care Research And Development Director Name Role Phone DIEGO GARCIA Referring [...] Details Recorded Time Tinnitus of vascular origin 878619612 Active 2017 Pulsatile tinnitus, bilateral; Note: Date Diagnosed: 10/23/2017 4:16 PM (H93.A3) Not Available [facility] 4 03:19:33 Tension-t ype headache 572090572 Active 2018 Tension headache NOS; Note: Date Diagnosed: 12/31/2018 3:26 PM (G44.209) Not Available [facility] 4 03:19:33 Chronic sialadeni tis 778325699 Active 2020 Chronic sialoadeni tis; Note: Date Diagnosed: 08/11/2020 3:39 PM (K11.21) Not Available [facility] 4 03:19:33 Dysphonia 53657083 Active 2021 Hoarseness ; Note: Date Diagnosed: 11/02/2021 5:23 PM (R49.0) Not Available [facility] 4 03:19:34 Posterior rhinorrhe a 25673370 Active 2021 Postnasal drip; Note: Date Diagnosed: 12/23/2021 5:52 PM (R09.82) Not Available [facility] 4 03:19:33 Acute sialoaden itis 203375778 Active 2024 TRACEE NOLEN MD [address] [facility],[place] [address], [facility] [place], [address] , [facility] - [facility] 5 10:50:18 Sialolith iasis 79206383 Active 2024 TRACEE NOLEN MD [address] [facility],[place] [address], [place], [address] , [facility] - [facility] [place] 5 10:50:24 Problem Notes None recorded. Procedures Surgical History Date Name Laterality Status Provider Name and Address Organization Details Recorded Time salivary stone removal completed TRACEE NOLEN MD [address] [facility],[place] [address], [place], [address], [facility] - [facility] 03/15/2024 10:51:04 Imaging Results None recorded. [...] spray aerosol 2018 active Medicati on ID: [id number] D uration Value: 30 Brand Name: triamcin [...] mg tablet 2018 active Medicati on ID: [id number] D uration Value: 30 Brand Name: loratadi ne Send Method: E-Prescr ibed Sub s Allowed: subs OK Speci al Instruct ion: TAKE 1 TABLET BY MOUTH EVERY DAY Medi cationGe nericNam e: loratadi ne Not Available Not Available Not Available Flonase Allergy Relief 50 mcg/actua tion nasal spray,zia pension [place] 2 spray into both nostrils once a day 03/15 completed Medicati on ID: [id number] D uration Value: 30 Brand Name: Flonase Allergy Relief S end Method: E-Prescr ibed Sub s Allowed: subs OK Medic ationGen ericName : Flonase Allergy Relief Not Available Not Available Not Available Vitals Date Recorded Body height Body mass index (BMI) Body weight Provider Name and Address Organization Details Last Updated DateTime 03/15/2024 152.4 cm 28.5 kg/m2 82900.49 g Huber Stevenson [place] - [facility] 03/15/2024 10:28:53 Date Recorded Body height Body mass index (BMI) Body weight Provider Name and Address Organization Details Last Updated DateTime 07/03/2024 152.4 cm 28.5 kg/m2 75117.49 g Huber Stevenson [place] - [facility] 07/03/2024 15:44:41 Date Recorded Body height Body mass index (BMI) Body weight Provider Name and Address Organization Details Last Updated DateTime 01/15/2025 152.4 cm 28.5 kg/m2 44693.49 g Huber Stevenson [place] - [facility] 01/15/2025 15:21:03 Social History None recorded. Functional Status None recorded. Mental Status None recorded. Family History Nothing Reported. Medical History No medical history recorded. Gynecological HistoryNo gynecological history recorded. Obstetrics History GPAL:G 0 P 0 0 0 0 Past Encounters Encounter ID Performer Location Encounter Start Date Encounter Closed Date Diagnosis/Indication Diagnosis SNOMED-CT Code Diagnosis ICD10 Code Diagnosis IMO Codes Diagnosis Note [id number] TRACEE NOLEN MD [facility] on [address] [place] [address] 03/15/2024 10:01:34 03/15/2024 10:50:26 Acute sialoadenitis 374647696 K11.21 resolved, no purulence after stone removal Sialolithiasis 45524592 K11.5 informed consent for stone removal obtained, stone removed, she tolerated well, i encouraged hydration and massage, f/u 4 months for a recheck. no need for additional abx. [id number] TRACEE NOLEN MD [facility] on [address] [place] [address] 07/03/2024 15:42:30 07/03/2024 16:10:08 Sialolithiasis 11761432 K11.5 Resolved. Good salivary drainage on milking of the gland. I gave reassuranc e I do not see other stones or lesions. I will recheck in 6 months. [id number] TRACEE NOLEN MD [facility] on [address] [place] [address] 01/15/2025 15:18:59 01/15/2025 15:59:41 Sialolithiasis 17546520 K11.5 Resolved. Good salivary drainage on milking [...] Dai Member ID Guarantor Name 03/14/2024 2 [facility] [employer] Jazmyn Narvaez [id number] Jazmyn Narvaez 01/12/2025 1 [place] [employer] Jazmyn Narvaez [id number] 2 Jazmyn Narvaez 01/13/2025 2 [employer] [id number] Jazmyn Narvaez [id number] Jazmyn Narvaez Notes Date Note Type [...] submandibular swelling after eating. TRACEE NOLEN MD [address] [place] [address], [address], [place] - [facility] 03/15/2024 10:52:48 07/03/2024 text/html ROS as noted in the HPI She has a history of right submandibular transoral salivary stone removal in the office at the last visit. She denies any pain or swelling when she eats. She reports she had some dental work in [place] and reports some roughness on the right side of her floor of mouth. TRACEE NOLEN MD [address] [place] [address], [address], [place] - [facility] 07/03/2024 16:10:20 01/15/2025 text/html ROS as noted in the HPI She has a history of right submandibular transoral salivary stone removed in the office at a prior visit. She denies any pain or swelling when she eats. TRACEE NOLEN MD [address] [place] [address], [address], [place] - [facility] 01/15/2025 15:53:50 OBGyn Episode No OBEpisode recorded.
== END 2025-01-22 14:23 | disposition home or self-care (01) ==
LOC: HO.HWS 13:56
PROVIDERS: PCP Internal Medicine; Visit Provider Obstetrics & Gynecology
DX: R87.612 Low grade squamous intraepithelial lesion on cytologic smear of cervix (LGSIL) (principal)
CPT/HCPCS: 99213